=== PATIENT | female | born 1945 | race Caucasian/White ===

== ENCOUNTER 2018-03-08 13:19 | Inpatient (IN) ==
--- NOTE | 2018-03-08 13:56 | Emergency Department Note ---
Disposition Clinical Impression: History of multiple myeloma, Left elbow pain Fever Qualifiers: Fever type: unspecified Qualified Code(s): R50.9 - Fever, unspecified Disposition: Admitted As Inpatient Condition: Good Referrals: Karthikeyan Quinones MD [Primary Care Provider] - Forms: ED Satisfaction Letter Time of Disposition: 17:19 Fever HPI - General Chief Complaint: ED Fever Stated Complaint: fever, CA PT Time Seen by Provider: 03/08/18 13:39 Source: patient Mode of arrival: wheelchair Limitations: no limitations Nursing Notes Reviewed: Yes Vital Signs Reviewed: Yes - History of Present Illness HPI Narrative: Patient is a 72-year-old female with past medical history of hypertension, hyperlipidemia, diabetes, left elbow surgery at the beginning of February. She also has a history of multiple myeloma and follows up with her cancer center. She has not started any chemotherapy at this time and goes for bone biopsy this coming week. She presents today due to fever, generalized fatigue. She denies any cough, phlegm production, chest pain, shortness of breath, nausea, vomiting , abdominal pain, dysuria, hematuria. Denies any URI symptoms. She does note very mild redness around her incision site on the left elbow and states that it is mildly tender to the touch. Otherwise, no other concern for any other skin breakdown or any other skin lesions anywhere else. Is not on any immuno suppressive medications. - Related Data Home Medications Medication Instructions Recorded Confirmed Atorvastatin [Lipitor] 10 mg PO HS 02/14/18 03/08/18 Cholecalciferol (D-3) [Vitamin D] 2,000 unit PO DAILY 02/14/18 03/08/18 Citalopram Hydrobromide 20 mg PO BID 02/14/18 03/08/18 [Citalopram HBr] Fesoterodine Fumarate [Toviaz] 4 mg PO DAILY 02/14/18 03/08/18 Furosemide [Lasix] 20 mg PO DAILY PRN 02/14/18 03/08/18 Metformin HCl 1,000 mg PO BID 02/14/18 03/08/18 Pantoprazole Sodium [Protonix] 40 mg PO DAILY 02/14/18 03/08/18 Verapamil [Isoptin] 120 mg PO BID 02/14/18 03/08/18 Vit C/E/Zn/Coppr/Lutein/Zeaxan 1 cap PO DAILY 02/14/18 03/08/18 [Preservision Areds 2 Softgel] Ubidecarenone [Co Q10] 200 mg PO DAILY 02/24/18 03/08/18 Ferrous Sulfate [Iron] 325 mg PO BID 03/08/18 03/08/18 Previous Rx's Medication Instructions Recorded Dexamethasone [Decadron] 5 tab PO QWEEK #60 tab 02/24/18 Lenalidomide [Revlimid] 25 mg PO DAILY #14 capsule 02/24/18 Allergies Allergy/AdvReac Type Severity Reaction Status Date / Time Sulfa (Sulfonamide Allergy Hives Verified 03/08/18 13:27 Antibiotics) All systems ED: reviewed and negative except as stated. Constitutional: Reports: fever Cardiovascular: Denies: chest pain Respiratory: Denies: cough, dyspnea Gastrointestinal: Denies: abdominal pain, nausea, vomiting, diarrhea Genitourinary: Denies: urgency, dysuria, frequency Musculoskeletal: Denies: back pain, neck pain Integumentary: Denies: rash Neurological: Denies: headache, weakness, numbness, paresthesias Fever PMH - Past Medical History Medical history: Reports: arthritis, diabetes, GERD, hypertension Surgical history: Reports: appendectomy, cholecystectomy, hysterectomy, knee replacement Psychiatric history: Reports: anxiety, depression - Social History Smoking Status: Never smoker Alcohol use: Reports: rarely Drug use: Reports: none Physical Exam - General Limitations: no limitations General appearance: alert, in no apparent distress - Head Head exam: atraumatic, normocephalic, normal inspection - Eye Eye exam: Present: normal appearance, PERRL, EOMI - ENT ENT exam: normal exam, normal oropharynx, mucous membranes moist - Neck Neck exam: Present: normal inspection, full ROM, trachea midline - Chest Chest inspection: Present: normal inspection, symmetric chest wall rise - Respiratory Respiratory exam: Present: normal lung sounds bilaterally - Cardiovascular Cardiovascular exam: Present: regular rate, normal rhythm, normal heart sounds - Abdominal Exam Abdominal exam: Present: soft, Non-Tender. Absent: tenderness, distention, guarding, rebound, rigidity - Extremities Exam Extremities exam: Present: full ROM, other (Very mild pink 2 cm x 2 cm area near the left elbow incision, mild overlying tenderness. No obvious signs of any cellulitis or abscess.). Absent: tenderness, pedal edema - Neurological Exam Neurological exam: Present: alert, oriented X3 - Psychiatric Psychiatric exam: Present: normal affect, normal mood - Skin Skin exam: Present: warm, dry, intact, normal color Course Course Narrative: Patient had a temperature of 103.5 on presentation. Physical exam fairly benign except for some mild pinkness around the left elbow incision site but no overt cellulitis or abscess appreciated. We will perform basic workup including urinalysis, chest x-ray, respiratory panel, flu to assess for any other infectious etiologies. I do not feel that the left elbow is source of infection at this time. 17:16 lactic acid within normal limits. Blood cultures have been sent. chest x-ray negative. Urinalysis negative. Basic blood work shows hyponatremia that is near baseline for the patient. Patient still feels unwell. We will admit for fever of unknown origin at this time. Dr. Zamora has requested that I talk with orthopedics due to concern for left elbow. I talked with Dr. Mayfield who has requested an x-ray of the left elbow. This has been ordered. Medicine will follow up on x-ray imaging. Consult has been placed for orthopedics to see the patient tomorrow. Empiric vancomycin and Zosyn have been started. Tylenol givne for fever. Chest X-Ray 03/08/18 13:56 IMPRESSION: No acute cardiopulmonary disease. D/ / 03/08/2018 14:40:56 Power Omalley MD / flo Interpreting Provider: Power Omalley MD Vital Signs Temperature 103.2 F H 03/08/18 13:25 Pulse Rate 81 03/08/18 13:25 Respiratory Rate 18 03/08/18 13:25 Blood Pressure 186/90 03/08/18 13:25 O2 Sat by Pulse Oximetry 95 03/08/18 13:25 Temperature 100.2 F H 03/08/18 16:03 Pulse Rate 88 03/08/18 16:03 Respiratory Rate 17 03/08/18 16:03 Blood Pressure 149/72 03/08/18 16:03 O2 Sat by Pulse Oximetry 96 03/08/18 16:03 Oxygen Delivery Oxygen Delivery Room Air Fever - MDM Narrative Medical decision making narrative: Patient had a temperature of 103.5 on presentation. Physical exam fairly benign except for some mild pinkness around the left elbow incision site but no overt cellulitis or abscess appreciated. We will perform basic workup including urinalysis, chest x-ray, respiratory panel, flu to assess for any other infectious etiologies. I do not feel that the left elbow is source of infection at this time. 17:16 lactic acid within normal limits. Blood cultures have been sent. chest x-ray negative. Urinalysis negative. Basic blood work shows hyponatremia that is near baseline for the patient. Patient still feels unwell. We will admit for fever of unknown origin at this time. Dr. Zamora has requested that I talk with orthopedics due to concern for left elbow. I talked with Dr. Mayfield who has requested an x-ray of the left elbow. This has been ordered. Medicine will follow up on x-ray imaging. Consult has been placed for orthopedics to see the patient tomorrow. Empiric vancomycin and Zosyn have been started. Tylenol givne for fever. - Medical Records Medical records reviewed: Yes I reviewed the patient's medical records. - Lab Data Lab results reviewed: Yes I reviewed the patient's lab results. Result diagrams: 03/08/18 14:26 03/08/18 14:26 Lab Results 03/08/18 03/08/18 03/08/18 Range/Units 14:26 14:26 14:26 WBC 10.9 (4.3-11.1) K/mcL RBC 2.74 L (3.82-4.97) M/mcL Hgb 8.9 L (11.5-15.4) g/dL Hct 27.5 L (35.3-44.9) % MCV 100.4 H (83.0-100.0) fL MCH 32.5 (28.0-33.3) pg MCHC 32.4 (31.6-35.5) g/dL RDW 17.5 H (11.5-14.5) % Plt Count 244 (140-400) K/mcL MPV 9.6 (9.4-12.4) fL Immature Gran % 0.4 (0-4) % Seg Neutrophils % 57.5 % Lymphocytes % 32.9 % Monocytes % 8.3 % Eosinophils % 0.8 % Basophils % 0.1 % Neutrophils # 6.3 (1.6-8.9) K/mcL Lymphocytes # 3.6 (0.6-4.6) K/mcL Monocytes # 0.9 (0.0-1.3) K/mcL Eosinophils # 0.1 (0.0-0.6) K/mcL Basophils # 0.0 (0.0-0.2) K/mcL Nucleated RBCs/100 WBC 0.2 H (0) /100 WBC Sodium 129 L (136-145) mEq/L Potassium 3.6 (3.5-5.1) mEq/L Chloride 102 (98-107) mEq/L Carbon Dioxide 29 (23-29) mEq/L BUN 12 (8-23) mg/dL Creatinine 0.65 (0.60-1.20) mg/dL Est GFR ( Amer) > 60 (> 60) Est GFR (Non-Af Amer) > 60 (> 60) BUN/Creatinine Ratio 18 (6-26) Glucose 133 H (70-105) mg/dL Calculated Osmolality 270 L (280-300) Lactic Acid 1.6 (0.5-2.2) mmol/L Calcium 8.9 (8.6-10.3) mg/dL Urine Color (Yellow) Urine Clarity (Clear) Urine pH (5.0-8.0) pH Units Ur Specific [place] (1.010-1.025) Urine Protein (Neg-Trace) mg/dL Urine Glucose (UA) (Normal) mg/dL Urine Ketones (Negative) mg/dL Urine Blood (Negative) Urine Nitrite (Negative) Urine Bilirubin (Negative) Urine Urobilinogen (Normal) mg/dL Ur Leukocyte Esterase (Negative) Ur Culture Indicated? (NO) Chlamy pneumoniae PCR (Not Detect) Adenovirus (PCR) (Not Detect) B. pertussis DNA (PCR) (Not Detect) B.parapertussis DNA PCR (Not Detect) Coronavirus OC43 (PCR) (Not Detect) Coronavirus HKU1 (PCR) (Not Detect) Coronavirus 229E (PCR) (Not Detect) Coronavirus NL63 (PCR) (Not Detect) Human Metapneumovir PCR (Not Detect) Influenza A (H1) PCR (Not Detect) Influ A (H1N1/09) PCR (Not Detect) Influenza A (H3) PCR (Not Detect) Influenza A Untype (PCR) (Not Detect) Influenza Type B (PCR) (Not Detect) M.pneumoniae DNA (PCR) (Not Detect) Parainfluenza 1 (PCR) (Not Detect) Parainfluenza 2 (PCR) (Not Detect) Parainfluenza 3 (PCR) (Not Detect) Parainfluenza 4 (PCR) (Not Detect) RSV (PCR) (Not Detect) Entero/Rhino (PCR) (Not Detect) Specimen Rejected 03/08/18 03/08/18 03/08/18 Range/Units 14:55 15:08 15:26 WBC (4.3-11.1) K/mcL RBC (3.82-4.97) M/mcL Hgb (11.5-15.4) g/dL Hct (35.3-44.9) % MCV (83.0-100.0) fL MCH (28.0-33.3) pg MCHC (31.6-35.5) g/dL RDW (11.5-14.5) % Plt Count (140-400) K/mcL MPV (9.4-12.4) fL Immature Gran % (0-4) % Seg Neutrophils % % Lymphocytes % % Monocytes % % Eosinophils % % Basophils % % Neutrophils # (1.6-8.9) K/mcL Lymphocytes # (0.6-4.6) K/mcL Monocytes # (0.0-1.3) K/mcL Eosinophils # (0.0-0.6) K/mcL Basophils # (0.0-0.2) K/mcL Nucleated RBCs/100 WBC (0) /100 WBC Sodium (136-145) mEq/L Potassium (3.5-5.1) mEq/L Chloride (98-107) mEq/L Carbon Dioxide (23-29) mEq/L BUN (8-23) mg/dL Creatinine (0.60-1.20) mg/dL Est GFR ( Amer) (> 60) Est GFR (Non-Af Amer) (> 60) BUN/Creatinine Ratio (6-26) Glucose (70-105) mg/dL Calculated Osmolality (280-300) Lactic Acid (0.5-2.2) mmol/L Calcium (8.6-10.3) mg/dL Urine Color Yellow (Yellow) Urine Clarity Clear (Clear) Urine pH 7.5 (5.0-8.0) pH Units Ur Specific [place] 1.017 (1.010-1.025) Urine Protein Negative (Neg-Trace) mg/dL Urine Glucose (UA) Normal (Normal) mg/dL Urine Ketones Negative (Negative) mg/dL Urine Blood Negative (Negative) Urine Nitrite Negative (Negative) Urine Bilirubin Negative (Negative) Urine Urobilinogen Normal (Normal) mg/dL Ur Leukocyte Esterase Negative (Negative) Ur Culture Indicated? NO (NO) Chlamy pneumoniae PCR Not Detected (Not Detect) Adenovirus (PCR) Not Detected (Not Detect) B. pertussis DNA (PCR) Not Detected (Not Detect) B.parapertussis DNA PCR Not Detected (Not Detect) Coronavirus OC43 (PCR) Not Detected (Not Detect) Coronavirus HKU1 (PCR) Not Detected (Not Detect) Coronavirus 229E (PCR) Not Detected (Not Detect) Coronavirus NL63 (PCR) Not Detected (Not Detect) Human Metapneumovir PCR Not Detected (Not Detect) Influenza A (H1) PCR Not Detected (Not Detect) Influ A (H1N1/09) PCR Not Detected (Not Detect) Influenza A (H3) PCR Not Detected (Not Detect) Influenza A Untype (PCR) Not Detected (Not Detect) Influenza Type B (PCR) Not Detected (Not Detect) M.pneumoniae DNA (PCR) Not Detected (Not Detect) Parainfluenza 1 (PCR) Not Detected (Not Detect) Parainfluenza 2 (PCR) Not Detected (Not Detect) Parainfluenza 3 (PCR) Not Detected (Not Detect) Parainfluenza 4 (PCR) Not Detected (Not Detect) RSV (PCR) Not Detected (Not Detect) Entero/Rhino (PCR) Not Detected (Not Detect) Specimen Rejected Container - Radiology Data Radiology results reviewed: Yes I reviewed the patient's radiology results. S.B.A.R. - S.B.A.R. Situation: Demographics, MOA Background: Presenting Complaint, Relevant PMH, Meds, & Allergies Assessment: Vital Signs, Course and respsone to treatment, Exam Concerns, Patient/Family Expectation, Pertinant Lab Results Recommendation: Barrier(s) to disposition, Recommendation based on pending studies, treatments, or consults S.B.A.R. Report Given to: Dr Sera Alejo Repor Time: 17:20 Attestation Statement - Attestation Attestation: I examined this patient and my medical decision-making was reviewed with the Resident Physician. I agree with the documented findings, disposition and treatment plan as described except to the extent set forth below. Fever without certain cause, cultures sent, the left arm is a little more red than normal but has not declared itself as a potential source of infection. I would at this point admit for observation, observe left arm, start antibiotics given history of significant co morbidity.
[2018-03-08 14:42] LABS: Basophils % 0.1 %; Eosinophils # 0.1 K/mcL (0.0-0.6); Eosinophils % 0.8 %; Hematocrit 27.5 % (35.3-44.9); Hemoglobin 8.9 g/dL (11.5-15.4); Immature Granulocytes % 0.4 % (0-4); Lymphocytes # 3.6 K/mcL (0.6-4.6); Lymphocytes % 32.9 %; Mean Corpuscular HGB Conc 32.4 g/dL (31.6-35.5); Mean Corpuscular Hemoglobin 32.5 pg (28.0-33.3); Mean Corpuscular Volume 100.4 fL (83.0-100.0); Mean Platelet Volume 9.6 fL (9.4-12.4); Monocytes # 0.9 K/mcL (0.0-1.3); Monocytes % 8.3 %; Neutrophils # 6.3 K/mcL (1.6-8.9); Nucleated Red Blood Cells 0.2 /100 WBC (0); Platelet Count 244 K/mcL (140-400); Red Blood Count 2.74 M/mcL (3.82-4.97); Red Cell Distribution Width 17.5 % (11.5-14.5); Segmented Neutrophils % 57.5 %
[2018-03-08 15:01] LABS: BUN/Creatinine Ratio 18 (6-26); Blood Urea Nitrogen 12 mg/dL (8-23); Calcium 8.9 mg/dL (8.6-10.3); Carbon Dioxide 29 mEq/L (23-29); Chloride 102 mEq/L (98-107); Glucose 133 mg/dL (70-105); Osmolality,Calculated 270 (280-300); Potassium 3.6 mEq/L (3.5-5.1); Sodium 129 mEq/L (136-145); eGFR For Non-African Americans > 60 (> 60)
[2018-03-08 16:09] LABS: Bilirubin,Urine Negative (Negative); Blood,Urine Negative (Negative); Clarity,Urine Clear (Clear); Color,Urine Yellow (Yellow); Glucose,Urine (UA) Normal (Normal); Ketones,Urine Negative (Negative); Leukocyte Esterase,Urine Negative (Negative); Nitrite,Urine Negative (Negative); PH,Urine 7.5 pH Units (5.0-8.0); Protein,Urine Negative (Neg-Trace); Specific Gravity,Urine 1.017 (1.010-1.025); Urobilinogen,Urine Normal (Normal)
[2018-03-08 16:26] LABS: Adenovirus Not Detected (Not Detect); Bordetella Pertussis Not Detected (Not Detect); Chlamydophila pneumoniae Not Detected (Not Detect); Coronavirus 229E Not Detected (Not Detect); Coronavirus HKU1 Not Detected (Not Detect); Coronavirus NL63 Not Detected (Not Detect); Coronavirus OC43 Not Detected (Not Detect); Human Metapneumovirus Not Detected (Not Detect); Human Rhinovirus/Enterovirus Not Detected (Not Detect); Influenza A Subtype 2009 H1 Not Detected (Not Detect); Influenza A Untypeable Not Detected (Not Detect); Influenza B Not Detected (Not Detect); Mycoplasma pneumoniae Not Detected (Not Detect); Parainfluenza Virus 1 Not Detected (Not Detect); Parainfluenza Virus 2 Not Detected (Not Detect); Parainfluenza Virus 3 Not Detected (Not Detect); Parainfluenza Virus 4 Not Detected (Not Detect); Respiratory Syncytial Virus Not Detected (Not Detect)
[2018-03-08] MEDS ORDERED: Piperacillin/Tazobactam 3.375 GM in 0.9 % Sodium Chloride Mini Bag 100 ML IVPB ONE (16:58)
[2018-03-08] MEDS ORDERED: *HR* Dextrose 50 % in Water (Syg) 50 ML SYRINGE IVP PRN (20:15)
[2018-03-08] MEDS ORDERED: D5% in Water 1,000 ML IVC PRN (20:15)
[2018-03-08] MEDS ORDERED: Naloxone 0.4 MG/ML INJ IVP PRN (20:15)
[2018-03-08] MEDS ORDERED: Dextrose Gel 15 GM/37.5 ML TUBE PO PRN ×2 (20:15)
[2018-03-08] MEDS ORDERED: Vancomycin (wt based) 1,000 MG VIAL IVPB SCH (21:00)
--- NOTE | 2018-03-08 21:04 | Internal Med History&Physical ---
Date of Encounter: 03/08/18 Time of Encounter: 19:50 Internal Medicine - H&P: HPI Chief complaint: fever, chills, elbow pain Admitted From: Emergency Dept Plans for Post Hospital Care: Home History of present illness: Ms. Wayne is a 72 year old female who presents to the ER today with complaints of sudden onset of fevers, chills, sweats, and left elbow pain. Symptoms started at 11:00 this morning and have persisted ever since. She was feeling well up until then. In the ER, she had temperature spikes up to 103.2 degrees Fahrenheit. Her labs did not suggest an elevated white count or evidence of end-organ damage. However, her sodium level is low. ER contacted me to admit patient. Given her recent elbow surgery roughly 2 weeks ago and recent diagnosis of multiple myeloma, I was concerned about sepsis. I asked ER staff to contact orthopedics to discuss imaging of her elbow for concerns as a source of infection. An x-ray was performed which was negative. Upon my assessment of the patient several hours later on the floor, patient appears clinically ill and septic. Her blood pressure is preserved and she is not in shock. However, she is having active rigors, sweating, and running a fever. She complains of significant pain in her left elbow which started suddenly today. She is able to flex and extend her elbow, but not to the degree she was able to do so yesterday. It is full, warm, tender, but without erythema or any sign of wound infection. Nonetheless, I worry about the elbow as a source of infection. She has no other prosthetic or vascular access device present. I called and spoke with Dr. Ortiz regarding further imaging modality and for advice, and he recommended proceeding with a noncontrast CT of the elbow and orthopedics will see her in the morning. Past Med Surg Social Fam HX - Past Medical History Attestation: Yes The following information was validated with the patient. Source: patient, old records reviewed Medical history: arthritis, diabetes, GERD, hypertension, other (multiple myeloma) Additional medical history: sleep apnea Psychiatric history: anxiety, depression - Past Surgical History Surgical History: appendectomy, cholecystectomy, hysterectomy, knee replacement , orthopedic, other (left elbow surgery 2 weeks ago) Additional surgical history: bilateral cataracts - Social History Smoking Status: Never smoker Smokeless Tobacco Status: No Alcohol use: rarely Drug use: none Current living situation: Home - Independent Activity Level: Independent ambulation Recent Out of Country Travel Within the Last 8 Weeks: No - Family History Sister Hx Family Cardiac Disorders: Yes (OR) Hx Family Cancer: Yes (Colon) Grandfather Hx Family Cardiac Disorders: Yes (Stroke) Internal Medicine - H&P: Meds Atorvastatin [Lipitor] 10 mg PO HS 02/14/18 [History] Cholecalciferol (D-3) [Vitamin D] 2,000 unit PO DAILY 02/14/18 [History] Citalopram Hydrobromide [Citalopram HBr] 20 mg PO BID 02/14/18 [History] Fesoterodine Fumarate [Toviaz] 4 mg PO DAILY 02/14/18 [History] Furosemide [Lasix] 20 mg PO DAILY PRN 02/14/18 [History] Metformin HCl 1,000 mg PO BID 02/14/18 [History] Pantoprazole Sodium [Protonix] 40 mg PO DAILY 02/14/18 [History] Verapamil [Isoptin] 120 mg PO BID 02/14/18 [History] Vit C/E/Zn/Coppr/Lutein/Zeaxan [Preservision Areds 2 Softgel] 1 cap PO DAILY 05/25 [History] Dexamethasone [Decadron] 5 tab PO QWEEK #60 tab 02/24/18 [Rx] Lenalidomide [Revlimid] 25 mg PO DAILY #14 capsule 02/24/18 [Rx] Ubidecarenone [Co Q10] 200 mg PO DAILY 02/24/18 [History] Ferrous Sulfate [Iron] 325 mg PO BID 03/08/18 [History] 3 Allergy/AdvReac Type Severity Reaction Status Date / Time Sulfa (Sulfonamide Allergy Hives Verified 03/08/18 13:27 Antibiotics) - Constitutional Constitutional: chills, fatigue, fever(s), night sweats - EENT Eyes: no blurry vision, no change in vision Ears: no tinnitus Nose, mouth and throat: no nasal congestion, no sinus pressure, no sore throat - Cardiovascular Cardiovascular ROS IM: no chest pain, no dyspnea, no dyspnea on exertion, no edema - Respiratory Respiratory: no cough, no hemoptysis, no chest congestion, no excessive phlegm production, no change in phlegm color - Gastrointestinal Gastrointestinal: nausea, no abdominal pain, no diarrhea, no hematemesis, no hematochezia, no melena, no vomiting - Genitourinary Genitourinary: no dysuria, no flank pain, no hematuria - Musculoskeletal Musculoskeletal ROS IM: arthralgias (left elbow -- sudden onset today), no back pain - Integumentary Integumentary IM: no rash, no jaundice - Neurological Neurological ROS: no focal weakness, no frequent falls, no headache(s) - Psychiatric Psychiatric: no anxiety, no depression - Endocrine Endocrine IM: no polydipsia, no polyuria - Allergic/Immunologic Allergic/Immunologic: no wheezing, no GI upset with certain foods - Constitutional Vitals: Temp Pulse Resp BP Pulse Ox 100.9 F H 82 15 158/83 94 03/08/18 18:59 03/08/18 18:59 03/08/18 18:59 03/08/18 18:59 03/08/18 18:59 General appearance: Present: cooperative, A&O X 3, pleasant Exam: acutely ill but non-toxic, active rigors, sweating, and complaining of significant left elbow pain - Head Head exam: Present: atraumatic, normal inspection - Eye Eye exam: Present: EOMI, PERRL. Absent: scleral icterus Pupils: Present: normal accommodation - ENT ENT exam: Present: mucous membranes dry, normal exam, normal oropharynx - Neck Neck exam general surgery: Present: full ROM, supple. Absent: tenderness, nuchal rigidity, thyromegaly - Respiratory Respiratory exam: Present: CTAB, tachypnea. Absent: chest wall tenderness, rales, respiratory distress, rhonchi, wheezes - Cardiovascular Cardiovascular exam: Present: distant heart sounds, RRR, +S1, +S2. Absent: diastolic murmur, systolic murmur - GI/Abdominal GI/Abdominal exam: Present: normal bowel sounds, soft. Absent: guarding, hepatomegaly, mass, rebound, splenomegaly, tenderness - Extremities Exam Extremities exam: Present: joint swelling (left elbow -- warm, tender, decreased range of motion; wound appears intact and without drainage), warm, radial pulses palpable and symmetrical. Absent: calf tenderness, full ROM ( decreased ROM left elbow), pedal edema - Back Exam Back exam: Absent: CVA tenderness (L), CVA tenderness (R) - Neurological Exam Neurological exam: Present: alert, CN II-XII intact, oriented X3, no focal deficits - Psychiatric Psychiatric exam: Present: normal affect, normal mood - Skin Skin exam: Present: dry, intact, warm Additional comments: left elbow wound intact, clean, dry, and without drainage; however, left elbow warm and very tender Internal Med - H&P Results - Labs CBC & Chem 7: 03/08/18 14:26 03/08/18 14:26 - Diagnostic Studies Chest x-ray Status: image reviewed by me (negative) Other Images Status: image reviewed by me (Left Elbow -- negative) - Assessment and plan (1) Sepsis Current Visit: Yes Status: Acute Assessment and plan: 1. Given recent diagnosis of multiple myeloma and recent elbow surgery, I worry about the left elbow as source of infection. 2. I spoke with Dr. Ortiz and will proceed with CT imaging of elbow. 3. Orthopedics consulted. 4. Blood cultures drawn. 5. Will continue IV Vancomycin and Zosyn. 6. Will trend lactate levels and monitor closely. 7. Continue IVF and monitor BP/hemodynamics. Qualifiers: Sepsis type: sepsis due to unspecified organism Qualified Code(s): A41.9 - Sepsis, unspecified organism (2) Multiple myeloma Current Visit: Yes Status: Chronic Assessment and plan: 1. Patient has yet to start treatment. 2. Patient due to have bone marrow biopsy and begin treatment next week. 3. Consult oncology if necessary. Qualifiers: Multiple myeloma remission status: not in remission Qualified Code(s): C90.00 - Multiple myeloma not having achieved remission (3) Diabetes type 2, controlled Current Visit: Yes Status: Chronic Assessment and plan: 1. Hold oral meds. 2. Will monitor glucose and provide SSI coverage. Qualifiers: Diabetes mellitus fdc insulin use: without machine long goods helper use Diabetes mellitus complication status: without complication Qualified Code(s): E11.9 - Type 2 diabetes mellitus without complications (4) DVT prophylaxis Current Visit: Yes Status: Acute Assessment and plan: 1. Heparin SQ.
[2018-03-08] MEDS: 0.9 % Sodium Chloride w KCl 20 MEQ/1,000 ML MLS IVC SCH (21:19)
--- NOTE | 2018-03-08 21:34 | Orthopedic Consult Note ---
Date of Encounter: 03/08/18 Time of Encounter: 18:00 Assessment and Plan (1) History of arthroplasty Current Visit: No Status: Acute POW#3 s/p left total elbow arthroplasty [id number] Xrays today showed stable bony alignment and hardware intact with no acute abnormalities. Incision appears to be healing well with no obvious s/s infection at this time. Do not suspect this to be the source of the fever at this time. ROM as tolerated. Continue NWB. May ice and elevate elbow as needed. Orthopedics will continue to monitor closely for any changes to elbow. (2) Fever Current Visit: Yes Status: Acute workup and antibiotics per primary team. Qualifiers: Fever type: unspecified Qualified Code(s): R50.9 - Fever, unspecified History of Present Illness Chief complaint: fever HPI: Ms. Wayne is a 72 year old female who presented to the ER with sudden onset of fevers and chills around 11am today. She does have recent h/o left total elbow arthroplasty 02/14/18 and recent diagnosis of multiple myeloma for which she has just started following with oncology and scheduled for bone biopsy soon. She states she was doing well up until today. States fever came on quickly and she generally has not felt well since then. Denies any injuries to the elbow, denies any drainage from the incision. States she has had a little decrease in motion compared to earlier this week but no significant increase in pain with motion of the elbow. Denies any new numbness or tingling. Denies any chest pain or SOB at time of exam. Past Med Surg Social Fam HX - Past Medical History Medical history: arthritis, diabetes, GERD, hypertension Additional medical history: sleep apnea Psychiatric history: anxiety, depression - Past Surgical History Surgical History: appendectomy, cholecystectomy, hysterectomy, knee replacement Additional surgical history: bilateral cataracts - Social History Smoking Status: Never smoker Smokeless Tobacco Status: No Alcohol use: rarely Drug use: none - Family History Sister Hx Family Cardiac Disorders: Yes ([place]) Hx Family Cancer: Yes (Colon) Grandfather Hx Family Cardiac Disorders: Yes (Stroke) Medications and Allergies Atorvastatin [Lipitor] 10 mg PO HS 02/14/18 [History] Cholecalciferol (D-3) [Vitamin D] 2,000 unit PO DAILY 02/14/18 [History] Citalopram Hydrobromide [Citalopram HBr] 20 mg PO BID 02/14/18 [History] Fesoterodine Fumarate [Toviaz] 4 mg PO DAILY 02/14/18 [History] Furosemide [Lasix] 20 mg PO DAILY PRN 02/14/18 [History] Metformin HCl 1,000 mg PO BID 02/14/18 [History] Pantoprazole Sodium [Protonix] 40 mg PO DAILY 02/14/18 [History] Verapamil [Isoptin] 120 mg PO BID 02/14/18 [History] Vit C/E/Zn/Coppr/Lutein/Zeaxan [Preservision Areds 2 Softgel] 1 cap PO DAILY 05/25 [History] Dexamethasone [Decadron] 5 tab PO QWEEK #60 tab 02/24/18 [Rx] Lenalidomide [Revlimid] 25 mg PO DAILY #14 capsule 02/24/18 [Rx] Ubidecarenone [Co Q10] 200 mg PO DAILY 02/24/18 [History] Ferrous Sulfate [Iron] 325 mg PO BID 03/08/18 [History] 3 Allergy/AdvReac Type Severity Reaction Status Date / Time Sulfa (Sulfonamide Allergy Hives Verified 03/08/18 13:27 Antibiotics) All Systems Reviewed: The remainder of the systems were reviewed and are negative - Constitutional Constitutional: as per HPI - Cardiovascular Cardiovascular: as per HPI - Respiratory Respiratory: as per HPI - Musculoskeletal Musculoskeletal: as per HPI Physical Exam - Constitutional Vitals: Temp Pulse Resp BP Pulse Ox 100.9 F H 82 15 158/83 94 03/08/18 18:59 03/08/18 18:59 03/08/18 18:59 03/08/18 18:59 03/08/18 18:59 - Elbow left Location of pain elbow: posterior (Incision well healed with small areas of scab still intact, no surrounding erythema to incision, small roughly quarter sized area of very mild erythema on medial side of incision just proximal to olecranon. minimal swelling and warmth within expectation postoperative. No significant tenderness to palpation, no fluctuance noted. ROM roughly 20-90 degrees at elbow. full hand and wrist motion. brisk cap refill. grossly NV intact. ) Results - Labs Result Diagrams: 03/08/18 14:26 03/08/18 14:26 Labs: Abnormal lab results RBC 2.74 M/mcL (3.82-4.97) L 03/08/18 14:26 Hgb 8.9 g/dL (11.5-15.4) L 03/08/18 14:26 Hct 27.5 % (35.3-44.9) L 03/08/18 14:26 MCV 100.4 fL (83.0-100.0) H 03/08/18 14:26 RDW 17.5 % (11.5-14.5) H 03/08/18 14:26 Nucleated RBCs/100 WBC 0.2 /100 WBC (0) H 03/08/18 14:26 Sodium 129 mEq/L (136-145) L 03/08/18 14:26 Glucose 133 mg/dL (70-105) H 03/08/18 14:26 Calculated Osmolality 270 (280-300) L 03/08/18 14:26 All other labs normal. - Diagnostic results Elbow x-ray: report reviewed, image reviewed Consult Discharge Plan - Plan Referrals: Karhtikeyan Quinones MD [Primary Care Provider] - - Attending Attestation Case and plan of care discussed with supervising physician who was available for all aspects of care.
[2018-03-08] MEDS ORDERED: Ondansetron 4 MG/2 ML VIAL IVP PRN (22:27)
[2018-03-08] MEDS: Acetaminophen 325 MG TABLET PO PRN (22:38)
[2018-03-08] MEDS: Piperacillin/Tazobactam 3.375 GM in 0.9 % Sodium Chloride Mini Bag 100 ML IVPB SCH (23:51)
[2018-03-09 03:47] LABS: Basophils % 0.2 %; Eosinophils % 0.2 %; Hematocrit 26.6 % (35.3-44.9); Hemoglobin 8.4 g/dL (11.5-15.4); Immature Granulocytes % 1.1 % (0-4); Lymphocytes # 3.9 K/mcL (0.6-4.6); Lymphocytes % 31.7 %; Mean Corpuscular HGB Conc 31.6 g/dL (31.6-35.5); Mean Corpuscular Hemoglobin 31.2 pg (28.0-33.3); Mean Corpuscular Volume 98.9 fL (83.0-100.0); Mean Platelet Volume 10.2 fL (9.4-12.4); Monocytes # 0.7 K/mcL (0.0-1.3); Monocytes % 5.4 %; Neutrophils # 7.6 K/mcL (1.6-8.9); Platelet Count 244 K/mcL (140-400); Red Blood Count 2.69 M/mcL (3.82-4.97); Segmented Neutrophils % 61.4 %
[2018-03-09 04:02] LABS: INR 1.4; Prothrombin Time 15.4 Seconds (9.4-12.1)
[2018-03-09 04:12] LABS: Alanine Aminotransferase 13 Units/L (7-52); Albumin 3.4 g/dL (3.5-5.7); Albumin/Globulin Ratio 0.6 (1.1-2.2); Alkaline Phosphatase 78 Units/L (34-104); Aspartate Amino Transferase 15 Units/L (13-39); BUN/Creatinine Ratio 15 (6-26); Bilirubin,Total 0.5 mg/dL (0.3-1.0); Blood Urea Nitrogen 10 mg/dL (8-23); Calcium 8.5 mg/dL (8.6-10.3); Carbon Dioxide 23 mEq/L (23-29); Chloride 102 mEq/L (98-107); Globulin 5.4 g/dL (2.4-3.5); Glucose 135 mg/dL (70-105); Magnesium 1.4 mg/dL (1.6-2.6); Osmolality,Calculated 275 (280-300); Potassium 3.4 mEq/L (3.5-5.1); Sodium 132 mEq/L (136-145); Total Protein 8.8 g/dL (6.4-8.9); eGFR For Non-African Americans > 60 (> 60)
[2018-03-09] MEDS: *HR* Heparin 5,000 UNIT/ML VIAL SQ SCH ×2 (05:27→17:21)
[2018-03-09] MEDS: Acetaminophen 325 MG TABLET PO PRN ×2 (05:27→16:20)
--- NOTE | 2018-03-09 06:55 | Orthopedics Progress Note ---
Date of Encounter: 03/09/18 Time of Encounter: 06:53 Subjective Interval history: S: I did review the chart and evaluated the patient this morning. This patient is a 72-year-old female who was treated for pathologic fracture to the left elbow about 3 weeks ago by my partner Dr. Mayfield. She underwent total elbow arthroplasty. Final pathology came back as multiple myeloma. She has been recovering reasonably well however, she was admitted to the hospitalist after developing fevers starting yesterday morning around 11:00 associated with chills. On my evaluation this morning the patient does indicate that the chills have resolved and her feelings of illness have improved. She currently denies any pain to the left elbow and feels that it is functioning well. She denies any other pains throughout the extremities. O: She has been febrile yesterday. The incision has healed nicely to the left elbow. There is no redness, drainage , and minimal swelling. No induration or fluctuance. I can gently passively range the elbow from 30 degrees to 100 degrees without any pain. I can gently pronate and supinate the forearm without pain. She has full motion to the wrist and the digits. The patient can actively flex and extend all digits, extend the thumb, cross the index and long fingers, make an okay sign, and oppose the thumb. The fingertips are all grossly sensate and well-perfused, and the radial artery pulse is 2+. I did review the x-rays and the CT scan of the left elbow which do show a well- positioned total elbow arthroplasty area and no effusion is appreciated on the CT scan. A: Fevers of unknown origin. Post left total elbow arthroplasty. P: Though the patient does have fevers which appear to be cyclical, the clinical appearance of the total elbow is very benign with painless motion and unremarkable imaging. No significant pushing, pulling, or lifting with the left elbow or active elbow extension. We will observe clinically at this point. No plans for surgical intervention on the left elbow at this time. Objective Vital signs: Vital Signs Temp Pulse Resp BP Pulse Ox 03/09/18 06:30 100.8 F H 88 17 113/56 94 03/09/18 03:46 98.8 F 77 15 149/75 90 03/08/18 22:38 103.1 F H 97 14 166/74 94 Intake and Output 03/08/18 03/08/18 03/09/18 15:59 23:59 07:59 Intake Total 600 / 600 100 / 100 Output Total 250 / 250 800 / 800 Balance 350 / 350 -700 / -700 Intake: IV Fluids 600 / 600 100 / 100 Zosyn 3.375 GM In 0.9 % Sodium 100 / 100 100 / 100 Chloride (Mini-Bag +) 100 ML @ 25 mls/hr IVPB Q8HR DAISY Rx#: [id number] Vancocin 1,750 MG In 0.9 % 500 / 500 Sodium Chloride 500 ML @ 334. 014 mls/hr IVPB ONCE ONE Rx#: [id number] Oral 0 / 0 0 / 0 Output: Urine 250 / 250 800 / 800 Other: Blood Glucose* 133 - Labs CBC & BMP: 03/09/18 02:59 03/09/18 02:59 Labs: Abnormal lab results WBC 12.3 K/mcL (4.3-11.1) H 03/09/18 02:59 RBC 2.69 M/mcL (3.82-4.97) L 03/09/18 02:59 Hgb 8.4 g/dL (11.5-15.4) L 03/09/18 02:59 Hct 26.6 % (35.3-44.9) L 03/09/18 02:59 RDW 18.0 % (11.5-14.5) H 03/09/18 02:59 Nucleated RBCs/100 WBC 0.2 /100 WBC (0) H 03/08/18 14:26 PT 15.4 Seconds (9.4-12.1) H 03/09/18 02:59 APTT 23.0 Seconds (26.0-36.0) L 03/09/18 02:59 Sodium 132 mEq/L (136-145) L 03/09/18 02:59 Potassium 3.4 mEq/L (3.5-5.1) L 03/09/18 02:59 Glucose 135 mg/dL (70-105) H 03/09/18 02:59 POC Glucose 133 mg/dL (70-99) H 03/08/18 21:13 Calculated Osmolality 275 (280-300) L 03/09/18 02:59 Calcium 8.5 mg/dL (8.6-10.3) L 03/09/18 02:59 Magnesium 1.4 mg/dL (1.6-2.6) L 03/09/18 02:59 Albumin 3.4 g/dL (3.5-5.7) L 03/09/18 02:59 Globulin 5.4 g/dL (2.4-3.5) H 03/09/18 02:59 Albumin/Globulin Ratio 0.6 (1.1-2.2) L 03/09/18 02:59 Consult Discharge Plan - Plan Referrals: Karthikeyan Quinones MD [Primary Care Provider] -
[2018-03-09] MEDS: 0.9 % Sodium Chloride w KCl 20 MEQ/1,000 ML MLS IVC SCH (07:20)
[2018-03-09] MEDS: Insulin LISPRO 300 UNITS/3 ML VIAL SQ SCH ×3 (09:00→16:21)
[2018-03-09] MEDS: Multivit/Ca/Min/Fe/FA 1 TAB TABLET PO SCH (09:04)
[2018-03-09] MEDS: Cholecalciferol (D-3) 1,000 UNIT TABLET PO SCH (09:04)
[2018-03-09] MEDS: Acyclovir 200 MG CAPSULE PO SCH ×2 (09:05→20:48)
[2018-03-09] MEDS: Piperacillin/Tazobactam 3.375 GM in 0.9 % Sodium Chloride Mini Bag 100 ML IVPB SCH ×3 (09:07→23:51)
[2018-03-09] MEDS: traMADol 50 MG TABLET PO PRN ×2 (11:34→22:25)
--- NOTE | 2018-03-09 13:59 | Infectious Disease Consult ---
Date of Encounter: 03/09/18 Time of Encounter: 13:49 Assessment and Plan (1) Sepsis Status: Acute Assessment and plan: The patient had two SIRS criteria. Likely secondary to RUE cellulitis. Fever curve is improving. WBC elevated today. Blood cultures drawn 03/08/18 are pending x 2 sets. Qualifiers: Sepsis type: sepsis due to unspecified organism Qualified Code(s): A41.9 - Sepsis, unspecified organism (2) Cellulitis Status: Acute Assessment and plan: Location: RUE. Etiology unclear, but the patient did have Dtap and Pneumococcal vaccines on . Non-purulent. Causative organism unclear. Check ESR and CRP. Get CT of the RUE with IV contrast. Continue Vancomycin IV. Pharmacy to dose. Goal trough ~15. Continue Zosyn 3.375 grams IV Q8H. Duration of treatment depends on the clinical picture. Monitor renal function and for drug toxicity and dose-adjust antibiotics. Qualifiers: Site of cellulitis: extremity Site of cellulitis of extremity: upper extremity Laterality: right Qualified Code(s): L03.113 - Cellulitis of right upper limb (3) Anemia Status: Chronic Assessment and plan: Hgb stable at around 8. Continue to trend. Further workup and management per the primary team. Qualifiers: Anemia type: unspecified type Qualified Code(s): D64.9 - Anemia, unspecified (4) History of arthroplasty Status: Acute Assessment and plan: X-ray and CT of the LUE negative for acute infectious process. (5) History of multiple myeloma Status: Acute Assessment and plan: Diagnosed February 2018. Follows with [facility]. Scheduled for bone biopsy 03/13/18 with Valcade/Revlimid to start 03/14/18. Recommend consult to Hem/Onc. (6) Hypertension Status: Chronic Qualifiers: Hypertension type: unspecified Qualified Code(s): I10 - Essential (primary ) hypertension (7) Diabetes type 2, controlled Status: Chronic Qualifiers: Diabetes mellitus shelter insulin use: without shelter use Diabetes mellitus complication status: without complication Qualified Code(s): E11.9 - Type 2 diabetes mellitus without complications Infectious Disease HPI - Data of Consult Patient: new to practice Consult date: 03/09/18 Requesting Physician: Pura Carrasco MD Primary Care Provider: Karthikeyan Quinones MD - Consult Narrative Reason for consult: Possible Septic Joint History of present illness: Ms. Wayne is a 72 year old female with a past medical history of hypertension, hyperlipidemia, diabetes, multiple myeloma, newly diagnosed, and status post left total elbow arthroplasty .. The patient was mentioned the hospital March 08 for left elbow pain and multiple myeloma. We are consulted March 09 for further recommendations for possible left elbow septic joint. Briefly, the patient's a 72-year-old female with past medical history as stated above. Apparently, the patient sustained a fall earlier this month and was complaining of some left elbow pain. She had a x-ray that showed a left distal humerus fracture and possible underlying lytic lesion. She was taken to the operating room on February [address] Mayfield and had a left total elbow arthroplasty. Pathology was positive for plasma cell myeloma and she was referred to [facility] for further workup. She saw Dr. Boles and was planning to start treatment in the next couple of weeks. She is scheduled for a bone marrow biopsy on March 13. The patient presented to the emergency department on the day of admission with complaints of fever and left elbow pain. Upon arrival, the patient was febrile with a temperature of 103.2. She was otherwise hemodynamically stable. Laboratory study showed a normal white blood cell count. Lactic acid and kidney function were normal. Urinalysis was negative. Respiratory infectious panel was negative. Blood cultures were obtained 2 sets are pending. Chest x-ray was negative. She had a left elbow x -ray that was negative. She was started empirically on vancomycin and Zosyn and admitted to the hospital for further evaluation. Since admission, the patient's white blood cell count did go up to 12.3 thousand. She has continued to have some intermittent fevers with a MAXIMUM TEMPERATURE of 100.8. Orthopedics was consult and by phone and recommended an elbow CT that showed status post left elbow arthroplasty with a defect in the lateral aspect of the distal humerus that is thought to most likely be postoperative in nature, although infection cannot entirely be excluded. There is no joint effusion, fracture, or other acute osseous abnormality. There was some nonspecific periarticular subcutaneous fat straining with no drainable fluid collection. Orthopedics saw the patient and they do not think that the elbow is the source of the patient's fever. We have been asked to evaluate and make further recommendations. During my exam today, the patient states that she was in her usual state of health until the day of admission when she had sudden-onset of chills, rigors, and fever of 103. She reports an intermittent dull headache that's been ongoing since she feel on February 09. She states she typically takes Tylenol and it goes away. She denies neck pain or stiffness. Denies congestion, earache, or sore throat. Denies chest pain, shortness of breath, or cough. Reports she had some nausea yesterday when she had a fever, but denies vomiting or diarrhea. She reports overactive bladder for which she takes medication, but denies any increase in urinary frequency, dysuria, hematuria, or abdominal pain. She reports some new right sided back pain that started yesterday as well. Reports chronic pain in the right knee secondary to OA that seems to be at baseline. She denies pain, redness, or swelling in her joints, including her right elbow which she recently had surgery on. She states she has been doing physical therapy at home for her right elbow and the surgical incision is healing well. She denies open sores or rashes. Denies oral thrush. Denies dental pain, blurred vision, or dizziness. She denies perirectal pain. The patient lives at home alone. Her daughter lives next door. She denies known sick contacts. States the last time she traveled outside the [facility] was in September when she went to [place] to visit family. States she has a dog, but denies any bites or scratches. Denies chronic infectious diseases. Denies tobacco or illicit drug use. Reports she uses alcohol socially. CC: Pura Carrasco MD Past Med Surg Social Fam HX - Past Medical History Attestation: Yes The following information was validated with the patient. Source: patient, old records reviewed, nursing notes reviewed Medical history: arthritis, diabetes, GERD, hypertension, other (Multiple myeloma) Additional medical history: sleep apnea Psychiatric history: anxiety, depression - Past Surgical History Surgical History: appendectomy, cholecystectomy, hysterectomy, knee replacement (x2), orthopedic, other (Left total elbow replacement 02/14/18) Additional surgical history: bilateral cataracts - Social History Smoking Status: Never smoker Smokeless Tobacco Status: No Alcohol use: rarely Drug use: none Occupational status: retired Current living situation: Home - Independent Activity Level: Independent ambulation Recent Out of Country Travel Within the Last 8 Weeks: No Exposure or Possible Exposure to Illness During Travel: No - Family History Sister Hx Family Cardiac Disorders: Yes ([place]) Hx Family Cancer: Yes (Colon) Grandfather Hx Family Cardiac Disorders: Yes (Stroke) Infectious Disease-CN:Meds Atorvastatin [Lipitor] 10 mg PO HS 02/14/18 [History] Cholecalciferol (D-3) [Vitamin D] 2,000 unit PO DAILY 02/14/18 [History] Citalopram Hydrobromide [Citalopram HBr] 20 mg PO BID 02/14/18 [History] Fesoterodine Fumarate [Toviaz] 4 mg PO DAILY 02/14/18 [History] Furosemide [Lasix] 20 mg PO DAILY PRN 02/14/18 [History] Metformin HCl 1,000 mg PO BID 02/14/18 [History] Pantoprazole Sodium [Protonix] 40 mg PO DAILY 02/14/18 [History] Verapamil [Isoptin] 120 mg PO BID 02/14/18 [History] Vit C/E/Zn/Coppr/Lutein/Zeaxan [Preservision Areds 2 Softgel] 1 cap PO DAILY 05/25 [History] Dexamethasone [Decadron] 5 tab PO QWEEK #60 tab 02/24/18 [Rx] Lenalidomide [Revlimid] 25 mg PO DAILY #14 capsule 02/24/18 [Rx] Ubidecarenone [Co Q10] 200 mg PO DAILY 02/24/18 [History] Ferrous Sulfate [Iron] 325 mg PO BID 03/08/18 [History] Acyclovir [Zovirax] 400 mg PO BID 03/09/18 [History] 3 Allergy/AdvReac Type Severity Reaction Status Date / Time Sulfa (Sulfonamide Allergy Hives Verified 03/08/18 13:27 Antibiotics) All systems: reviewed and no additional remarkable complaints except as stated Exam - Constitutional Vitals: Temp Pulse Resp BP Pulse Ox 100.0 F H 69 16 135/72 93 03/09/18 11:00 03/09/18 11:00 03/09/18 11:00 03/09/18 11:00 03/09/18 11:00 General appearance: cooperative, no acute distress, obese - Head Head exam: Present: atraumatic, normal inspection, normocephalic - Eye Eye exam: Present: EOMI, normal appearance, PERRL Pupils: Present: normal accommodation - ENT ENT exam: Present: mucous membranes moist - Neck Neck exam: Present: normal inspection. Absent: lymphadenopathy, meningismus - Respiratory Respiratory exam: Present: CTAB. Absent: rales, respiratory distress, rhonchi, wheezes - Cardiovascular Cardiovascular exam: Present: RRR, +S1, +S2 - GI/Abdominal GI/Abdominal exam: Present: distended (obese), normal bowel sounds, soft. Absent: tenderness - Extremities Exam Extremities exam: Present: joint swelling (Mild, left elbow), tenderness (Left elbow). Absent: full ROM (ROM of the left elbow mildly limited due to pain. ), pedal edema Additional comments: Surgical incision to the left posterior elbow is well-healed without redness, warmth, or drainage. Mild tenderness with palpation of the area. ROM mildly limited. - Back Exam Back exam: Present: normal inspection, paraspinal tenderness (Right lower back) . Absent: vertebral tenderness - Neurological Exam Neurological exam: Present: alert, oriented X3, no focal deficits - Psychiatric Psychiatric exam: Present: normal affect, normal mood - Skin Skin exam: Present: dry, intact, normal color, warm Infectious Disease CN: Results - Labs CBC & Chem 7: 03/09/18 02:59 03/09/18 02:59 - VTE Documentation of Mechanical Device: Intermittent pneumatic compression device Consult Discharge Plan - Plan Referrals: Karthikeyan Quinones MD [Primary Care Provider] - 03/17/18 1:15 pm - Attending Attestation I examined this patient and my medical decision-making was reviewed with the Resident Physician. I agree with the documented findings, disposition and treatment plan as described except to the extent set forth below. This is an addendum to original report dictated by Shandra Zimmerman CNP. Please refer to Shandra's note for details. Patient is a 64-year-old woman who recently had a pathological fracture of the left distal humerus and underwent a total elbow arthroplasty on 02/14/[address] Luna. Pathology from surgery reveals plasma cell myeloma and fracture. Patient was referred to hematology/oncology and they were planning to start chemotherapy on her. Patient has not received any chemotherapy. On Tuesday patient was seen in the cancer Center where she had Tdap and pneumovax in the right shoulder. On Tuesday patient tells me that she was sitting in her chair where she started having cold chills and rigors. Patient called her daughter who lives about [address] and she checked her temperature she was febrile to the patient was brought into the emergency department for evaluation. Patient states that she has intermittent headaches, she also states that she has intermittent back pain but the rest of the review of system was totally fine. Patient denied any headache, denied any visual changes, denied any sore throat, denied any earache, denies any toothache, denied any chest pain shortness of breath cough or sputum production, denied any GI symptoms including nausea vomiting diarrhea or constipation. Patient did say she had one vomiting episode on the day of admission yesterday but she attributes that to being nervous. Patient denies any urinary symptoms. Patient denies any rash. On physical exam patient surgical wound on the left elbow appears intact with no erythema no drainage no cellulitis no fluctuance. She also has good movement of the elbow with no signs of passive movement pain. On the right shoulder though there is swelling erythema and very warm to touch. I got a sepsis Pen and I circled the erythema. Patient is also very tender there. Clearly the cellulitis. She also states that she is having pain with moving her right shoulder since she had the shot. Assessment and plan: Sepsis Multiple myeloma Cellulitis right shoulder Recent pathological fracture of the left humerus requiring total elbow arthroplasty Allergies to Bactrim gives her a rash Recommendations: At this point patient really has no positive review of system and the only thing on physical exam the I found was the cellulitis on the right shoulder. Patient has had a chest x-ray. She also had one vomiting episode. Patient did have LFTs which were within normal limits did. I think the sepsis is due to cellulitis of the right shoulder but other sources also need to be ruled out. Patient has been started on broad-spectrum antibiotics including vancomycin and Zosyn. I would get a CT of the right upper extremity to rule out myositis or septic arthritis. I will await blood cultures to finalize. In the meantime if patient's fever and chills does not improve significantly and the fact that she had a vomiting episode I might consider getting CT abdomen and pelvis but for now we can just wait and see. Monitor labs and for drug toxicity. Will continue to follow closely. Discussed with the nursing staff and showed her where the cellulitis was.
[2018-03-09] MEDS: 0.9 % Sodium Chloride 1,000 ML IVC SCH (14:33)
[2018-03-09] MEDS ORDERED: Isovue-370 500 ML INFUS..BTL IV ONE (15:43)
--- NOTE | 2018-03-09 16:09 | Internal Med Progress Note ---
Hospitalist Progress Note - Encounter Date of Encounter: 03/09/18 Time of Encounter: 09:00 - Subjective Interval History: Patient was seen and examined at bedside She denies any pain currently. She reports that her fevers and chills have subsided since she has been in the hospital. She is currently eating her breakfast, denies any nausea vomiting or diarrhea She denies any shortness of breath, cough, chest pain, palpitations She denies any calf tenderness, loss of function in her left arm, no recent trauma to the surgical site, denies skin color change or loss of sensation to the Arm - Exam Vitals: Temp Pulse Resp BP Pulse Ox 99.7 F H 79 18 136/80 93 03/09/18 14:45 03/09/18 14:45 03/09/18 14:45 03/09/18 14:45 03/09/18 14:45 Exam: General: Patient is alert, oriented, no acute distress, morbidly obese Head: atraumatic, normocephalic, Eye: normal appearance, PERRL, no scleral icterus, no conjunctival injection ENT: mucous membranes moist, normal external ear exam Neck: normal inspection, trachea midline, full ROM, no carotid bruits Chest: normal inspection, symmetric chest rise Respiratory: Good respiratory effort. Bilateral breath sounds are clear without wheezing, crackles, or rhonchi. Cardiovascular: Regular rate and rhythm. s1 and s2 No clicks, rubs, gallops, or murmors. Abdomen: Bowel sounds present normoactive x-4 quadrants. Abdomen is soft, nondistended. no Epigastric tenderness. No guarding or rebound. No organomegaly noted, obese musculoskeletal: Spontaneously moving all extremities. no edema, no calf tenderness, left elbow with posterior stitches which are intact, mild swelling of faizan elbow no warmth associated with the elbow has almost full ROM in faizan elbow. pronation and supination intact. right shoulder with area of redness and warmth Skin: warm, dry, intact. pulse intact and 2 Neuro: Alert and oriented x4. Sensation light touch intact. Cranial nerves 2- 12 is intact. Not aphasic, gait is steady, rapid hand movements intact, finger- to-nose intact, Psych: Patient's affect is normal - Assessment and Plan (1) Sepsis Current Visit: No Status: Acute Assessment and Plan: Patient has fever and leukocytosis Questionable secondary to septic left elbow versus cellulitis of right shoulder Blood cultures are drawn and pending Orthopedics on board Infectious disease on board Currently on vancomycin and Zosyn We will send ESR and CRP We will follow CT of the right upper extremity patient did have Dtap and Pneumococcal vaccines on 03/07/18. (2) Cellulitis of right upper extremity Current Visit: Yes Status: Acute Assessment and Plan: Right shoulder cellulitis CT of right shoulder with contrast is ordered and will follow ESR CRP ordered Infectious disease on board Blood cultures and process will follow (3) Multiple myeloma Current Visit: No Status: Chronic Assessment and Plan: Diagnosed February 2018. Recent pathological fracture of the left humerus requiring total elbow arthroplasty Follows with [facility]. Scheduled for bone biopsy 03/13/18 with Valcade/Revlimid to start 03/14/18. Hem/Onc was consulted will follow up recommendations (4) Diabetes type 2, controlled Current Visit: No Status: Chronic Assessment and Plan: will continue SS A1c in the Am strict glucose control (5) DVT prophylaxis Current Visit: No Status: Acute Assessment and Plan: Heparin SQ. (6) Morbidly obese Current Visit: Yes Status: Acute Assessment and Plan: BMI is 42.3 nutrition consult DVT Prophylaxis: Heparin subcutaneous - Time Spent with Patient Total time spent is greater than 50% in coordination of care (as documented) at patient's floor/unit and/or counseling patient: Internal Medicine: Result - Labs CBC & Chem 7: 03/09/18 02:59 03/09/18 02:59 Labs: Short CBC 03/09/18 Range/Units 02:59 WBC 12.3 H (4.3-11.1) K/mcL Hgb 8.4 L (11.5-15.4) g/dL Hct 26.6 L (35.3-44.9) % Plt Count 244 (140-400) K/mcL Neutrophils # 7.6 (1.6-8.9) K/mcL BMP 03/09/18 02:59 Sodium 132 L Potassium 3.4 L Chloride 102 Carbon Dioxide 23 BUN 10 Creatinine 0.68 Glucose 135 H Calcium 8.5 L Liver Function 03/09/18 Range/Units 02:59 Total Bilirubin 0.5 (0.3-1.0) mg/dL AST 15 (13-39) Units/L ALT 13 (7-52) Units/L Alkaline Phosphatase 78 (34-104) Units/L Albumin 3.4 L (3.5-5.7) g/dL - ABG Interpretation ABG results: PT/INR, D-dimer PT 15.4 Seconds (9.4-12.1) H 03/09/18 02:59 - Impressions Impressions Elbow CT 03/08/18 20:31 IMPRESSION: 1. Status post left elbow arthroplasty. Defect in the medial aspect of the distal humerus is thought to most likely be postoperative in nature although infection is not entirely excluded. 2. No joint effusion. 3. No fracture or other acute osseous abnormality. 4. Nonspecific periarticular subcutaneous fat stranding. No drainable fluid collection identified. D/ / John Pérez MD / John Pérez MD Interpreting Provider: John Pérez MD - VTE Documentation of Mechanical Device: Intermittent pneumatic compression device Consult Discharge Plan - Plan Referrals: Karthikeyan Quinones MD [Primary Care Provider] - 03/17/18 1:15 pm (1) Sepsis Qualifiers: Sepsis type: sepsis due to unspecified organism Qualified Code(s): A41.9 - Sepsis, unspecified organism (3) Multiple myeloma Qualifiers: Multiple myeloma remission status: not in remission Qualified Code(s): C90.00 - Multiple myeloma not having achieved remission (4) Diabetes type 2, controlled Qualifiers: Diabetes mellitus exterminator termite insulin use: without exterminator termite use Diabetes mellitus complication status: without complication Qualified Code(s): E11.9 - Type 2 diabetes mellitus without complications
[2018-03-09] MEDS ORDERED: Famotidine 20 MG TABLET PO ONE (17:34)
[2018-03-10 00:44] LABS: Hematocrit 24.9 % (35.3-44.9); Mean Corpuscular HGB Conc 32.1 g/dL (31.6-35.5); Mean Corpuscular Hemoglobin 31.9 pg (28.0-33.3); Mean Corpuscular Volume 99.2 fL (83.0-100.0); Mean Platelet Volume 9.9 fL (9.4-12.4); Platelet Count 190 K/mcL (140-400); Red Blood Count 2.51 M/mcL (3.82-4.97); Red Cell Distribution Width 17.9 % (11.5-14.5)
[2018-03-10 01:01] LABS: BUN/Creatinine Ratio 14 (6-26); Blood Urea Nitrogen 8 mg/dL (8-23); Calcium 7.8 mg/dL (8.6-10.3); Carbon Dioxide 21 mEq/L (23-29); Chloride 102 mEq/L (98-107); Glucose 158 mg/dL (70-105); Osmolality,Calculated 268 (280-300); Potassium 3.6 mEq/L (3.5-5.1); Sodium 128 mEq/L (136-145); eGFR For Non-African Americans > 60 (> 60)
[2018-03-10 01:18] LABS: Basophils # 0.3 K/mcL (0.0-0.2); Eosinophils # 0.3 K/mcL (0.0-0.6); Lymphocytes # 3.1 K/mcL (0.6-4.6); Monocytes # 1.3 K/mcL (0.0-1.3); Neutrophils # 7.9 K/mcL (1.6-8.9); Platelet Estimate Normal (Normal)
--- NOTE | 2018-03-10 02:21 | Electrocardiograph Report ---
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
[2018-03-10] MEDS: *HR* Heparin 5,000 UNIT/ML VIAL SQ SCH ×2 (05:49→16:58)
[2018-03-10] MEDS: 0.9 % Sodium Chloride 1,000 ML IVC SCH ×2 (07:10→23:40)
[2018-03-10 07:35] LABS: Estimated Average Glucose 120 mg/dl; Hemoglobin A1C 5.8 %
--- NOTE | 2018-03-10 07:40 | Orthopedics Progress Note ---
Date of Encounter: 03/10/18 Time of Encounter: 07:37 Subjective Interval history: S: Subjective complaints of fever have improved. No feelings of illness. Cellulitis noted to the right shoulder from a recent vaccination, likely the cause of the fevers, has improved. O: Afebrile on the vital signs are stable Left elbow benign; incision has healed. No redness or concern for infection. Neurovascularly intact Right deltoid region with mild cellulitis which appears to be dissipated No concern for underlying joint involvement of the right shoulder A: Cellulitis the right deltoid region No concern for infection to the left elbow P: Continue antibiotics per the primary team and ID Fevers are improving No active extension to the left elbow for significant pushing, pulling, lifting with the left upper extremity. Objective Vital signs: Vital Signs Temp Pulse Resp BP Pulse Ox 03/10/18 05:29 98.3 F 85 14 138/70 91 03/09/18 19:06 99.2 F 77 15 127/80 95 03/09/18 14:45 99.7 F H 79 18 136/80 93 03/09/18 11:00 100.0 F H 69 16 135/72 93 03/09/18 08:51 98.3 F 145/79 Intake and Output 03/09/18 03/09/18 03/10/18 15:59 23:59 07:59 Intake Total 1584 / 1584 273 / 273 1327 / 1327 Output Total 550 / 550 400 / 400 300 / 300 Balance 1034 / 1034 -127 / -127 1027 / 1027 Intake: IV Fluids 954 / 954 273 / 273 827 / 827 0.9 % Sodium Chloride 1,000 ML 173 / 173 827 / 827 @ 60 mls/hr IVC .[id number] DAISY Rx #:[id number] KCl 20 mEq in 0.9% Sodium 500 / 500 Chloride 20 meq In 1,000 ml @ 100 mls/hr IVC .Q10H DAISY Rx#: [id number] Magnesium Sulfate 2 GM In 0.9 % 104 / 104 Sodium Chloride 100 ML @ 104 mls/hr IVPB ONCE ONE Rx#: [id number] Zosyn 3.375 GM In 0.9 % Sodium 100 / 100 100 / 100 Chloride (Mini-Bag +) 100 ML @ 25 mls/hr IVPB Q8HR DAISY Rx#: [id number] Vancocin 1,500 MG In 0.9 % 250 / 250 Sodium Chloride 250 ML @ 166.67 mls/hr IVPB Q12H DAISY Rx#: [id number] Oral 630 / 630 0 / 0 500 / 500 Output: Urine 550 / 550 400 / 400 300 / 300 Other: Meal Lunch Percent of Meal Consumed 25% # Voids 1 2 Blood Glucose* 168 167 - Labs CBC & BMP: 03/10/18 00:24 03/10/18 00:24 Labs: Abnormal lab results WBC 12.8 K/mcL (4.3-11.1) H 03/10/18 00:24 RBC 2.51 M/mcL (3.82-4.97) L 03/10/18 00:24 Hgb 8.0 g/dL (11.5-15.4) L 03/10/18 00:24 Hct 24.9 % (35.3-44.9) L 03/10/18 00:24 RDW 17.9 % (11.5-14.5) H 03/10/18 00:24 Band Neutrophils % 10.0 % (0-4) H 03/10/18 00:24 Basophils # 0.3 K/mcL (0.0-0.2) H 03/10/18 00:24 Nucleated RBCs/100 WBC 0.2 /100 WBC (0) H 03/08/18 14:26 ESR 52 mm/hr (0-15) H 03/10/18 00:24 PT 15.4 Seconds (9.4-12.1) H 03/09/18 02:59 APTT 23.0 Seconds (26.0-36.0) L 03/09/18 02:59 Sodium 128 mEq/L (136-145) L 03/10/18 00:24 Carbon Dioxide 21 mEq/L (23-29) L 03/10/18 00:24 Creatinine 0.56 mg/dL (0.60-1.20) L 03/10/18 00:24 Glucose 158 mg/dL (70-105) H 03/10/18 00:24 POC Glucose 167 mg/dL (70-99) H 03/09/18 20:06 Hemoglobin A1c 5.8 % (-5.6) H 03/10/18 00:24 Calculated Osmolality 268 (280-300) L 03/10/18 00:24 Calcium 7.8 mg/dL (8.6-10.3) L 03/10/18 00:24 Magnesium 1.4 mg/dL (1.6-2.6) L 03/09/18 02:59 C-Reactive Protein 186 mg/L (Less than 10) H 03/10/18 00:24 Albumin 3.4 g/dL (3.5-5.7) L 03/09/18 02:59 Globulin 5.4 g/dL (2.4-3.5) H 03/09/18 02:59 Albumin/Globulin Ratio 0.6 (1.1-2.2) L 03/09/18 02:59 - VTE Documentation of Mechanical Device: Intermittent pneumatic compression device Consult Discharge Plan - Plan Referrals: Karthikeyan Quinones MD [Primary Care Provider] - 03/17/18 1:15 pm
[2018-03-10] MEDS: Insulin LISPRO 300 UNITS/3 ML VIAL SQ SCH ×3 (07:58→16:54)
[2018-03-10] MEDS: Cholecalciferol (D-3) 1,000 UNIT TABLET PO SCH (08:18)
[2018-03-10] MEDS: Multivit/Ca/Min/Fe/FA 1 TAB TABLET PO SCH (08:18)
[2018-03-10] MEDS: Piperacillin/Tazobactam 3.375 GM in 0.9 % Sodium Chloride Mini Bag 100 ML IVPB SCH ×2 (08:18→16:58)
[2018-03-10] MEDS: Acyclovir 200 MG CAPSULE PO SCH ×2 (08:18→20:32)
--- NOTE | 2018-03-10 11:22 | Infectious Disease Progress No ---
Date of Encounter: 03/10/18 Time of Encounter: 11:19 - Assessment and Plan (1) Sepsis Current Visit: No Status: Acute The patient had two SIRS criteria. Likely secondary to RUE cellulitis. Fever curve is improving. WBC remains elevated today, but did receive PO steroids yesterday. Blood cultures drawn 03/08/18 are NGTD x 2 sets. Qualifiers: Sepsis type: sepsis due to unspecified organism Qualified Code(s): A41.9 - Sepsis, unspecified organism (2) Cellulitis Current Visit: Yes Status: Acute Location: RUE. Etiology unclear, but the patient did have Dtap and Pneumococcal vaccines on . Non-purulent. Causative organism unclear. ESR 52, CRP 186. CT of the right upper extremity showed findings consistent with cellulitis. Continue Vancomycin IV. Pharmacy to dose. Goal trough ~15. disContinue Zosyn 3.375 grams IV Q8H. Start Rocephin 1 g IV every 24 hours Duration of treatment depends on the clinical picture. Monitor renal function and for drug toxicity and dose-adjust antibiotics. Qualifiers: Site of cellulitis: extremity Site of cellulitis of extremity: upper extremity Laterality: right Qualified Code(s): L03.113 - Cellulitis of right upper limb (3) Anemia Current Visit: No Status: Chronic Hgb stable at around 8. Continue to trend. Further workup and management per the primary team. Qualifiers: Anemia type: unspecified type Qualified Code(s): D64.9 - Anemia, unspecified (4) History of arthroplasty Current Visit: No Status: Acute X-ray and CT of the LUE negative for acute infectious process. (5) History of multiple myeloma Current Visit: No Status: Acute Diagnosed February 2018. Follows with [facility]. Scheduled for bone biopsy 03/13/18 with Valcade/Revlimid to start 03/14/18. Recommend consult to Hem/Onc. (6) Hypertension Current Visit: No Status: Chronic Qualifiers: Hypertension type: unspecified Qualified Code(s): I10 - Essential (primary ) hypertension (7) Diabetes type 2, controlled Current Visit: No Status: Chronic Qualifiers: Diabetes mellitus retirement insulin use: without retirement use Diabetes mellitus complication status: without complication Qualified Code(s): E11.9 - Type 2 diabetes mellitus without complications - Subjective Interval history: Patient seen and examined. No acute in night. Patient states overall she feels about the same. Complains of pain to the upper aspect of the right upper extremity. Denies pain in the elbow or with range of motion. Reports feeling hot currently, but denies any known fevers or chills or rigors. Denies chest pain or shortness of breath. She denies cough. She denies nausea or vomiting or diarrhea. Her last bowel movement was Tuesday, but she states she feels like she needs to have a bowel movement and cannot. She denies urinary complaints. She denies oral thrush or new skin lesions. Infect Dis PN-Objective Data - Labs CBC & Chem 7: 03/10/18 00:24 03/10/18 00:24 Labs: Laboratory Results - last 24 hr 03/09/18 03/09/18 03/10/18 16:11 20:06 00:24 WBC RBC Hgb Hct MCV MCH MCHC RDW Plt Count MPV Seg Neutrophils % Band Neutrophils % Lymphocytes % Monocytes % Eosinophils % Basophils % Neutrophils # Lymphocytes # Monocytes # Eosinophils # Basophils # Platelet Estimate ESR 52 H Sodium Potassium Chloride Carbon Dioxide BUN Creatinine Est GFR ( Amer) Est GFR (Non-Af Amer) BUN/Creatinine Ratio Glucose POC Glucose 135 H 167 H Est Mean Plasma Glucose Hemoglobin A1c Calculated Osmolality Calcium C-Reactive Protein Vancomycin Trough 03/10/18 03/10/18 03/10/18 00:24 00:24 00:24 WBC 12.8 H RBC 2.51 L Hgb 8.0 L Hct 24.9 L MCV 99.2 MCH 31.9 MCHC 32.1 RDW 17.9 H Plt Count 190 MPV 9.9 Seg Neutrophils % 52.0 Band Neutrophils % 10.0 H Lymphocytes % 24.0 Monocytes % 10.0 Eosinophils % 2.0 Basophils % 2.0 Neutrophils # 7.9 Lymphocytes # 3.1 Monocytes # 1.3 Eosinophils # 0.3 Basophils # 0.3 H Platelet Estimate Normal ESR Sodium 128 L Potassium 3.6 Chloride 102 Carbon Dioxide 21 L BUN 8 Creatinine 0.56 L Est GFR ( Amer) > 60 Est GFR (Non-Af Amer) > 60 BUN/Creatinine Ratio 14 Glucose 158 H POC Glucose Est Mean Plasma Glucose Hemoglobin A1c Calculated Osmolality 268 L Calcium 7.8 L C-Reactive Protein 186 H Vancomycin Trough 03/10/18 03/10/1803/10/18 00:24 07:33 09:15 WBC RBC Hgb Hct MCV MCH MCHC RDW Plt Count MPV Seg Neutrophils % Band Neutrophils % Lymphocytes % Monocytes % Eosinophils % Basophils % Neutrophils # Lymphocytes # Monocytes # Eosinophils # Basophils # Platelet Estimate ESR Sodium Potassium Chloride Carbon Dioxide BUN Creatinine Est GFR ( Amer) Est GFR (Non-Af Amer) BUN/Creatinine Ratio Glucose POC Glucose 120 H Est Mean Plasma Glucose 120 Hemoglobin A1c 5.8 H Calculated Osmolality Calcium C-Reactive Protein Vancomycin Trough 10 - Impressions Impressions Upper Extremity CT 03/09/18 17:00 IMPRESSION: 1. Subcutaneous fat stranding and skin thickening in the right upper extremity compatible with cellulitis. No drainable fluid collection. 2. No acute osseous abnormality. D/ / John Pérez MD / John Pérez MD Interpreting Provider: John Pérez MD Exam - Constitutional Vitals: Temp Pulse Resp BP Pulse Ox 98.7 F 84 18 148/79 95 03/10/18 07:33 03/10/18 07:33 03/10/18 07:33 03/10/18 07:33 03/10/18 07:33 General appearance: cooperative, no acute distress, obese - Head Head exam: Present: atraumatic, normal inspection, normocephalic - Eye Eye exam: Present: EOMI, normal appearance, PERRL Pupils: Present: normal accommodation - ENT ENT exam: Present: mucous membranes moist - Neck Neck exam: Present: normal inspection - Respiratory Respiratory exam: Present: CTAB. Absent: rales, respiratory distress, rhonchi, wheezes - Cardiovascular Cardiovascular exam: Present: RRR, +S1, +S2 - GI/Abdominal GI/Abdominal exam: Present: distended (obese), normal bowel sounds, soft. Absent: tenderness - Extremities Exam Extremities exam: Present: tenderness (Upper aspect right upper extremity). Absent: joint swelling, pedal edema Additional comments: Erythema noted to the right deltoid and bicep area. Tenderness noted with palpation. The area is warm to touch. No open lesion noted. Range of motion of the elbow is intact and within normal limits. LEft elbow surgical site remains well-healed without redness warmth, drainage, or pain. ROM limited due to recent post-op status. - Neurological Exam Neurological exam: Present: alert, oriented X3, no focal deficits - Psychiatric Psychiatric exam: Present: normal affect, normal mood - Skin Skin exam: Present: dry, intact, normal color, warm - VTE Documentation of Mechanical Device: Intermittent pneumatic compression device Consult Discharge Plan - Plan Referrals: Karthikeyan Quinones MD [Primary Care Provider] - 03/17/18 1:15 pm - Attending Attestation I examined this patient and my medical decision-making was reviewed with the Resident Physician. I agree with the documented findings, disposition and treatment plan as described except to the extent set forth below.
[2018-03-10] MEDS: Sennosides 8.6 MG TABLET PO PRN (12:22)
[2018-03-10] MEDS: traMADol 50 MG TABLET PO PRN ×2 (12:26→20:32)
--- NOTE | 2018-03-10 12:54 | Internal Med Progress Note ---
Hospitalist Progress Note - Encounter Date of Encounter: 03/10/18 Time of Encounter: 09:00 - Subjective Interval History: Patient was seen and examined at bedside reports that yesterday she did not think to mention her right upper extremity pain as she had recently received the pneumonia vaccination ad zoster vaccination so she had attributed the pain to the recent vaccination. as of yesterday she feels much better after receiving Abx. has no complaints currently. She is currently tolerating, denies any nausea vomiting or diarrhea She denies any shortness of breath, cough, chest pain, palpitations She denies any calf tenderness, loss of function in her left arm, no recent trauma to the surgical site, denies skin color change or loss of sensation to the Arm - Exam Vitals: Temp Pulse Resp BP Pulse Ox 98.9 F 63 17 162/82 94 03/10/18 12:00 03/10/18 12:00 03/10/18 12:00 03/10/18 12:00 03/10/18 12:00 Exam: General: Patient is alert, oriented, no acute distress, morbidly obese Head: atraumatic, normocephalic, Eye: normal appearance, PERRL, no scleral icterus, no conjunctival injection ENT: mucous membranes moist, normal external ear exam Neck: normal inspection, trachea midline, full ROM, no carotid bruits Chest: normal inspection, symmetric chest rise Respiratory: Good respiratory effort. Bilateral breath sounds are clear without wheezing, crackles, or rhonchi. Cardiovascular: Regular rate and rhythm. s1 and s2 No clicks, rubs, gallops, or murmors. Abdomen: Bowel sounds present normoactive x-4 quadrants. Abdomen is soft, nondistended. no Epigastric tenderness. No guarding or rebound. No organomegaly noted, obese musculoskeletal: Spontaneously moving all extremities. no edema, no calf tenderness, left elbow with posterior stitches which are intact, mild swelling of faizan elbow no warmth associated with the elbow has almost full ROM in faizan elbow. pronation and supination intact. right shoulder with area of redness and warmth Skin: warm, dry, intact. pulse intact and 2 Neuro: Alert and oriented x4. Sensation light touch intact. Cranial nerves 2- 12 is intact. Not aphasic, gait is steady, rapid hand movements intact, finger- to-nose intact, Psych: Patient's affect is normal - Assessment and Plan (1) Sepsis Current Visit: No Status: Acute Assessment and Plan: Patient had fever and leukocytosis- currently fever has resolved most likely secondary to cellulitis of faizan right shoulder Blood cultures are drawn - no growth prelim Orthopedics on board Infectious disease on board Currently on vancomycin and Zosyn has elevated CRP and ESR CT of RUE is positive for cellulitis patient did have Dtap and Pneumococcal vaccines on 03/07/18 in faizan right arm (2) Cellulitis of right upper extremity Current Visit: Yes Status: Acute Assessment and Plan: Right shoulder cellulitis CT of right shoulder with contrast is consistent with cellulitis ESR CRP elevated Infectious disease on board Blood cultures and process will follow management as per above (3) Multiple myeloma Current Visit: No Status: Chronic Assessment and Plan: Diagnosed February 2018. Recent pathological fracture of the left humerus requiring total elbow arthroplasty Follows with [facility]. Scheduled for bone biopsy 03/13/18 with Valcade/Revlimid to start 03/14/18. Hem/Onc was consulted will follow up recommendations (4) Diabetes type 2, controlled Current Visit: No Status: Chronic Assessment and Plan: will continue SS A1c is 5.8 strict glucose control (5) DVT prophylaxis Current Visit: No Status: Acute Assessment and Plan: Heparin SQ. (6) History of arthroplasty Current Visit: No Status: Acute Assessment and Plan: X-ray and CT of the LUE negative for acute infectious process. ID and ortho on board (7) Morbidly obese Current Visit: Yes Status: Acute Assessment and Plan: BMI is 42.3 nutrition consult DVT Prophylaxis: as per above - Time Spent with Patient Total time spent is greater than 50% in coordination of care (as documented) at patient's floor/unit and/or counseling patient: Plan of Care Discussed with: patient Internal Medicine: Result - Labs CBC & Chem 7: 03/10/18 00:24 03/10/18 00:24 Labs: Short CBC 03/10/18 Range/Units 00:24 WBC 12.8 H (4.3-11.1) K/mcL Hgb 8.0 L (11.5-15.4) g/dL Hct 24.9 L (35.3-44.9) % Plt Count 190 (140-400) K/mcL Neutrophils # 7.9 (1.6-8.9) K/mcL BMP 03/10/18 00:24 Sodium 128 L Potassium 3.6 Chloride 102 Carbon Dioxide 21 L BUN 8 Creatinine 0.56 L Glucose 158 H Calcium 7.8 L - ABG Interpretation ABG results: PT/INR, D-dimer PT 15.4 Seconds (9.4-12.1) H 03/09/18 02:59 - Impressions Impressions Upper Extremity CT 03/09/18 17:00 IMPRESSION: 1. Subcutaneous fat stranding and skin thickening in the right upper extremity compatible with cellulitis. No drainable fluid collection. 2. No acute osseous abnormality. D/ / John Pérez MD / John Pérez MD Interpreting Provider: John Pérez MD - VTE Documentation of Mechanical Device: Intermittent pneumatic compression device Consult Discharge Plan - Plan Referrals: Karthikeyan Quinones MD [Primary Care Provider] - 03/17/18 1:15 pm (1) Sepsis Qualifiers: Sepsis type: sepsis due to unspecified organism Qualified Code(s): A41.9 - Sepsis, unspecified organism (3) Multiple myeloma Qualifiers: Multiple myeloma remission status: not in remission Qualified Code(s): C90.00 - Multiple myeloma not having achieved remission (4) Diabetes type 2, controlled Qualifiers: Diabetes mellitus intermediate insulin use: without manager long term care use Diabetes mellitus complication status: without complication Qualified Code(s): E11.9 - Type 2 diabetes mellitus without complications
--- NOTE | 2018-03-10 15:29 | Event Note ---
Date of Encounter: 03/10/18 Time of Encounter: 15:20 Ms. Wayne is a newly diagnosed patient with Multiple Myeloma, planned for bone marrow biopsy on 03/13 followed by initiation of RVD on 03/14. She had multiple bone lesions including skull lesions by bone survey February 2018. 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 2.6 g IgG kappa on 02/15/2018. [place] light chain normal at 1.7 but ratio elevated at 5.3. We will likely plan to proceed with bone marrow biopsy on Tuesday03/13/18 as previously planned as long as patient is stable and cleared from an infectious standpoint. RVD treatment that was planned to start 03/14/18, however, will plan to be hold until her infection/sepsis improves. Plan as above discussed with patient at bedside. Will round Tuesday to assess clearance for bone marrow biopsy then plan for outpatient follow up, otherwise, appreciate continued management per infectious disease/primary team in patients care.
[2018-03-10] MEDS: Acetaminophen 325 MG TABLET PO PRN (20:33)
[2018-03-10] MEDS: cefTRIAXone 1,000 MG in 0.9 % Sodium Chloride Mini Bag 100 ML IVPB SCH (20:33)
[2018-03-11] MEDS: 0.9 % Sodium Chloride 1,000 ML IVC SCH ×2 (03:20→22:34)
[2018-03-11 04:16] LABS: Basophils % 0.1 %; Eosinophils # 0.2 K/mcL (0.0-0.6); Eosinophils % 1.8 %; Hematocrit 24.4 % (35.3-44.9); Hemoglobin 7.8 g/dL (11.5-15.4); Immature Granulocytes % 0.7 % (0-4); Lymphocytes # 3.3 K/mcL (0.6-4.6); Lymphocytes % 34.3 %; Mean Platelet Volume 10.3 fL (9.4-12.4); Monocytes # 0.6 K/mcL (0.0-1.3); Monocytes % 6.6 %; Neutrophils # 5.4 K/mcL (1.6-8.9); Platelet Count 177 K/mcL (140-400); Red Blood Count 2.44 M/mcL (3.82-4.97); Red Cell Distribution Width 17.6 % (11.5-14.5); Segmented Neutrophils % 56.5 %
[2018-03-11 04:32] LABS: BUN/Creatinine Ratio 10 (6-26); Blood Urea Nitrogen 5 mg/dL (8-23); Calcium 7.9 mg/dL (8.6-10.3); Carbon Dioxide 25 mEq/L (23-29); Chloride 107 mEq/L (98-107); Glucose 138 mg/dL (70-105); Osmolality,Calculated 281 (280-300); Potassium 3.4 mEq/L (3.5-5.1); Sodium 136 mEq/L (136-145); eGFR For Non-African Americans > 60 (> 60)
[2018-03-11] MEDS: *HR* Heparin 5,000 UNIT/ML VIAL SQ SCH ×2 (05:35→17:18)
[2018-03-11] MEDS: Insulin LISPRO 300 UNITS/3 ML VIAL SQ SCH ×3 (07:48→16:36)
[2018-03-11] MEDS: Multivit/Ca/Min/Fe/FA 1 TAB TABLET PO SCH (07:50)
[2018-03-11] MEDS: Acyclovir 200 MG CAPSULE PO SCH ×2 (07:51→20:45)
[2018-03-11] MEDS: Cholecalciferol (D-3) 1,000 UNIT TABLET PO SCH (07:51)
[2018-03-11] MEDS: traMADol 50 MG TABLET PO PRN ×2 (08:00→23:29)
--- NOTE | 2018-03-11 12:50 | Internal Med Progress Note ---
Hospitalist Progress Note - Encounter Date of Encounter: 03/11/18 Time of Encounter: 08:15 - Subjective Interval History: Patient was seen and examined at bedside reports that her symptoms have improved. she is complaining of constipation. denies blood or melena and has not moved her bowels in 3 days. as of yesterday she feels much better after receiving Abx. has no complaints currently. She is currently tolerating, denies any nausea vomiting or diarrhea She denies any shortness of breath, cough, chest pain, palpitations She denies any calf tenderness, loss of function in her left arm, no recent trauma to the surgical site, denies skin color change or loss of sensation to the Arm - Exam Vitals: Temp Pulse Resp BP Pulse Ox 98.4 F 74 18 162/88 95 03/11/18 10:55 03/11/18 10:55 03/11/18 10:55 03/11/18 10:55 03/11/18 10:55 Exam: General: Patient is alert, oriented, no acute distress, morbidly obese Head: atraumatic, normocephalic, Eye: normal appearance, PERRL, no scleral icterus, no conjunctival injection ENT: mucous membranes moist, normal external ear exam Neck: normal inspection, trachea midline, full ROM, no carotid bruits Chest: normal inspection, symmetric chest rise Respiratory: Good respiratory effort. Bilateral breath sounds are clear without wheezing, crackles, or rhonchi. Cardiovascular: Regular rate and rhythm. s1 and s2 No clicks, rubs, gallops, or murmors. Abdomen: Bowel sounds present normoactive x-4 quadrants. Abdomen is soft, nondistended. no Epigastric tenderness. No guarding or rebound. No organomegaly noted, obese musculoskeletal: Spontaneously moving all extremities. no edema, no calf tenderness, left elbow with posterior stitches which are intact, mild swelling of faizan elbow no warmth associated with the elbow has almost full ROM in faizan elbow. pronation and supination intact. right shoulder with area of redness and warmth Skin: warm, dry, intact. pulse intact and 2 Neuro: Alert and oriented x4. Sensation light touch intact. Cranial nerves 2- 12 is intact. Not aphasic, gait is steady, rapid hand movements intact, finger- to-nose intact, Psych: Patient's affect is normal - Assessment and Plan (1) Sepsis Current Visit: No Status: Acute Assessment and Plan: Patient had fever and leukocytosis- currently fever has resolved most likely secondary to cellulitis of faizan right shoulder Blood cultures are drawn - no growth prelim Orthopedics on board Infectious disease on board Currently on vancomycin and ceftriaxone has elevated CRP and ESR CT of RUE is positive for cellulitis patient did have Dtap and Pneumococcal vaccines on 03/07/18 in the right arm (2) Cellulitis of right upper extremity Current Visit: Yes Status: Acute Assessment and Plan: Right shoulder cellulitis CT of right shoulder with contrast is consistent with cellulitis ESR CRP elevated Infectious disease on board Blood cultures and process will follow management as per above (3) Acute on chronic anemia Current Visit: Yes Status: Acute Assessment and Plan: secondary to MM? macrocytic will send iron studies, guaiac, b12 type and cross baseline around 8. on admission was 8.9 trended down to 7.8 on 03/11 (4) Multiple myeloma Current Visit: No Status: Chronic Assessment and Plan: Diagnosed February 2018. Recent pathological fracture of the left humerus requiring total elbow arthroplasty Follows with [facility]. Scheduled for bone biopsy 03/13/18 with Valcade/Revlimid to start 03/14/18. Hem/Onc was consulted will follow up recommendations (5) Diabetes type 2, controlled Current Visit: No Status: Chronic Assessment and Plan: will continue SS A1c is 5.8 strict glucose control (6) History of arthroplasty Current Visit: No Status: Acute Assessment and Plan: X-ray and CT of the LUE negative for acute infectious process. ID and ortho on board (7) Morbidly obese Current Visit: Yes Status: Acute Assessment and Plan: BMI is 42.3 nutrition consult (8) Hypokalemia Current Visit: Yes Status: Acute Assessment and Plan: replaced via PO KCL 40 meq will follow bmp in AM (9) Hypomagnesemia Current Visit: Yes Status: Acute Assessment and Plan: will replace (10) DVT prophylaxis Current Visit: No Status: Acute Assessment and Plan: Heparin SQ. DVT Prophylaxis: as per above - Time Spent with Patient Total time spent is greater than 50% in coordination of care (as documented) at patient's floor/unit and/or counseling patient: Internal Medicine: Result - Labs CBC & Chem 7: 03/11/18 03:50 03/11/18 03:50 Labs: Short CBC 03/11/18 Range/Units 03:50 WBC 9.6 (4.3-11.1) K/mcL Hgb 7.8 L (11.5-15.4) g/dL Hct 24.4 L (35.3-44.9) % Plt Count 177 (140-400) K/mcL Neutrophils # 5.4 (1.6-8.9) K/mcL BMP 03/11/18 03:50 Sodium 136 Potassium 3.4 L Chloride 107 Carbon Dioxide 25 BUN 5 L Creatinine 0.50 L Glucose 138 H Calcium 7.9 L - ABG Interpretation ABG results: PT/INR, D-dimer PT 15.4 Seconds (9.4-12.1) H 03/09/18 02:59 - VTE Documentation of Mechanical Device: Intermittent pneumatic compression device Consult Discharge Plan - Plan Referrals: Karthikeyan Quinones MD [Primary Care Provider] - 03/17/18 1:15 pm (1) Sepsis Qualifiers: Sepsis type: sepsis due to unspecified organism Qualified Code(s): A41.9 - Sepsis, unspecified organism (4) Multiple myeloma Qualifiers: Multiple myeloma remission status: not in remission Qualified Code(s): C90.00 - Multiple myeloma not having achieved remission (5) Diabetes type 2, controlled 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
[2018-03-11] MEDS: Folic Acid 1 MG TABLET PO SCH (13:16)
[2018-03-11] MEDS: Sennosides 8.6 MG TABLET PO PRN (13:21)
[2018-03-11 14:32] LABS: % Iron Saturation 4 % (15-50); Iron 13 mcg/dL (50-170); Transferrin 234 mg/dL (203-362)
[2018-03-11] MEDS: Acetaminophen 325 MG TABLET PO PRN (16:37)
[2018-03-11] MEDS: cefTRIAXone 1,000 MG in 0.9 % Sodium Chloride Mini Bag 100 ML IVPB SCH (20:45)
[2018-03-12 03:26] LABS: Basophils % 0.2 %; Eosinophils # 0.2 K/mcL (0.0-0.6); Eosinophils % 2.1 %; Hematocrit 23.7 % (35.3-44.9); Hemoglobin 7.6 g/dL (11.5-15.4); Immature Granulocytes % 0.7 % (0-4); Lymphocytes # 4.1 K/mcL (0.6-4.6); Mean Corpuscular HGB Conc 32.1 g/dL (31.6-35.5); Mean Corpuscular Hemoglobin 31.3 pg (28.0-33.3); Mean Corpuscular Volume 97.5 fL (83.0-100.0); Mean Platelet Volume 10.2 fL (9.4-12.4); Monocytes # 0.7 K/mcL (0.0-1.3); Monocytes % 6.6 %; Neutrophils # 5.8 K/mcL (1.6-8.9); Nucleated Red Blood Cells 0.2 /100 WBC (0); Platelet Count 194 K/mcL (140-400); Red Blood Count 2.43 M/mcL (3.82-4.97); Red Cell Distribution Width 17.6 % (11.5-14.5); Segmented Neutrophils % 53.4 %
[2018-03-12 03:47] LABS: BUN/Creatinine Ratio 9 (6-26); Blood Urea Nitrogen 4 mg/dL (8-23); Calcium 8.2 mg/dL (8.6-10.3); Carbon Dioxide 26 mEq/L (23-29); Chloride 104 mEq/L (98-107); Glucose 137 mg/dL (70-105); Osmolality,Calculated 281 (280-300); Potassium 3.2 mEq/L (3.5-5.1); Sodium 136 mEq/L (136-145); eGFR For Non-African Americans > 60 (> 60)
[2018-03-12] MEDS: *HR* Heparin 5,000 UNIT/ML VIAL SQ SCH ×2 (05:10→17:34)
[2018-03-12] MEDS: Insulin LISPRO 300 UNITS/3 ML VIAL SQ SCH ×3 (07:30→16:35)
[2018-03-12] MEDS: Folic Acid 1 MG TABLET PO SCH (08:02)
[2018-03-12] MEDS: Multivit/Ca/Min/Fe/FA 1 TAB TABLET PO SCH (08:05)
[2018-03-12] MEDS: Acyclovir 200 MG CAPSULE PO SCH ×2 (08:06→21:27)
[2018-03-12] MEDS: Cholecalciferol (D-3) 1,000 UNIT TABLET PO SCH (08:06)
[2018-03-12] MEDS: Acetaminophen 325 MG TABLET PO PRN (09:43)
--- NOTE | 2018-03-12 11:29 | Internal Med Progress Note ---
Hospitalist Progress Note - Encounter Date of Encounter: 03/12/18 Time of Encounter: 07:45 - Subjective Interval History: Patient was seen and examined at bedside reports that her symptoms have improved. she is complaining of constipation. denies blood or melena and has not moved her bowels in 3 days. as of yesterday she feels much better after receiving Abx. has no complaints currently. She is currently tolerating, denies any nausea vomiting or diarrhea She denies any shortness of breath, cough, chest pain, palpitations She denies any calf tenderness, loss of function in her left arm, no recent trauma to the surgical site, denies skin color change or loss of sensation to the Arm - Exam Vitals: Temp Pulse Resp BP Pulse Ox 98 F 66 16 153/71 95 03/12/18 07:25 03/12/18 07:25 03/12/18 07:25 03/12/18 07:25 03/12/18 07:25 Exam: General: Patient is alert, oriented, no acute distress, morbidly obese Head: atraumatic, normocephalic, Eye: normal appearance, PERRL, no scleral icterus, no conjunctival injection ENT: mucous membranes moist, normal external ear exam Neck: normal inspection, trachea midline, full ROM, no carotid bruits Chest: normal inspection, symmetric chest rise Respiratory: Good respiratory effort. Bilateral breath sounds are clear without wheezing, crackles, or rhonchi. Cardiovascular: Regular rate and rhythm. s1 and s2 No clicks, rubs, gallops, or murmors. Abdomen: Bowel sounds present normoactive x-4 quadrants. Abdomen is soft, nondistended. no Epigastric tenderness. No guarding or rebound. No organomegaly noted, obese musculoskeletal: Spontaneously moving all extremities. no edema, no calf tenderness, left elbow with posterior stitches which are intact, mild swelling of faizan elbow no warmth associated with the elbow has almost full ROM in faizan elbow. pronation and supination intact. right shoulder with area of redness and warmth ( has improved) Skin: warm, dry, intact. pulse intact and 2 Neuro: Alert and oriented x4. Sensation light touch intact. Cranial nerves 2- 12 is intact. Not aphasic, gait is steady, rapid hand movements intact, finger- to-nose intact, Psych: Patient's affect is normal - Assessment and Plan (1) Sepsis Current Visit: No Status: Resolved Assessment and Plan: Patient had fever and leukocytosis- currently fever has resolved most likely secondary to cellulitis of faizan right shoulder Blood cultures are drawn - no growth prelim Orthopedics on board Infectious disease on board Currently on vancomycin and ceftriaxone has elevated CRP and ESR CT of RUE is positive for cellulitis patient did have Dtap and Pneumococcal vaccines on 03/07/18 in the right arm (2) Cellulitis of right upper extremity Current Visit: Yes Status: Acute Assessment and Plan: Right shoulder cellulitis- improving CT of right shoulder with contrast is consistent with cellulitis ESR CRP elevated Infectious disease on board Blood cultures and process will follow management as per above (3) Acute on chronic anemia Current Visit: Yes Status: Acute Assessment and Plan: secondary to MM? macrocytic iron studies, guaiac, b12 type and cross baseline around 8. on admission was 8.9 trended down to 7.8 on 03/11 currently stable (4) Multiple myeloma Current Visit: No Status: Chronic Assessment and Plan: Diagnosed February 2018. Recent pathological fracture of the left humerus requiring total elbow arthroplasty Follows with [facility]. Scheduled for bone biopsy 03/13/18 with Valcade/Revlimid to start 03/14/18. Hem/Onc was consulted will follow up recommendations (5) Diabetes type 2, controlled Current Visit: No Status: Chronic Assessment and Plan: will continue SS A1c is 5.8 strict glucose control (6) History of arthroplasty Current Visit: No Status: Acute Assessment and Plan: X-ray and CT of the LUE negative for acute infectious process. ID and ortho on board (7) Morbidly obese Current Visit: Yes Status: Acute Assessment and Plan: BMI is 42.3 nutrition consult (8) Hypokalemia Current Visit: Yes Status: Acute Assessment and Plan: replaced via PO KCL 40 meq x 2 will follow bmp in AM (9) Hypomagnesemia Current Visit: Yes Status: Resolved Assessment and Plan: replaced (10) DVT prophylaxis Current Visit: No Status: Acute Assessment and Plan: Heparin SQ. - Time Spent with Patient Total time spent is greater than 50% in coordination of care (as documented) at patient's floor/unit and/or counseling patient: Internal Medicine: Result - Labs CBC & Chem 7: 03/12/18 03:11 03/12/18 03:11 Labs: Short CBC 03/12/18 Range/Units 03:11 WBC 10.9 (4.3-11.1) K/mcL Hgb 7.6 L (11.5-15.4) g/dL Hct 23.7 L (35.3-44.9) % Plt Count 194 (140-400) K/mcL Neutrophils # 5.8 (1.6-8.9) K/mcL BMP 03/12/18 03:11 Sodium 136 Potassium 3.2 L Chloride 104 Carbon Dioxide 26 BUN 4 L Creatinine 0.47 L Glucose 137 H Calcium 8.2 L - ABG Interpretation ABG results: PT/INR, D-dimer PT 15.4 Seconds (9.4-12.1) H 03/09/18 02:59 - VTE Documentation of Mechanical Device: Intermittent pneumatic compression device Consult Discharge Plan - Plan Referrals: Karthikeyan Quinones MD [Primary Care Provider] - 03/17/18 1:15 pm (1) Sepsis Qualifiers: Sepsis type: sepsis due to unspecified organism Qualified Code(s): A41.9 - Sepsis, unspecified organism (4) Multiple myeloma Qualifiers: Multiple myeloma remission status: not in remission Qualified Code(s): C90.00 - Multiple myeloma not having achieved remission (5) Diabetes type 2, controlled 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
[2018-03-12] MEDS: cefTRIAXone 1,000 MG in 0.9 % Sodium Chloride Mini Bag 100 ML IVPB SCH (19:40)
[2018-03-12] MEDS: traMADol 50 MG TABLET PO PRN (21:29)
[2018-03-13 05:04] LABS: Basophils % 0.4 %; Eosinophils # 0.3 K/mcL (0.0-0.6); Eosinophils % 2.7 %; Hemoglobin 8.5 g/dL (11.5-15.4); Immature Granulocytes % 0.5 % (0-4); Lymphocytes # 5.1 K/mcL (0.6-4.6); Lymphocytes % 51.4 %; Mean Corpuscular HGB Conc 31.5 g/dL (31.6-35.5); Mean Corpuscular Hemoglobin 30.5 pg (28.0-33.3); Mean Corpuscular Volume 96.8 fL (83.0-100.0); Mean Platelet Volume 10.4 fL (9.4-12.4); Monocytes # 0.7 K/mcL (0.0-1.3); Monocytes % 7.5 %; Neutrophils # 3.7 K/mcL (1.6-8.9); Nucleated Red Blood Cells 0.3 /100 WBC (0); Platelet Count 227 K/mcL (140-400); Red Blood Count 2.79 M/mcL (3.82-4.97); Red Cell Distribution Width 17.6 % (11.5-14.5); Segmented Neutrophils % 37.5 %
[2018-03-13 05:20] LABS: BUN/Creatinine Ratio 11 (6-26); Blood Urea Nitrogen 6 mg/dL (8-23); Calcium 8.8 mg/dL (8.6-10.3); Carbon Dioxide 26 mEq/L (23-29); Chloride 104 mEq/L (98-107); Glucose 135 mg/dL (70-105); Osmolality,Calculated 282 (280-300); Potassium 3.8 mEq/L (3.5-5.1); Sodium 136 mEq/L (136-145); eGFR For Non-African Americans > 60 (> 60)
[2018-03-13 05:32] LABS: Platelet Estimate Normal (Normal)
[2018-03-13] MEDS: *HR* Heparin 5,000 UNIT/ML VIAL SQ SCH (05:56)
[2018-03-13] MEDS: Acyclovir 200 MG CAPSULE PO SCH (08:19)
[2018-03-13] MEDS: Multivit/Ca/Min/Fe/FA 1 TAB TABLET PO SCH (08:20)
[2018-03-13] MEDS: Insulin LISPRO 300 UNITS/3 ML VIAL SQ SCH ×2 (08:20→12:22)
[2018-03-13] MEDS: Cholecalciferol (D-3) 1,000 UNIT TABLET PO SCH (08:20)
[2018-03-13] MEDS: Folic Acid 1 MG TABLET PO SCH (08:20)
--- NOTE | 2018-03-13 11:17 | Infectious Disease Progress No ---
Date of Encounter: 03/13/18 Time of Encounter: 11:15 - Assessment and Plan (1) Sepsis Status: Resolved The patient had two SIRS criteria. Likely secondary to RUE cellulitis. Resolved. WBC normalized. Tachycardia has resolved. Afebrile. Blood cultures drawn 03/08/18 are NGTD x 2 sets. Qualifiers: Sepsis type: sepsis due to unspecified organism Qualified Code(s): A41.9 - Sepsis, unspecified organism (2) Cellulitis Status: Acute Location: RUE. Etiology unclear, but the patient did have Dtap and Pneumococcal vaccines on . Non-purulent. Causative organism unclear. ESR 52, CRP 186. CT of the right upper extremity showed findings consistent with cellulitis. Continue Vancomycin IV. Pharmacy to dose. Goal trough ~15. Continue Rocephin 1 g IV every 24 hours. Duration of treatment depends on the clinical picture, but likely a total of 14 days. Treat through 03/21/18. Can transition to PO antibiotics when ready for discharge, likely doxycycline 100mg PO BID and Keflex 500mg PO QID. Monitor renal function and for drug toxicity and dose-adjust antibiotics. Qualifiers: Site of cellulitis: extremity Site of cellulitis of extremity: upper extremity Laterality: right Qualified Code(s): L03.113 - Cellulitis of right upper limb (3) Anemia Status: Chronic Hgb stable at around 8. Continue to trend. Further workup and management per the primary team. Qualifiers: Anemia type: unspecified type Qualified Code(s): D64.9 - Anemia, unspecified (4) History of arthroplasty Status: Acute X-ray and CT of the LUE negative for acute infectious process. (5) History of multiple myeloma Status: Acute Diagnosed February 2018. Follows with [facility]. Scheduled for bone biopsy 03/13/18 with Valcade/Revlimid to start 03/14/18. Bone biopsy planned for later today. Further chemo currently on hold until infection cleared/treated. Hem/Onc consulted and following. (6) Hypertension Status: Chronic Qualifiers: Hypertension type: unspecified Qualified Code(s): I10 - Essential (primary ) hypertension (7) Diabetes type 2, controlled Status: Chronic Qualifiers: Diabetes mellitus retirement insulin use: without retirement use Diabetes mellitus complication status: without complication Qualified Code(s): E11.9 - Type 2 diabetes mellitus without complications - Subjective Interval history: Patient seen and examined. Patient states she feels great and is ready to go home. Reports RUE pain has completely resolved. Denies fevers, chills, or rigors. Denies chest pain or shortness of breath or cough. Reports nausea with taking her pills on an empty stomach this morning. Denies vomiting, diarrhea, or constipation. She denies urinary complaints. She denies oral thrush or new skin lesions. Infect Dis PN-Objective Data - Labs CBC & Chem 7: 03/13/18 04:24 03/13/18 04:24 Labs: Laboratory Results - last 24 hr 03/12/18 03/12/18 03/12/18 11:44 15:50 20:40 WBC RBC Hgb Hct MCV MCH MCHC RDW Plt Count MPV Immature Gran % Seg Neutrophils % Lymphocytes % Monocytes % Eosinophils % Basophils % Neutrophils # Lymphocytes # Monocytes # Eosinophils # Basophils # Nucleated RBCs/100 WBC Platelet Estimate Sodium Potassium Chloride Carbon Dioxide BUN Creatinine Est GFR ( Amer) Est GFR (Non-Af Amer) BUN/Creatinine Ratio Glucose POC Glucose 145 H 109 H Calculated Osmolality Calcium Stool Occult Blood Negative Vancomycin Trough 03/13/18 03/13/18 03/13/18 00:08 04:24 04:24 WBC 9.9 RBC 2.79 L Hgb 8.5 L Hct 27.0 L MCV 96.8 MCH 30.5 MCHC 31.5 L RDW 17.6 H Plt Count 227 MPV 10.4 Immature Gran % 0.5 Seg Neutrophils % 37.5 Lymphocytes % 51.4 Monocytes % 7.5 Eosinophils % 2.7 Basophils % 0.4 Neutrophils # 3.7 Lymphocytes # 5.1 H Monocytes # 0.7 Eosinophils # 0.3 Basophils # 0.0 Nucleated RBCs/100 WBC 0.3 H Platelet Estimate Normal Sodium 136 Potassium 3.8 Chloride 104 Carbon Dioxide 26 BUN 6 L Creatinine 0.57 L Est GFR ( Amer) > 60 Est GFR (Non-Af Amer) > 60 BUN/Creatinine Ratio 11 Glucose 135 H POC Glucose 131 H Calculated Osmolality 282 Calcium 8.8 Stool Occult Blood Vancomycin Trough 03/13/18 03/13/18 06:05 07:51 WBC RBC Hgb Hct MCV MCH MCHC RDW Plt Count MPV Immature Gran % Seg Neutrophils % Lymphocytes % Monocytes % Eosinophils % Basophils % Neutrophils # Lymphocytes # Monocytes # Eosinophils # Basophils # Nucleated RBCs/100 WBC Platelet Estimate Sodium Potassium Chloride Carbon Dioxide BUN Creatinine Est GFR ( Amer) Est GFR (Non-Af Amer) BUN/Creatinine Ratio Glucose POC Glucose 129 H Calculated Osmolality Calcium Stool Occult Blood Vancomycin Trough 19 H Cultures: Serology 03/12/18 Range/Units 20:40 Stool Occult Blood Negative (Negative) Exam - Constitutional Vitals: Temp Pulse Resp BP Pulse Ox 98.0 F 63 16 148/76 95 03/13/18 11:00 03/13/18 11:00 03/13/18 11:00 03/13/18 11:00 03/13/18 11:00 General appearance: cooperative, no acute distress, obese - Head Head exam: Present: atraumatic, normal inspection, normocephalic - Eye Eye exam: Present: EOMI, normal appearance, PERRL Pupils: Present: normal accommodation - ENT ENT exam: Present: mucous membranes moist - Neck Neck exam: Present: normal inspection - Respiratory Respiratory exam: Present: CTAB. Absent: rales, respiratory distress, rhonchi, wheezes - Cardiovascular Cardiovascular exam: Present: RRR, +S1, +S2 - GI/Abdominal GI/Abdominal exam: Present: distended (obese), normal bowel sounds, soft. Absent: tenderness - Extremities Exam Extremities exam: Absent: joint swelling, pedal edema, tenderness Additional comments: Left elbow surgical incision well-healed without redness, warmth, or drainage. RUE erythema/warmth/tenderness resolved. - Neurological Exam Neurological exam: Present: alert, oriented X3, no focal deficits - Psychiatric Psychiatric exam: Present: normal affect, normal mood - Skin Skin exam: Present: dry, intact, normal color, warm - VTE Documentation of Mechanical Device: Intermittent pneumatic compression device Consult Discharge Plan - Plan Referrals: Karthikeyan Quinones MD [Primary Care Provider] - 03/20/18 1:15 pm Leonides Mitchell MD [Partnered Physician] - 03/17/18 1:00 pm Terell Diaz MD [Partnered Physician] - (Web request sent on 03/13.) Prescriptions: Cephalexin [Keflex] 500 mg PO BID 7 Days #14 capsule Doxycycline 100 mg PO BID 7 Days #14 capsule - Attending Attestation I examined this patient and my medical decision-making was reviewed with the Shandra Zimmerman CNP. I agree with the documented findings, disposition and treatment plan as described except to the extent set forth below.
[2018-03-13] MEDS ORDERED: 0.9 % Sodium Chloride 1,000 ML IVC SCH (11:30)
--- NOTE | 2018-03-13 13:10 | Pre-Sedation Evaluation ---
Pre-sedation evaluation - Pre-sedation checklist Date of procedure: 03/13/18 Procedure: bone marrow biopsy Recent Vitals: Last Vital Signs Temp 98.0 F 03/13/18 11:00 Pulse 63 03/13/18 11:00 Resp 16 03/13/18 11:00 BP 148/76 03/13/18 11:00 Pulse Ox 95 03/13/18 11:00 H&P (including ROS) documented in medical record: Yes Previous reaction to sedatives/anesthetics: No Dietary Status: NPO after Midnight Dentition: No loose teeth or bridges Possible difficult airway: Yes If Yes;: Morbid obesity, Enlarged neck circumference, short neck ASA Classification *see protocol: CLASS III-Severe systemic disease Plan of Care: Risks/benefits of procedure/sedation discussed w/ patient/family Cardiac Registry (Cardio Only) - Functional Capacity - Clincal Frailty Scale
[2018-03-13] MEDS ORDERED: 0.9 % Sodium Chloride 500 ML ONE (13:15)
[2018-03-13] MEDS ORDERED: *HR* Midazolam HCl 2 MG/2 ML VIAL ONE (13:19)
[2018-03-13] MEDS ORDERED: *HR* FentaNYL (PF) 100 MCG/2 ML VIAL ONE (13:19)
[2018-03-13] MEDS ORDERED: *HR* FentaNYL (PF) 100 MCG/2 ML VIAL IVP ONE (13:22)
[2018-03-13] MEDS ORDERED: *HR* Midazolam HCl 2 MG/2 ML VIAL IVP ONE (13:23)
[2018-03-13 13:37] VITALS: BP 172/120
--- NOTE | 2018-03-13 13:39 | IR Procedure Note ---
Date of procedure: 03/13/18 Consent Obtained: Verbal consent, Written consent Timeout: Correct patient and procedure verified, Correct site verified, Time out performed, Skin prep completed Local anesthetic: Lidocaine 1% Indications: multiple myeloma Procedure Performed: right iliac bone marrow biopsy Was there an senior sales assistant present: No Site/Technique: right iliac wing Results/Findings: 8 cc bone marrow aspirated, 11 G core Estimated blood loss (cc): 0 Complications: None; Tolerated procedure well Post Procedure Treatment Plan: back to floor Specimen: 8 cc marrow, 11 G core
--- NOTE | 2018-03-13 13:44 | Discharge Summary ---
- NOTES TO OUTPATIENT PROVIDER Notes to Outpatient Provider: with oncology for starting therapy. follow electrolytes Orders not resulted at time of discharge: Pending orders 03/13/18 CT biopsy/asp bone marrow [CT] Routine Date of Encounter: 03/13/18 Time of Encounter: 13:40 - Discharge Diagnosis (1) Sepsis Priority: Primary Status: Resolved Qualifiers: Sepsis type: sepsis due to unspecified organism Qualified Code(s): A41.9 - Sepsis, unspecified organism (2) Cellulitis of right upper extremity Priority: Secondary Status: Acute (3) Acute on chronic anemia Priority: Secondary Status: Acute (4) Multiple myeloma Priority: Secondary Status: Chronic Qualifiers: Multiple myeloma remission status: not in remission Qualified Code(s): C90.00 - Multiple myeloma not having achieved remission (5) Diabetes type 2, controlled Priority: Secondary Status: Chronic Qualifiers: Diabetes mellitus fdc insulin use: without termite inspector use Diabetes mellitus complication status: without complication Qualified Code(s): E11.9 - Type 2 diabetes mellitus without complications (6) History of arthroplasty Priority: Secondary Status: Acute (7) Morbidly obese Priority: Secondary Status: Acute (8) Hypokalemia Priority: Secondary Status: Acute (9) Hypomagnesemia Priority: Secondary Status: Resolved (10) DVT prophylaxis Priority: Secondary Status: Acute (11) Morbidly obese Priority: Secondary Status: Acute Hospital course: Ms. Wayne is a 72 year old female with a past medical history of hypertension, hyperlipidemia, diabetes, multiple myeloma, newly diagnosed, and status post left total elbow arthroplasty was presented to the hospital with cheif complaint of fever. The patient was mentioned the hospital March 08 for left elbow pain and multiple myeloma. the patient sustained a fall earlier this month and was complaining of some left elbow pain. She had a x-ray that showed a left distal humerus fracture and possible underlying lytic lesion. She was taken to the operating room on February [address] Mayfield and had a left total elbow arthroplasty. Pathology was positive for plasma cell myeloma and she was referred to [facility] for further workup. She saw Dr. Boles and was planning to start treatment on 03/14/18. The patient presented to the emergency department on 03/08/18 with complaints of fever and left elbow pain. Upon arrival, the patient was febrile with a temperature of 103.2. other than fever rest of vitals were stable. Urinalysis was negative. Blood cultures were obtained 2 sets are pending finalization ( prelim. negative after 5 days.) Chest x-ray was negative. CT of the left elbow was done ( results below). She was started empirically on vancomycin and Zosyn and admitted to the hospital for further evaluation. orthopedics were consulted along with ID. it was found that the patient recently had a Pneumovax in the right deltoid muscle and the area on examination was erythamatous, warm and tender to touch. as per ID recommendation CT of the right upper extremity was performed ( results below). she was continued on IV Abx with near resolution of her symptoms. hematology and oncology was consulted and she under went BM biopsy on 03/13/18 by IR. As per heme/onc "RVD treatment that was planned to start 03/14/18, however, will plan to be hold until her infection/sepsis improves." she was told to follow up with hematology and oncology for results of biopsy adn for initiation of her treatment. she remained Afebrile and hemodynamically stable for 72hrs. leukocytosis resolved and she was discharged on oral Abx for 7 days as per ID recommendations. CT of the right extremity: IMPRESSION: 1. Subcutaneous fat stranding and skin thickening in the right upper extremity compatible with cellulitis. No drainable fluid collection. 2. No acute osseous abnormality. CT of the left elbow: IMPRESSION: 1. Status post left elbow arthroplasty. Defect in the medial aspect of the distal humerus is thought to most likely be postoperative in nature although infection is not entirely excluded. 2. No joint effusion. 3. No fracture or other acute osseous abnormality. 4. Nonspecific periarticular subcutaneous fat stranding. No drainable fluid collection identified. Discharge discussed with: patient, nurse - Time Spent with Patient Total time spent providing and/or coordinating discharge services: Greater than 30 minutes (35) - Discharge Medications Prescriptions: Cephalexin [Keflex] 500 mg PO BID 7 Days #14 capsule Doxycycline 100 mg PO BID 7 Days #14 capsule Home Medications: Atorvastatin [Lipitor] 10 mg PO HS 02/14/18 [History] Cholecalciferol (D-3) [Vitamin D] 2,000 unit PO DAILY 02/14/18 [History] Citalopram Hydrobromide [Citalopram HBr] 20 mg PO BID 02/14/18 [History] Fesoterodine Fumarate [Toviaz] 4 mg PO DAILY 02/14/18 [History] Furosemide [Lasix] 20 mg PO DAILY PRN 02/14/18 [History] Metformin HCl 1,000 mg PO BID 02/14/18 [History] Pantoprazole Sodium [Protonix] 40 mg PO DAILY 02/14/18 [History] Verapamil [Isoptin] 120 mg PO BID 02/14/18 [History] Vit C/E/Zn/Coppr/Lutein/Zeaxan [Preservision Areds 2 Softgel] 1 cap PO DAILY 05/25 [History] Dexamethasone [Decadron] 5 tab PO QWEEK #60 tab 02/24/18 [Rx] Lenalidomide [Revlimid] 25 mg PO DAILY #14 capsule 02/24/18 [Rx] Ubidecarenone [Co Q10] 200 mg PO DAILY 02/24/18 [History] Ferrous Sulfate [Iron] 325 mg PO BID 03/08/18 [History] Acyclovir [Zovirax] 400 mg PO BID 03/09/18 [History] Cephalexin [Keflex] 500 mg PO BID 7 Days #14 capsule 03/13/18 [Rx] Doxycycline 100 mg PO BID 7 Days #14 capsule 03/13/18 [Rx] Allergies/Adverse Reactions: 3 Allergy/AdvReac Type Severity Reaction Status Date / Time Sulfa (Sulfonamide Allergy Hives Verified 03/08/18 13:27 Antibiotics) Date of admission: 03/08/18 20:15 Primary care physician: Karthikeyan Quinones MD Consults: 03/09/18 13:36 Consult to Infectious Diseases [CONS] Stat Consulting Provider: Infectious [facility] Reason for Consult: ?sewptic joint Call Completed: Yes 03/09/18 16:10 Consult to Oncology Hematology [CONS] Routine Consulting Provider: Collin Montenegro Reason for Consult: has MM on chemo to restart on 03/14 has fevers now s/p elbow surgery - orthopedics do not believe its from infection Call Completed: No 03/09/18 16:27 Consult to Nutrition [CONS] Routine Comment: Consulting Provider: NUTRITION Reason for Dietary Consult: PO Supplementation 03/11/18 07:21 Consult to Interventional Radiology [CONS] Routine Consulting Provider: Radiology Interventional [facility] Reason for Consult: Bone marrow bx and aspiration if cleared from infectious standpoint-originally scheduled as outpatient-will call Tuesday Call Completed: No - Constitutional Vitals: Temp Pulse Resp BP Pulse Ox 98.0 F 89 86 172/120 99 03/13/18 11:00 03/13/18 13:36 03/13/18 13:36 03/13/18 13:36 03/13/18 13:36 General appearance: Present: cooperative, A&O X 3, pleasant Exam: General: Patient is alert, oriented, no acute distress, morbidly obese Head: atraumatic, normocephalic, Eye: normal appearance, PERRL, no scleral icterus, no conjunctival injection ENT: mucous membranes moist, normal external ear exam Neck: normal inspection, trachea midline, full ROM, no carotid bruits Chest: normal inspection, symmetric chest rise Respiratory: Good respiratory effort. Bilateral breath sounds are clear without wheezing, crackles, or rhonchi. Cardiovascular: Regular rate and rhythm. s1 and s2 No clicks, rubs, gallops, or murmors. Abdomen: Bowel sounds present normoactive x-4 quadrants. Abdomen is soft, nondistended. no Epigastric tenderness. No guarding or rebound. No organomegaly noted, obese musculoskeletal: Spontaneously moving all extremities. no edema, no calf tenderness, left elbow with posterior stitches which are intact, mild swelling of faizan elbow no warmth associated with the elbow has almost full ROM in faizan elbow. pronation and supination intact. right shoulder with area of redness and warmth ( has improved) Skin: warm, dry, intact. pulse intact and 2 Neuro: Alert and oriented x4. Sensation light touch intact. Cranial nerves 2- 12 is intact. Not aphasic, gait is steady, rapid hand movements intact, finger- to-nose intact, Psych: Patient's affect is normal - Patient Status Disposition: Home, Self-Care Condition: Good - Discharge Instructions Follow Up With: Karthikeyan Quinones MD [Primary Care Provider] - 03/20/18 1:15 pm Leonides Mitchell MD [Partnered Physician] - 03/17/18 1:00 pm Terell Diaz MD [Partnered Physician] - (Web request sent on 03/13.) - Diet and Activity Activity: increase activity as tolerated Diet: advance to your usual diet - VTE Documentation of Mechanical Device: Intermittent pneumatic compression device
[2018-03-13] MEDS ORDERED: Aminoglycoside Consult 1 EACH MC ONE (15:29)
--- NOTE | 2018-03-13 16:01 | Physician Discharge Referral ---
Home Health/Hosp Referral Info Transfer to: Home Health Attending Provider: jacqueline hatch - Diagnosis (1) Sepsis Priority: Primary Status: Resolved (2) Cellulitis of right upper extremity Priority: Secondary Status: Acute (3) Acute on chronic anemia Priority: Secondary Status: Acute (4) Multiple myeloma Priority: Secondary Status: Chronic (5) Diabetes type 2, controlled Priority: Secondary Status: Chronic (6) History of arthroplasty Priority: Secondary Status: Acute (7) Morbidly obese Priority: Secondary Status: Acute (8) Hypokalemia Priority: Secondary Status: Acute (9) Hypomagnesemia Priority: Secondary Status: Resolved (10) DVT prophylaxis Priority: Secondary Status: Acute (11) Morbidly obese Priority: Secondary Status: Acute - Respiratory Orders Smoking Cessation: Smoking cessation has been advised. For more information, call the [employer] Tobacco Quit Line at 4-920-SJHF-NOW. - Activity Activity Orders: Ambulate - Services Needed Following services are medically necessary services: Home Health Aide - Transfer Medications Prescriptions: Cephalexin [Keflex] 500 mg PO BID 7 Days #14 capsule Doxycycline 100 mg PO BID 7 Days #14 capsule Home Medications: Atorvastatin [Lipitor] 10 mg PO HS 02/14/18 [History] Cholecalciferol (D-3) [Vitamin D] 2,000 unit PO DAILY 02/14/18 [History] Citalopram Hydrobromide [Citalopram HBr] 20 mg PO BID 02/14/18 [History] Fesoterodine Fumarate [Toviaz] 4 mg PO DAILY 02/14/18 [History] Furosemide [Lasix] 20 mg PO DAILY PRN 02/14/18 [History] Metformin HCl 1,000 mg PO BID 02/14/18 [History] Pantoprazole Sodium [Protonix] 40 mg PO DAILY 02/14/18 [History] Verapamil [Isoptin] 120 mg PO BID 02/14/18 [History] Vit C/E/Zn/Coppr/Lutein/Zeaxan [Preservision Areds 2 Softgel] 1 cap PO DAILY 05/25 [History] Dexamethasone [Decadron] 5 tab PO QWEEK #60 tab 02/24/18 [Rx] Lenalidomide [Revlimid] 25 mg PO DAILY #14 capsule 02/24/18 [Rx] Ubidecarenone [Co Q10] 200 mg PO DAILY 02/24/18 [History] Ferrous Sulfate [Iron] 325 mg PO BID 03/08/18 [History] Acyclovir [Zovirax] 400 mg PO BID 03/09/18 [History] Cephalexin [Keflex] 500 mg PO BID 7 Days #14 capsule 03/13/18 [Rx] Doxycycline 100 mg PO BID 7 Days #14 capsule 03/13/18 [Rx] Allergies/Adverse Reactions: 3 Allergy/AdvReac Type Severity Reaction Status Date / Time Sulfa (Sulfonamide Allergy Hives Verified 03/08/18 13:27 Antibiotics) Certification: Further, I certify that my clinical findings support that this patient is homebound (i.e. absences from home require considerable and taxing effort and are for medical reasons or protestant services or infrequently or short duration when for other reasons) because: Homebound Reason: Patient requires assistance of a person or device to safely leave home Attestation: My signature below is to certify that this patient is under my care and that I, or nurse practitioner, or a physician's workforce development assistant working with me, has a face-to -face encounter with this patient.
== END 2018-03-13 15:30 | disposition home health service (06) | DRG 872 ==
LOC: EMEROO 13:19 → 3ANU 13:19 → SUATTDRO 20:15
PROVIDERS: ADMIT Pediatrics; ATTEND Internal Medicine

== ENCOUNTER 2018-05-30 10:15 | Observation (INO) ==
[2018-05-30] MEDS ORDERED: 0.9 % Sodium Chloride 1,000 ML IVC ONE (10:29)
[2018-05-30 11:00] LABS: Basophils % 0.3 %; Eosinophils # 0.1 K/mcL (0.0-0.6); Eosinophils % 1.3 %; Hematocrit 39.2 % (35.3-44.9); Hemoglobin 12.9 g/dL (11.5-15.4); Immature Granulocytes % 1.3 % (0-4); Lymphocytes # 1.2 K/mcL (0.6-4.6); Lymphocytes % 14.9 %; Mean Corpuscular HGB Conc 32.9 g/dL (31.6-35.5); Mean Corpuscular Hemoglobin 29.3 pg (28.0-33.3); Mean Corpuscular Volume 88.9 fL (83.0-100.0); Mean Platelet Volume 12.2 fL (9.4-12.4); Monocytes # 0.3 K/mcL (0.0-1.3); Monocytes % 3.8 %; Nucleated Red Blood Cells 0.4 /100 WBC (0); Platelet Count 209 K/mcL (140-400); Red Blood Count 4.41 M/mcL (3.82-4.97); Red Cell Distribution Width 17.3 % (11.5-14.5); Segmented Neutrophils % 78.4 %
[2018-05-30 11:16] LABS: Alanine Aminotransferase 21 Units/L (7-52); Albumin/Globulin Ratio 1.3 (1.1-2.2); Alkaline Phosphatase 108 Units/L (34-104); Aspartate Amino Transferase 19 Units/L (13-39); BUN/Creatinine Ratio 17 (6-26); Bilirubin,Total 0.6 mg/dL (0.3-1.0); Blood Urea Nitrogen 15 mg/dL (8-23); Calcium 8.9 mg/dL (8.6-10.3); Carbon Dioxide 23 mEq/L (23-29); Chloride 98 mEq/L (98-107); Globulin 3.1 g/dL (2.4-3.5); Glucose 159 mg/dL (70-105); Osmolality,Calculated 288 (280-300); Potassium 3.5 mEq/L (3.5-5.1); Sodium 137 mEq/L (136-145); Total Protein 7.1 g/dL (6.4-8.9); eGFR For Non-African Americans > 60 (> 60)
--- NOTE | 2018-05-30 11:25 | Emergency Department Note ---
Disposition Clinical Impression: Nausea and vomiting Qualifiers: Vomiting type: bilious vomiting Qualified Code(s): R11.14 - Bilious vomiting Disposition: Admitted As Inpatient Condition: Good Referrals: Karthikeyan Quinones MD [Primary Care Provider] - Forms: ED Satisfaction Letter Time of Disposition: 16:06 General Adult HPI - General Chief complaint: ED Nausea/Vomiting/Diarrhea Stated complaint: N/V/D, Weakness, Cancer pt Time Seen by Provider: 05/30/18 10:29 Source: patient Mode of arrival: ambulatory Limitations: no limitations - History of Present Illness HPI Narrative: This is a 73-year-old female who is in her fourth cycle of chemotherapy for multiple myeloma who comes to emergency department reporting vomiting and diarrh ea with weakness began 4 hours prior to arrival. She also has a cough that just began today. Pain Scale: 0 - Related Data Home Medications Medication Instructions Recorded Confirmed Atorvastatin [Lipitor] 10 mg PO HS 02/14/18 05/30/18 Cholecalciferol (D-3) [Vitamin D] 2,000 unit PO DAILY 02/14/18 05/30/18 Citalopram Hydrobromide 20 mg PO BID 02/14/18 05/30/18 [Citalopram HBr] Fesoterodine Fumarate [Toviaz] 4 mg PO DAILY 02/14/18 05/30/18 Furosemide [Lasix] 20 mg PO DAILY PRN 02/14/18 05/30/18 Pantoprazole Sodium [Protonix] 40 mg PO DAILY 02/14/18 05/30/18 Verapamil [Isoptin] 120 mg PO BID 02/14/18 05/30/18 Vit C/E/Zn/Coppr/Lutein/Zeaxan 1 cap PO DAILY 02/14/18 05/30/18 [Preservision Areds 2 Softgel] Ubidecarenone [Co Q10] 200 mg PO DAILY 02/24/18 05/30/18 Ferrous Sulfate [Iron] 325 mg PO BID 03/08/18 05/30/18 Ascorbic Acid [Vitamin C] 250 mg PO DAILY 05/30/18 05/30/18 Dexamethasone [Decadron] 5 tab PO WE 05/30/18 05/30/18 Metformin HCl 1,000 mg PO BID 05/30/18 05/30/18 Potassium Chloride [K-Tab ER] 10 meq PO BID 05/30/18 05/30/18 Previous Rx's Medication Instructions Recorded Cyanocobalamin (Vitamin B-12) 1 tab PO DAILY #30 tablet 03/20/18 [Vitamin B12] Cyanocobalamin (B-12) [Vitamin B12] 1,000 mcg IM QMONTH #12 vial 03/24/18 Lenalidomide [Revlimid] 25 mg PO DAILY #14 capsule 05/12/18 Allergies Allergy/AdvReac Type Severity Reaction Status Date / Time Amoxicillin [From Augmentin] Allergy Diarrhea Verified 05/30/18 15:05 clavulanic acid Allergy Diarrhea Verified 05/30/18 15:05 [From Augmentin] Sulfa (Sulfonamide Allergy Hives Verified 05/30/18 15:05 Antibiotics) All systems ED: reviewed and negative except as stated. Constitutional: Reports: weakness Respiratory: Reports: cough Gastrointestinal: Reports: nausea, vomiting, diarrhea Past Medical History - Past Medical History Medical history: Reports: arthritis, cancer, diabetes, GERD, hypertension, other Surgical history: Reports: appendectomy, cholecystectomy, hysterectomy, knee replacement (x2), orthopedic, other (Left total elbow replacement 02/14/18) Psychiatric history: Reports: anxiety, depression - Social History Smoking Status: Never smoker Smokeless Tobacco Status: No Alcohol use: Reports: rarely Drug use: Reports: none Physical Exam - General Limitations: no limitations General appearance: alert, in distress (In mild distress from generalized weakness) - Head Head exam: atraumatic, normocephalic, normal inspection - Eye Eye exam: Present: normal appearance, PERRL, EOMI - Chest Chest inspection: Present: normal inspection, symmetric chest wall rise - Respiratory Respiratory exam: Present: normal lung sounds bilaterally - Cardiovascular Cardiovascular exam: Present: regular rate, normal rhythm, normal heart sounds - Abdominal Exam Abdominal exam: Present: soft, Non-Tender. Absent: tenderness, distention, guarding, rebound, rigidity - Extremities Exam Extremities exam: Present: normal inspection, full ROM. Absent: tenderness, pedal edema - Neurological Exam Neurological exam: Present: alert, oriented X3 - Psychiatric Psychiatric exam: Present: normal affect, normal mood - Skin Skin exam: Present: warm, dry, intact, normal color Course Course Narrative: This is a 73-year-old female with cough, nausea, vomiting, and diarrhea, most likely secondary to her chemotherapy. Vital Signs Temperature 98.1 F 05/30/18 10:18 Pulse Rate 87 05/30/18 10:18 Respiratory Rate 22 05/30/18 10:18 Blood Pressure 146/77 05/30/18 10:18 O2 Sat by Pulse Oximetry 97 05/30/18 10:18 Temperature 98.1 F 05/30/18 10:27 Pulse Rate 87 05/30/18 12:38 Respiratory Rate 20 05/30/18 12:38 Blood Pressure 140/78 05/30/18 12:38 O2 Sat by Pulse Oximetry 94 05/30/18 12:38 Oxygen Delivery Oxygen Delivery Room Air Medical Decision Making - MDM Narrative Medical decision making narrative: This is a 73-year-old female with persistent vomiting and diarrhea. I discussed her case with the on-call hospitalist, who accepted her for admission - Lab Data Lab results reviewed: Yes I reviewed the patient's lab results. Lab results narrative: CBC was unremarkable BMP was unremarkable LFT was unremarkable Result diagrams: 05/30/18 10:41 05/30/18 10:41 Lab Results 05/30/18 05/30/18 05/30/18 Range/Units 10:41 10:41 13:05 WBC 7.7 (4.3-11.1) K/mcL RBC 4.41 (3.82-4.97) M/mcL Hgb 12.9 D (11.5-15.4) g/dL Hct 39.2 (35.3-44.9) % MCV 88.9 (83.0-100.0) fL MCH 29.3 (28.0-33.3) pg MCHC 32.9 (31.6-35.5) g/dL RDW 17.3 H (11.5-14.5) % Plt Count 209 (140-400) K/mcL MPV 12.2 (9.4-12.4) fL Immature Gran % 1.3 (0-4) % Seg Neutrophils % 78.4 % Lymphocytes % 14.9 % Monocytes % 3.8 % Eosinophils % 1.3 % Basophils % 0.3 % Neutrophils # 6.0 (1.6-8.9) K/mcL Lymphocytes # 1.2 (0.6-4.6) K/mcL Monocytes # 0.3 (0.0-1.3) K/mcL Eosinophils # 0.1 (0.0-0.6) K/mcL Basophils # 0.0 (0.0-0.2) K/mcL Nucleated RBCs/100 WBC 0.4 H (0) /100 WBC Platelet Estimate Normal (Normal) Sodium 137 (136-145) mEq/L Potassium 3.5 (3.5-5.1) mEq/L Chloride 98 (98-107) mEq/L Carbon Dioxide 23 (23-29) mEq/L BUN 15 (8-23) mg/dL Creatinine 0.86 (0.60-1.20) mg/dL Est GFR ( Amer) > 60 (> 60) Est GFR (Non-Af Amer) > 60 (> 60) BUN/Creatinine Ratio 17 (6-26) Glucose 159 H (70-105) mg/dL Calculated Osmolality 288 (280-300) Calcium 8.9 (8.6-10.3) mg/dL Total Bilirubin 0.6 (0.3-1.0) mg/dL AST 19 (13-39) Units/L ALT 21 (7-52) Units/L Alkaline Phosphatase 108 H (34-104) Units/L Serum Total Protein 7.1 (6.4-8.9) g/dL Albumin 4.0 (3.5-5.7) g/dL Globulin 3.1 (2.4-3.5) g/dL Albumin/Globulin Ratio 1.3 (1.1-2.2) Urine Color Yellow (Yellow) Urine Clarity Cloudy A (Clear) Urine pH 8.0 (5.0-8.0) pH Units Ur Specific [place] 1.030 H (1.010-1.025) Urine Protein 100 H (Neg-Trace) mg/dL Urine Glucose (UA) Normal (Normal) mg/dL Urine Ketones Trace H (Negative) mg/dL Urine Blood Negative (Negative) Urine Nitrite Positive A (Negative) Urine Bilirubin Negative (Negative) Urine Urobilinogen Normal (Normal) mg/dL Ur Leukocyte Esterase Small H (Negative) Urine Microscopic WBC 50-100 H (0-3) per hpf Ur Squamous Epith Cells Many H (None-Few) per lpf Urine Bacteria Many H (None-Few) per hpf Hyaline Casts Few (None-Few) per lpf Ur Culture Indicated? NO. A (NO) - Radiology Data Radiology results reviewed: Yes I reviewed the patient's radiology results. Chest x-ray showed no acute process - EKG Data EKG #1 EKG attestation: Yes I reviewed and interpreted this EKG. EKG results narrative: ECG shows sinus rhythm, 83 beats, 1 PVC, normal intervals, normal axis, prolonged QT with QTC of 505, normal ST and T waves Critical Care Time Critical Care Time: No
[2018-05-30 11:37] LABS: Platelet Estimate Normal (Normal)
[2018-05-30] MEDS ORDERED: Ondansetron 4 MG/2 ML VIAL IVP ONE (12:28)
[2018-05-30 13:16] LABS: Bilirubin,Urine Negative (Negative); Blood,Urine Negative (Negative); Clarity,Urine Cloudy (Clear); Color,Urine Yellow (Yellow); Glucose,Urine (UA) Normal (Normal); Ketones,Urine Trace mg/dL (Negative); Leukocyte Esterase,Urine Small (Negative); Nitrite,Urine Positive (Negative); Protein,Urine 100 mg/dL (Neg-Trace); Urobilinogen,Urine Normal (Normal)
[2018-05-30 13:18] LABS: Bacteria,Urine Many per hpf (None-Few); Squamous Epithelial Cell,Urine Many per lpf (None-Few); WBC,Urine 50-100 per hpf (0-3)
[2018-05-30] MEDS ORDERED: Naloxone 0.4 MG/ML INJ IVP PRN (13:24)
[2018-05-30] MEDS ORDERED: traMADol 50 MG TABLET PO PRN (13:24)
[2018-05-30] MEDS ORDERED: *HR* Dextrose 50 % in Water (Syg) 50 ML SYRINGE IVP PRN (13:27)
[2018-05-30] MEDS ORDERED: Dextrose Gel 15 GM/37.5 ML TUBE PO PRN ×2 (13:27)
[2018-05-30] MEDS ORDERED: D5% in Water 1,000 ML IVC PRN (13:27)
[2018-05-30 13:36] LABS: Hyaline Casts,Urine Few per lpf (None-Few)
--- NOTE | 2018-05-30 13:56 | Internal Med History&Physical ---
Date of Encounter: 05/30/18 Time of Encounter: 14:08 Internal Medicine - H&P: HPI Chief complaint: nausea, vomiting and diarrhea Admitted From: Home Plans for Post Hospital Care: Home History of present illness: Ms. Wayne is a 73 year old female PMH of MM on chemotherapy, HTN, T2DM. Patient presented to the ED due to nausea, vomiting and diarrhea. Patient reports that today at around 6:30am she started feeling very nauseated and started having non-billious, non-bloody vomiting episodes associated with abdominal soreness and diarrhea, which she describes a large, watery stools. Patient reports that she has had so many episodes of vomiting that she cant not recall how many times she has thrown up. Denies fever/chills, or productive cough, but reports that she was treated with antibiotics about a week ago for a bronchitis. denies chest pain or shortness or breath as well as lightheadedness or dizziness. Patient denies urinary symptoms. Past Med Surg Social Fam HX - Past Medical History Medical history: arthritis, cancer, diabetes, GERD, hypertension, other Additional medical history: sleep apnea Psychiatric history: anxiety, depression - Past Surgical History Surgical History: appendectomy, cholecystectomy, hysterectomy, knee replacement (x2), orthopedic, other (Left total elbow replacement 02/14/18) Additional surgical history: bilateral cataracts. Elbow replacement. bilateral knee replaced - Social History Smoking Status: Never smoker Smokeless Tobacco Status: No Alcohol use: rarely Drug use: none - Family History Sister Hx Family Cardiac Disorders: Yes ([place]) Hx Family Cancer: Yes (Colon) Grandfather Hx Family Cardiac Disorders: Yes (Stroke) Internal Medicine - H&P: Meds Atorvastatin [Lipitor] 10 mg PO HS 02/14/18 [History] Cholecalciferol (D-3) [Vitamin D] 2,000 unit PO DAILY 02/14/18 [History] Citalopram Hydrobromide [Citalopram HBr] 20 mg PO BID 02/14/18 [History] Fesoterodine Fumarate [Toviaz] 4 mg PO DAILY 02/14/18 [History] Furosemide [Lasix] 20 mg PO DAILY PRN 02/14/18 [History] Pantoprazole Sodium [Protonix] 40 mg PO DAILY 02/14/18 [History] Verapamil [Isoptin] 120 mg PO BID 02/14/18 [History] Vit C/E/Zn/Coppr/Lutein/Zeaxan [Preservision Areds 2 Softgel] 1 cap PO DAILY 02/14/18 [History] Dexamethasone [Decadron] 5 tab PO QWEEK #60 tab 02/24/18 [Rx] Ubidecarenone [Co Q10] 200 mg PO DAILY 02/24/18 [History] Ferrous Sulfate [Iron] 325 mg PO BID 03/08/18 [History] Acyclovir [Zovirax] 400 mg PO BID 03/09/18 [History] Cyanocobalamin (Vitamin B-12) [Vitamin B12] 1 tab PO DAILY #30 tablet 03/20/18 [Rx] Cyanocobalamin (B-12) [Vitamin B12] 1,000 mcg IM QMONTH #12 vial 03/24/18 [Rx] Cyanocobalamin (Vitamin B-12) [Vitamin B12] 5,000 mcg PO QWEEK #4 tab.rapdis 05/02/18 [Rx] Lenalidomide [Revlimid] 25 mg PO DAILY #14 capsule 05/12/18 [Rx] Potassium Chloride [K-Tab ER] 1 tab PO AD #70 tablet.er 05/23/18 [Rx] Metformin HCl 1,000 mg PO BID 05/30/18 [History] Allergy/AdvReac Type Severity Reaction Status Date / Time Amoxicillin [From Augmentin] Allergy Diarrhea Verified 05/23/18 13:51 clavulanic acid Allergy Diarrhea Verified 05/23/18 13:51 [From Augmentin] Sulfa (Sulfonamide Allergy Hives Verified 05/23/18 13:51 Antibiotics) All Systems PM: A 10-system review of systems was performed and is negative for pertinent findings except as documented above in the HPI. - Constitutional Constitutional: weakness, no anorexia, no chills, no fever(s) - EENT Eyes: no pain - Cardiovascular Cardiovascular ROS IM: no chest pain, no dyspnea on exertion, no edema, no palpitations - Respiratory Respiratory: no cough, no dyspnea, no pain on inspiration, no chest congestion - Gastrointestinal Gastrointestinal: abdominal pain (soreness. ), diarrhea, loose stools, nausea, vomiting, no dysphagia, no hematemesis, no hematochezia, no melena - Genitourinary Genitourinary: no dysuria, no urinary incontinence, no urinary urgency - Musculoskeletal Musculoskeletal ROS IM: no back pain - Integumentary Integumentary IM: no rash - Neurological Neurological ROS: no abnormal speech, no headache(s), no vertigo - Psychiatric Psychiatric: no anxiety - Endocrine Endocrine IM: no polydipsia, no polyphagia, no polyuria - Allergic/Immunologic Additional comments: rest of the review of system negative. - Constitutional Vitals: Temp Pulse Resp BP Pulse Ox 98.1 F 87 20 140/78 94 05/30/18 10:27 05/30/18 12:38 05/30/18 12:38 05/30/18 12:38 05/30/18 12:38 Exam: General: Alert and oriented 4. In mild distress due to nausea and vomiting Skin:Normal color, no rash, no lesions. HEENT: Dry oral mucosa. EOM, pupils equal, round and reactive. Cardiovascular: RRR, Normal S1 & S2, no rubs, murmurs or gallops. Lungs: Clear to auscultation bilaterally no wheezes or crackles. Abdomen: Obese, Soft, non-tender, no rigidity. NABS in all 4 quadrants. Extremities: No deformity, no edema or tenderness, no joint swelling or clubbing. Neurological: Normal cognition and motor skills. Rest of the physical exam is non contributory Internal Med - H&P Results - Labs CBC & Chem 7: 05/30/18 10:41 05/30/18 10:41 Labs: Short CBC 05/30/18 Range/Units 10:41 WBC 7.7 (4.3-11.1) K/mcL Hgb 12.9 D (11.5-15.4) g/dL Hct 39.2 (35.3-44.9) % Plt Count 209 (140-400) K/mcL Neutrophils # 6.0 (1.6-8.9) K/mcL BMP 05/30/18 10:41 Sodium 137 Potassium 3.5 Chloride 98 Carbon Dioxide 23 BUN 15 Creatinine 0.86 Glucose 159 H Calcium 8.9 Liver Function 05/30/18 Range/Units 10:41 Total Bilirubin 0.6 (0.3-1.0) mg/dL AST 19 (13-39) Units/L ALT 21 (7-52) Units/L Alkaline Phosphatase 108 H (34-104) Units/L Albumin 4.0 (3.5-5.7) g/dL Urine 05/30/18 Range/Units 13:05 Urine Color Yellow (Yellow) Urine Clarity Cloudy A (Clear) Urine pH 8.0 (5.0-8.0) pH Units Ur Specific [place] 1.030 H (1.010-1.025) Urine Protein 100 H (Neg-Trace) mg/dL Urine Glucose (UA) Normal (Normal) mg/dL - Impressions ITS Impressions Chest X-Ray 05/30/18 10:30 IMPRESSION: No evidence of heart failure or any other acute cardiopulmonary abnormality. D/ / Misha Bello / Misha Bello Interpreting Provider: Misha Bello - Assessment and plan (1) Nausea and vomiting Current Visit: Yes Status: Acute Assessment and plan: Multifactorial possible secondary to chemotherapy, versus viral gastroenteritis Plan Nothing by mouth Ondansetron 4 mg IV every 6 hours as scheduled Started on D5/ns @75mls/hr PPI/IV daily as patient NPO Accu-checks Q6HRs Lispro medium dose sliding scale. Qualifiers: Vomiting type: bilious vomiting Qualified Code(s): R11.14 - Bilious vomiting (2) Diarrhea Current Visit: Yes Status: Acute Assessment and plan: Possible secondary to chemotherapy. Rule out C. difficile. Plan GI panel to rule out significant patient was recently on oral antibiotic. Qualifiers: Diarrhea type: unspecified type Qualified Code(s): R19.7 - Diarrhea, unspecified (3) UTI (urinary tract infection) Current Visit: Yes Status: Acute Assessment and plan: Asymptomatic cystitis. Plan Urine culture We will start patient on empiric antibiotic coverage, as patient is immunocompromised undergoing chemotherapy. Qualifiers: Urinary tract infection type: site unspecified Hematuria presence: without hematuria Qualified Code(s): N39.0 - Urinary tract infection, site not specified (4) Diabetes type 2, controlled Current Visit: No Status: Chronic Assessment and plan: Plan of care as per problem #1 Qualifiers: Diabetes mellitus correction insulin use: unspecified buttermaker insulin use status Diabetes mellitus complication status: with unspecified complications Qualified Code(s): E11.8 - Type 2 diabetes mellitus with unspecified complications (5) Multiple myeloma Current Visit: No Status: Chronic Assessment and plan: Patient undergoing chemotherapy. Has received her fourth round of chemotherapy. Consider Hem&Onc consult for continuity of care will continue Acyclovix 400mg/PO TID Qualifiers: Multiple myeloma remission status: unspecified Qualified Code(s): C90.00 - Multiple myeloma not having achieved remission (6) Hypertension Current Visit: Yes Status: Acute Assessment and plan: Hold home antihypertensive medication. will resume when patient is well hydrated Qualifiers: Hypertension type: unspecified Qualified Code(s): I10 - Essential (primary) hypertension (7) DVT prophylaxis Current Visit: Yes Status: Acute Assessment and plan: Heparin 5000 units SuB BID. - Time Spent With Patient Total time spent is greater than 50% in coordination of care (as documented) at patient's floor/unit and/or counseling patient: 25 - 35 minutes
[2018-05-30 17:55] LABS: Adenovirus F 40/41 PCR Not detected (Not detect); Astrovirus PCR Not detected (Not detect); C.difficile Toxin A/B by PCR Not detected (Not detect); Campylobacter by PCR Not detected (Not detect); Cryptosporidium by PCR Not detected (Not detect); Cyclospora cayetanensis PCR Not detected (Not detect); E. coli O157 by PCR Not detected (Not detect); Entamoeba histolytica PCR Not detected (Not detect); Enteroaggregative E.coli(EAEC) Not detected (Not detect); Enteropathogenic E.coli(EPEC) Not detected (Not detect); Enterotoxigenic E.coli (ETEC) Not detected (Not detect); Giardia lamblia PCR Not detected (Not detect); Norovirus GI/GII PCR Not detected (Not detect); Plesiomonas shigelloides PCR Not detected (Not detect); Rotavirus A PCR Not detected (Not detect); Salmonella PCR Not detected (Not detect); Sapovirus PCR Not detected (Not detect); Shig/EnteroinvasiveE coli EIEC Not detected (Not detect); Shigalike tox-prod E coli STEC Not detected (Not detect); Vibrio PCR Not detected (Not detect); Vibrio cholerae PCR Not detected (Not detect); Yersinia enterocolitica PCR Not detected (Not detect)
[2018-05-30] MEDS: Levofloxacin 500 MG/100 ML 500 MG/100 ML BAG IVPB SCH (18:25)
[2018-05-30] MEDS: Pantoprazole 40 MG VIAL IVP SCH (18:25)
[2018-05-30] MEDS: D5% in 0.45% NACL 1,000 ML IVC SCH (19:36)
[2018-05-30] MEDS: Insulin LISPRO 300 UNITS/3 ML VIAL SQ SCH ×2 (20:13→23:49)
[2018-05-30] MEDS: Ondansetron 4 MG/2 ML VIAL IVP SCH (20:45)
[2018-05-30] MEDS: Acyclovir 200 MG CAPSULE PO SCH (20:48)
[2018-05-30] MEDS: *HR* Heparin 5,000 UNIT/ML VIAL SQ SCH (20:49)
[2018-05-31] MEDS: Ondansetron 4 MG/2 ML VIAL IVP SCH ×4 (03:03→17:47)
[2018-05-31 04:45] LABS: Basophils % 0.2 %; Eosinophils # 0.3 K/mcL (0.0-0.6); Eosinophils % 5.4 %; Hematocrit 34.7 % (35.3-44.9); Immature Granulocytes % 0.9 % (0-4); Lymphocytes # 1.1 K/mcL (0.6-4.6); Lymphocytes % 24.5 %; Mean Corpuscular HGB Conc 31.7 g/dL (31.6-35.5); Mean Corpuscular Hemoglobin 28.9 pg (28.0-33.3); Mean Corpuscular Volume 91.1 fL (83.0-100.0); Mean Platelet Volume 13.2 fL (9.4-12.4); Monocytes # 0.5 K/mcL (0.0-1.3); Monocytes % 10.4 %; Neutrophils # 2.7 K/mcL (1.6-8.9); Nucleated Red Blood Cells 0.4 /100 WBC (0); Platelet Count 158 K/mcL (140-400); Red Blood Count 3.81 M/mcL (3.82-4.97); Red Cell Distribution Width 17.4 % (11.5-14.5); Segmented Neutrophils % 58.6 %
[2018-05-31 05:06] LABS: BUN/Creatinine Ratio 15 (6-26); Blood Urea Nitrogen 11 mg/dL (8-23); Calcium 7.5 mg/dL (8.6-10.3); Carbon Dioxide 27 mEq/L (23-29); Chloride 103 mEq/L (98-107); Glucose 133 mg/dL (70-105); Osmolality,Calculated 285 (280-300); Phosphorous 2.5 mg/dL (2.7-4.5); Potassium 3.4 mEq/L (3.5-5.1); Sodium 137 mEq/L (136-145); eGFR For Non-African Americans > 60 (> 60)
[2018-05-31] MEDS: Insulin LISPRO 300 UNITS/3 ML VIAL SQ SCH ×3 (05:56→18:23)
[2018-05-31] MEDS: *HR* Heparin 5,000 UNIT/ML VIAL SQ SCH ×2 (06:13→17:46)
[2018-05-31] MEDS: Pantoprazole 40 MG VIAL IVP SCH (08:59)
[2018-05-31] MEDS: D5% in 0.45% NACL 1,000 ML IVC SCH (09:00)
[2018-05-31] MEDS: Acyclovir 200 MG CAPSULE PO SCH ×2 (09:09→21:24)
--- NOTE | 2018-05-31 09:09 | Electrocardiograph Report ---
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
--- NOTE | 2018-05-31 11:17 | Internal Med Progress Note ---
Hospitalist Progress Note - Encounter Date of Encounter: 05/31/18 Time of Encounter: 11:15 - Exam Vitals: Temp Pulse Resp BP Pulse Ox 97.8 F 60 17 127/76 94 05/31/18 07:38 05/31/18 07:38 05/31/18 07:38 05/31/18 07:38 05/31/18 07:38 Exam: General: Alert and oriented 4. In mild distress due to nausea and vomiting Skin:Normal color, no rash, no lesions. HEENT: Dry oral mucosa. EOM, pupils equal, round and reactive. Cardiovascular: RRR, Normal S1 & S2, no rubs, murmurs or gallops. Lungs: Clear to auscultation bilaterally no wheezes or crackles. Abdomen: Obese, Soft, non-tender, no rigidity. NABS in all 4 quadrants. Extremities: No deformity, no edema or tenderness, no joint swelling or clubbing . Neurological: Normal cognition and motor skills. Rest of the physical exam is non contributory - Assessment and Plan (1) Diarrhea Current Visit: Yes Status: Acute Assessment and Plan: Likely secondary to chemotherapy. GI panel negative. Continue IV fluids and advance diet as tolerated. Will add stool bulking agent to medication regimen Oncology consulted and appreciate recs (2) Nausea and vomiting Current Visit: Yes Status: Acute Assessment and Plan: Multifactorial possible secondary to chemotherapy, versus viral gastroenteritis Supportive care. Advance diet as tolerated (3) Diabetes type 2, controlled Current Visit: No Status: Chronic Assessment and Plan: Plan of care as per problem #1 (4) Multiple myeloma Current Visit: No Status: Chronic Assessment and Plan: Patient undergoing chemotherapy. Has received her fourth round of chemotherapy. Consider Hem&Onc consult for continuity of care will continue Acyclovix 400mg/PO TID (5) UTI (urinary tract infection) Current Visit: Yes Status: Acute Assessment and Plan: Asymptomatic cystitis. Plan Urine culture We will start patient on empiric antibiotic coverage, as patient is immunocompromised undergoing chemotherapy. (6) Hypertension Current Visit: Yes Status: Acute Assessment and Plan: Hold home antihypertensive medication. will resume when patient is well hydrated (7) DVT prophylaxis Current Visit: Yes Status: Acute Assessment and Plan: Heparin 5000 units SuB BID. - Time Spent with Patient Total time spent is greater than 50% in coordination of care (as documented) at patient's floor/unit and/or counseling patient: Internal Medicine: Result - Labs CBC & Chem 7: 05/31/18 03:41 05/31/18 03:41 Labs: Short CBC 05/30/18 05/31/18 Range/Units 10:41 03:41 WBC 4.6 (4.3-11.1) K/mcL Hgb 11.0 L D (11.5-15.4) g/dL Hct 34.7 L (35.3-44.9) % Plt Count 158 (140-400) K/mcL Neutrophils # 6.0 2.7 (1.6-8.9) K/mcL BMP 05/30/18 05/31/18 10:41 03:41 Sodium 137 137 Potassium 3.5 3.4 L Chloride 98 103 Carbon Dioxide 23 27 BUN 15 11 Creatinine 0.86 0.71 Glucose 159 H 133 H Calcium 8.9 7.5 L Liver Function 05/30/18 Range/Units 10:41 Total Bilirubin 0.6 (0.3-1.0) mg/dL AST 19 (13-39) Units/L ALT 21 (7-52) Units/L Alkaline Phosphatase 108 H (34-104) Units/L Albumin 4.0 (3.5-5.7) g/dL Urine 05/30/18 Range/Units 13:05 Urine Color Yellow (Yellow) Urine Clarity Cloudy A (Clear) Urine pH 8.0 (5.0-8.0) pH Units Ur Specific [place] 1.030 H (1.010-1.025) Urine Protein 100 H (Neg-Trace) mg/dL Urine Glucose (UA) Normal (Normal) mg/dL - Impressions Impressions Chest X-Ray 05/30/18 10:30 IMPRESSION: No evidence of heart failure or any other acute cardiopulmonary abnormality. D/ / Misha Bello / Misha Bello Interpreting Provider: Misha Bello Abdomen/Pelvis CT 05/30/18 13:16 IMPRESSION: No acute abnormality in the abdomen or pelvis. D/ / Abdiel Crews MD / Abdiel Crews MD Interpreting Provider: Abdiel Crews MD Consult Discharge Plan - Plan Referrals: Karthikeyan Quinones MD [Primary Care Provider] - (1) Diarrhea Qualifiers: Diarrhea type: unspecified type Qualified Code(s): R19.7 - Diarrhea, unspecified (2) Nausea and vomiting Qualifiers: Vomiting type: bilious vomiting Qualified Code(s): R11.14 - Bilious vomiting (3) Diabetes type 2, controlled Qualifiers: Diabetes mellitus retirement insulin use: unspecified retirement insulin use status Diabetes mellitus complication status: with unspecified complications Qualified Code(s): E11.8 - Type 2 diabetes mellitus with unspecified complications (4) Multiple myeloma Qualifiers: Multiple myeloma remission status: unspecified Qualified Code(s): C90.00 - Multiple myeloma not having achieved remission (5) UTI (urinary tract infection) Qualifiers: Urinary tract infection type: site unspecified Hematuria presence: without hematuria Qualified Code(s): N39.0 - Urinary tract infection, site not specified (6) Hypertension Qualifiers: Hypertension type: unspecified Qualified Code(s): I10 - Essential (primary) hypertension
[2018-05-31] MEDS: Potassium Chloride Elixir 20 MEQ/15 ML UDC PO SCH ×2 (12:10→15:42)
[2018-05-31] MEDS ORDERED: Cholestyramine 4 GM POWD.PACK PO PRN (13:19)
--- NOTE | 2018-05-31 14:26 | Oncology Inp Consult Note ---
<Nohemy Myles L - Last Filed: 05/31/18 18:31> Date of Encounter: 05/31/18 Time of Encounter: 14:23 Assessment and Plan (1) Nausea and vomiting Status: Acute Assessment and plan: Acute with symptoms starting 6:30 AM yesterday morning No vomiting today, nausea and diarrhea continues GI panel stool culture with C. diff- negative CT abdomen/pelvis without acute findings Plan: Continue to hold Revlimd and treat supportively Suspect viral gastroenteritis although Revlimid can cause GI symptoms but not highly suspecting this is source given timeline and clinical presentation She has not had prior GI symptoms and currently on cycle #4 Plan to restart treatment once acute issues resolve She may have immodium PRN Qualifiers: Vomiting type: bilious vomiting Qualified Code(s): R11.14 - Bilious vomiting (2) Multiple myeloma Status: Chronic Assessment and plan: RVD (Revlimid, Velcade with weekly Dex) S/P cycle #4, Day #4 on 05/26/2018. Plan: Hold revlimid during her acute hospital stay Qualifiers: Multiple myeloma remission status: unspecified Qualified Code(s): C90.00 - Multiple myeloma not having achieved remission (3) UTI (urinary tract infection) Status: Acute Assessment and plan: Asymptomatic cystitis Urine culture-pending Treating with levaquin Qualifiers: Urinary tract infection type: site unspecified Hematuria presence: without hematuria Qualified Code(s): N39.0 - Urinary tract infection, site not specified - Data of Consult Patient: known to practice within the last 3 years Consult date: 05/31/18 Requesting Physician: Lana Faulkner Primary Care Provider: Karthikeyan Quinones MD - Consult Narrative Reason for consult: Multiple Myeloma History of present illness: Ms. Wayne is a 73 year old female known to our practice with multiple myeloma, initiated on RVD with Zometa, cycle #1 on 03/21/2018. She is not a candidate for autologous stem cell transplant given her advanced age and comorbid conditions. Overall, she has had good response to treatment with a decrease in her M-spike and light chain ratio. She is s/p cycle #4, Day #4 on 05/26/2018. She began having persistent nausea, vomiting and diarrhea about 6:30 am yesterday morning which led to her presentation. She denies melena, hematochezia or hematemesis. She denies fevers, chills, chest pain, SOB, abdominal pain (other than pain with vomiting). She has not vomited today but continues to have non-bloody, watery diarrhea. Past Med Surg Social Fam HX - Past Medical History Medical history: arthritis, cancer, diabetes, GERD, hypertension, other Additional medical history: sleep apnea Psychiatric history: anxiety, depression - Past Surgical History Surgical History: appendectomy, cholecystectomy, hysterectomy, knee replacement, orthopedic, other Additional surgical history: bilateral cataracts. Elbow replacement. bilateral knee replaced - Social History Smoking Status: Former smoker Smokeless Tobacco Status: No Alcohol use: rarely Drug use: none - Family History Grandfather Hx Family Cardiac Disorders: Yes (Stroke) Sister Hx Family Cardiac Disorders: Yes ([place]) Hx Family Cancer: Yes (Colon) Medications and Allergies RX: Atorvastatin [Lipitor] 10 mg PO HS 02/14/18 [History] RX: Cholecalciferol (D-3) [Vitamin D] 2,000 unit PO DAILY 02/14/18 [History] RX: Citalopram Hydrobromide [Citalopram HBr] 20 mg PO BID 02/14/18 [History] RX: Fesoterodine Fumarate [Toviaz] 4 mg PO DAILY 02/14/18 [History] RX: Furosemide [Lasix] 20 mg PO DAILY PRN 02/14/18 [History] RX: Pantoprazole Sodium [Protonix] 40 mg PO DAILY 02/14/18 [History] RX: Verapamil [Isoptin] 120 mg PO BID 02/14/18 [History] RX: Vit C/E/Zn/Coppr/Lutein/Zeaxan [Preservision Areds 2 Softgel] 1 cap PO DAILY 02/14/18 [History] RX: Ubidecarenone [Co Q10] 200 mg PO DAILY 02/24/18 [History] RX: Ferrous Sulfate [Iron] 325 mg PO BID 03/08/18 [History] Cyanocobalamin (Vitamin B-12) [Vitamin B12] 1 tab PO DAILY #30 tablet 03/20/18 [Rx] Cyanocobalamin (B-12) [Vitamin B12] 1,000 mcg IM QMONTH #12 vial 03/24/18 [Rx] RX: Lenalidomide [Revlimid] 25 mg PO DAILY #14 capsule 05/12/18 [Rx] Ascorbic Acid [Vitamin C] 250 mg PO DAILY 05/30/18 [History] Metformin HCl 1,000 mg PO BID 05/30/18 [History] RX: Dexamethasone [Decadron] 5 tab PO WE 05/30/18 [History] RX: Potassium Chloride [K-Tab ER] 10 meq PO BID 05/30/18 [History] Allergy/AdvReac Type Severity Reaction Status Date / Time Amoxicillin [From Augmentin] Allergy Diarrhea Verified 05/30/18 15:05 clavulanic acid Allergy Diarrhea Verified 05/30/18 15:05 [From Augmentin] Sulfa (Sulfonamide Allergy Hives Verified 05/30/18 15:05 Antibiotics) Constitutional: Present: anorexia, fatigue, malaise, weakness. Absent: chills, fever(s) Eyes: Absent: change in vision Nose, mouth and throat: Present: dry mouth. Absent: dysphagia, mouth lesions, odynophagia Cardiovascular: Absent: chest pain, irregular heart rhythm Respiratory: Absent: cough, dyspnea, hemoptysis, chest congestion Gastrointestinal: Present: as per HPI, cramping, diarrhea, nausea, vomiting. Absent: hematemesis, hematochezia, melena, odynophagia Genitourinary: Absent: dysuria Musculoskeletal: Present: muscle weakness Integumentary: Absent: rash, wounds Neurological: Absent: focal weakness, frequent falls Hematologic/Lymphatic: Present: as per HPI Oncology - Exam - Constitutional Vitals: Temp Pulse Resp BP Pulse Ox 97.8 F 60 17 127/76 94 05/31/18 07:38 05/31/18 07:38 05/31/18 07:38 05/31/18 07:38 05/31/18 07:38 General appearance: cooperative, no acute distress, no febrile - Head Head exam: Present: atraumatic - GI/Abdominal GI/Abdominal exam: Present: soft, tenderness. Absent: guarding, rebound - Extremities Exam Extremities exam: Absent: calf tenderness Additional comments: BLE edema - Neurological Exam Neurological exam: Present: alert, oriented X3, no focal deficits, strengths equal and symetr throughout - Psychiatric Psychiatric exam: Present: normal affect, normal mood - Skin Skin exam: Present: dry, intact, normal color, warm Oncology - Results Labs: 05/31/18 05/31/1818 05:42 03:41 03:41 WBC 4.6 RBC 3.81 L Hgb 11.0 L D Hct 34.7 L MCV 91.1 MCH 28.9 MCHC 31.7 RDW 17.4 H Plt Count 158 MPV 13.2 H Immature Gran % 0.9 Seg Neutrophils % 58.6 Lymphocytes % 24.5 Monocytes % 10.4 Eosinophils % 5.4 Basophils % 0.2 Neutrophils # 2.7 Lymphocytes # 1.1 Monocytes # 0.5 Eosinophils # 0.3 Basophils # 0.0 Nucleated RBCs/100 WBC 0.4 H Platelet Estimate Sodium 137 Potassium 3.4 L Chloride 103 Carbon Dioxide 27 BUN 11 Creatinine 0.71 Est GFR ( Amer) > 60 Est GFR (Non-Af Amer) > 60 BUN/Creatinine Ratio 15 Glucose 133 H POC Glucose 135 H Calculated Osmolality 285 Calcium 7.5 L Phosphorus 2.5 L Magnesium 2.0 Total Bilirubin AST ALT Alkaline Phosphatase Serum Total Protein Albumin Globulin Albumin/Globulin Ratio Urine Color Urine Clarity Urine pH Ur Specific [place] Urine Protein Urine Glucose (UA) Urine Ketones Urine Blood Urine Nitrite Urine Bilirubin Urine Urobilinogen Ur Leukocyte Esterase Urine Microscopic WBC Ur Squamous Epith Cells Urine Bacteria Hyaline Casts Ur Culture Indicated? Stl C. cayetanensis PCR Stool Rotavirus A PCR Stl Adenov F 40/41 PCR Stool Astrovirus (PCR) Stool Campylobacter PCR Stl C. diff Tox A/B PCR Stool Cryptosporidium PCR Stl Sh Tox Pr E STEC PCR Stool E coli O157 PCR Stl Enterotoxigenic E PCR Stool EPEC (PCR) Stool EAEC (PCR) Stl E. histolytica PCR Stool Giardia Lamblia PCR Stool Salmonella PCR Stool Sapovirus (PCR) Stl P. shigelloides PCR Stl Shigella/EIEC PCR St Y.enterocolitica PCR Stool Vibrio (PCR) Stl Vibrio cholerae PCR Stl Norovirus GI/GII PCR Stl GI Panel (PCR) Com 05/30/18 05/30/18 05/30/18 23:25 16:09 13:05 WBC RBC Hgb Hct MCV MCH MCHC RDW Plt Count MPV Immature Gran % Seg Neutrophils % Lymphocytes % Monocytes % Eosinophils % Basophils % Neutrophils # Lymphocytes # Monocytes # Eosinophils # Basophils # Nucleated RBCs/100 WBC Platelet Estimate Sodium Potassium Chloride Carbon Dioxide BUN Creatinine Est GFR ( Amer) Est GFR (Non-Af Amer) BUN/Creatinine Ratio Glucose POC Glucose 119 H Calculated Osmolality Calcium Phosphorus Magnesium Total Bilirubin AST ALT Alkaline Phosphatase Serum Total Protein Albumin Globulin Albumin/Globulin Ratio Urine Color Yellow Urine Clarity Cloudy A Urine pH 8.0 Ur Specific [place] 1.030 H Urine Protein 100 H Urine Glucose (UA) Normal Urine Ketones Trace H Urine Blood Negative Urine Nitrite Positive A Urine Bilirubin Negative Urine Urobilinogen Normal Ur Leukocyte Esterase Small H Urine Microscopic WBC 50-100 H Ur Squamous Epith Cells Many H Urine Bacteria Many H Hyaline Casts Few Ur Culture Indicated? NO. A Stl C. cayetanensis PCR Not detected Stool Rotavirus A PCR Not detected Stl Adenov F 40/41 PCR Not detected Stool Astrovirus (PCR) Not detected Stool Campylobacter PCR Not detected Stl C. diff Tox A/B PCR Not detected Stool Cryptosporidium PCR Not detected Stl Sh Tox Pr E STEC PCR Not detected Stool E coli O157 PCR Not detected Stl Enterotoxigenic E PCR Not detected Stool EPEC (PCR) Not detected Stool EAEC (PCR) Not detected Stl E. histolytica PCR Not detected Stool Giardia Lamblia PCR Not detected Stool Salmonella PCR Not detected Stool Sapovirus (PCR) Not detected Stl P. shigelloides PCR Not detected Stl Shigella/EIEC PCR Not detected St Y.enterocolitica PCR Not detected Stool Vibrio (PCR) Not detected Stl Vibrio cholerae PCR Not detected Stl Norovirus GI/GII PCR Not detected Stl GI Panel (PCR) Com See below 05/30/18 05/30/18 10:41 10:41 WBC 7.7 RBC 4.41 Hgb 12.9 D Hct 39.2 MCV 88.9 MCH 29.3 MCHC 32.9 RDW 17.3 H Plt Count 209 MPV 12.2 Immature Gran % 1.3 Seg Neutrophils % 78.4 Lymphocytes % 14.9 Monocytes % 3.8 Eosinophils % 1.3 Basophils % 0.3 Neutrophils # 6.0 Lymphocytes # 1.2 Monocytes # 0.3 Eosinophils # 0.1 Basophils # 0.0 Nucleated RBCs/100 WBC 0.4 H Platelet Estimate Normal Sodium 137 Potassium 3.5 Chloride 98 Carbon Dioxide 23 BUN 15 Creatinine 0.86 Est GFR ( Amer) > 60 Est GFR (Non-Af Amer) > 60 BUN/Creatinine Ratio 17 Glucose 159 H POC Glucose Calculated Osmolality 288 Calcium 8.9 Phosphorus Magnesium Total Bilirubin 0.6 AST 19 ALT 21 Alkaline Phosphatase 108 H Serum Total Protein 7.1 Albumin 4.0 Globulin 3.1 Albumin/Globulin Ratio 1.3 Urine Color Urine Clarity Urine pH Ur Specific [place] Urine Protein Urine Glucose (UA) Urine Ketones Urine Blood Urine Nitrite Urine Bilirubin Urine Urobilinogen Ur Leukocyte Esterase Urine Microscopic WBC Ur Squamous Epith Cells Urine Bacteria Hyaline Casts Ur Culture Indicated? Stl C. cayetanensis PCR Stool Rotavirus A PCR Stl Adenov F 40/ PCR Stool Astrovirus (PCR) Stool Campylobacter PCR Stl C. diff Tox A/B PCR Stool Cryptosporidium PCR Stl Sh Tox Pr E STEC PCR Stool E coli O157 PCR Stl Enterotoxigenic E PCR Stool EPEC (PCR) Stool EAEC (PCR) Stl E. histolytica PCR Stool Giardia Lamblia PCR Stool Salmonella PCR Stool Sapovirus (PCR) Stl P. shigelloides PCR Stl Shigella/EIEC PCR St Y.enterocolitica PCR Stool Vibrio (PCR) Stl Vibrio cholerae PCR Stl Norovirus GI/GII PCR Stl GI Panel (PCR) Com Consult Discharge Plan - Plan Referrals: Karthikeyan Quinones MD [Primary Care Provider] - <Jass Ludwig - Last Filed: 05/31/18 21:13> - Data of Consult Requesting Physician: Lana Faulkner Primary Care Provider: Karthikeyan Quinones MD - Consult Narrative History of present illness: Ms. Wayne is a 73 year old female Oncology - Exam - Constitutional Vitals: Temp Pulse Resp BP Pulse Ox 98.1 F 65 16 136/84 94 05/31/18 16:02 05/31/18 16:02 05/31/18 16:02 05/31/18 16:02 05/31/18 16:02 Oncology - Results Labs: 05/31/18 05/31/18 05/31/18 05:42 03:41 03:41 WBC 4.6 RBC 3.81 L Hgb 11.0 L D Hct 34.7 L MCV 91.1 MCH 28.9 MCHC 31.7 RDW 17.4 H Plt Count 158 MPV 13.2 H Immature Gran % 0.9 Seg Neutrophils % 58.6 Lymphocytes % 24.5 Monocytes % 10.4 Eosinophils % 5.4 Basophils % 0.2 Neutrophils # 2.7 Lymphocytes # 1.1 Monocytes # 0.5 Eosinophils # 0.3 Basophils # 0.0 Nucleated RBCs/100 WBC 0.4 H Platelet Estimate Sodium 137 Potassium 3.4 L Chloride 103 Carbon Dioxide 27 BUN 11 Creatinine 0.71 Est GFR ( Amer) > 60 Est GFR (Non-Af Amer) > 60 BUN/Creatinine Ratio 15 Glucose 133 H POC Glucose 135 H Calculated Osmolality 285 Calcium 7.5 L Phosphorus 2.5 L Magnesium 2.0 Total Bilirubin AST ALT Alkaline Phosphatase Serum Total Protein Albumin Globulin Albumin/Globulin Ratio Urine Color Urine Clarity Urine pH Ur Specific [place] Urine Protein Urine Glucose (UA) Urine Ketones Urine Blood Urine Nitrite Urine Bilirubin Urine Urobilinogen Ur Leukocyte Esterase Urine Microscopic WBC Ur Squamous Epith Cells Urine Bacteria Hyaline Casts Ur Culture Indicated? Stl C. cayetanensis PCR Stool Rotavirus A PCR Stl Adenov F PCR Stool Astrovirus (PCR) Stool Campylobacter PCR Stl C. diff Tox A/B PCR Stool Cryptosporidium PCR Stl Sh Tox Pr E STEC PCR Stool E coli O157 PCR Stl Enterotoxigenic E PCR Stool EPEC (PCR) Stool EAEC (PCR) Stl E. histolytica PCR Stool Giardia Lamblia PCR Stool Salmonella PCR Stool Sapovirus (PCR) Stl P. shigelloides PCR Stl Shigella/EIEC PCR St Y.enterocolitica PCR Stool Vibrio (PCR) Stl Vibrio cholerae PCR Stl Norovirus GI/GII PCR Stl GI Panel (PCR) Com 05/30/18 05/30/18 05/30/18 23:25 20:08 16:09 WBC RBC Hgb Hct MCV MCH MCHC RDW Plt Count MPV Immature Gran % Seg Neutrophils % Lymphocytes % Monocytes % Eosinophils % Basophils % Neutrophils # Lymphocytes # Monocytes # Eosinophils # Basophils # Nucleated RBCs/100 WBC Platelet Estimate Sodium Potassium Chloride Carbon Dioxide BUN Creatinine Est GFR ( Amer) Est GFR (Non-Af Amer) BUN/Creatinine Ratio Glucose POC Glucose 119 H 123 H Calculated Osmolality Calcium Phosphorus Magnesium Total Bilirubin AST ALT Alkaline Phosphatase Serum Total Protein Albumin Globulin Albumin/Globulin Ratio Urine Color Urine Clarity Urine pH Ur Specific [place] Urine Protein Urine Glucose (UA) Urine Ketones Urine Blood Urine Nitrite Urine Bilirubin Urine Urobilinogen Ur Leukocyte Esterase Urine Microscopic WBC Ur Squamous Epith Cells Urine Bacteria Hyaline Casts Ur Culture Indicated? Stl C. cayetanensis PCR Not detected Stool Rotavirus A PCR Not detected Stl Adenov F PCR Not detected Stool Astrovirus (PCR) Not detected Stool Campylobacter PCR Not detected Stl C. diff Tox A/B PCR Not detected Stool Cryptosporidium PCR Not detected Stl Sh Tox Pr E STEC PCR Not detected Stool E coli O157 PCR Not detected Stl Enterotoxigenic E PCR Not detected Stool EPEC (PCR) Not detected Stool EAEC (PCR) Not detected Stl E. histolytica PCR Not detected Stool Giardia Lamblia PCR Not detected Stool Salmonella PCR Not detected Stool Sapovirus (PCR) Not detected Stl P. shigelloides PCR Not detected Stl Shigella/EIEC PCR Not detected St Y.enterocolitica PCR Not detected Stool Vibrio (PCR) Not detected Stl Vibrio cholerae PCR Not detected Stl Norovirus GI/GII PCR Not detected Stl GI Panel (PCR) Com See below 05/30/18 05/30/18 05/30/18 13:05 10:41 10:41 WBC 7.7 RBC 4.41 Hgb 12.9 D Hct 39.2 MCV 88.9 MCH 29.3 MCHC 32.9 RDW 17.3 H Plt Count 209 MPV 12.2 Immature Gran % 1.3 Seg Neutrophils % 78.4 Lymphocytes % 14.9 Monocytes % 3.8 Eosinophils % 1.3 Basophils % 0.3 Neutrophils # 6.0 Lymphocytes # 1.2 Monocytes # 0.3 Eosinophils # 0.1 Basophils # 0.0 Nucleated RBCs/100 WBC 0.4 H Platelet Estimate Normal Sodium 137 Potassium 3.5 Chloride 98 Carbon Dioxide 23 BUN 15 Creatinine 0.86 Est GFR ( Amer) > 60 Est GFR (Non-Af Amer) > 60 BUN/Creatinine Ratio 17 Glucose 159 H POC Glucose Calculated Osmolality 288 Calcium 8.9 Phosphorus Magnesium Total Bilirubin 0.6 AST 19 ALT 21 Alkaline Phosphatase 108 H Serum Total Protein 7.1 Albumin 4.0 Globulin 3.1 Albumin/Globulin Ratio 1.3 Urine Color Yellow Urine Clarity Cloudy A Urine pH 8.0 Ur Specific [place] 1.030 H Urine Protein 100 H Urine Glucose (UA) Normal Urine Ketones Trace H Urine Blood Negative Urine Nitrite Positive A Urine Bilirubin Negative Urine Urobilinogen Normal Ur Leukocyte Esterase Small H Urine Microscopic WBC 50-100 H Ur Squamous Epith Cells Many H Urine Bacteria Many H Hyaline Casts Few Ur Culture Indicated? NO. A Stl C. cayetanensis PCR Stool Rotavirus A PCR Stl Adenov F PCR Stool Astrovirus (PCR) Stool Campylobacter PCR Stl C. diff Tox A/B PCR Stool Cryptosporidium PCR Stl Sh Tox Pr E STEC PCR Stool E coli O157 PCR Stl Enterotoxigenic E PCR Stool EPEC (PCR) Stool EAEC (PCR) Stl E. histolytica PCR Stool Giardia Lamblia PCR Stool Salmonella PCR Stool Sapovirus (PCR) Stl P. shigelloides PCR Stl Shigella/EIEC PCR St Y.enterocolitica PCR Stool Vibrio (PCR) Stl Vibrio cholerae PCR Stl Norovirus GI/GII PCR Stl GI Panel (PCR) Com - Attending Attestation I have seen and examined Ms. Wayne and agree with Ms. Myles's assessment. Ms. Wayne has multiple myeloma and is currently receiving cycle #4 RVD. She has had a marked response with decrease in M-spike. She has been admitted with what appears to be a viral gastroenteritis. N/V have resolved. Diarrhea persists, but has decreased in frequency. Imodium recommended as infectious evaluation negative. Afebrile. Would continue to hold revlimid. She may restart this at discharge. Continue supportive measures. We will continue to follow. Inpatient Charges Provider: Dr. Melita Ludwig Consult - Inpatient Medicare Only: [id number]
[2018-05-31] MEDS: Levofloxacin 500 MG/100 ML 500 MG/100 ML BAG IVPB SCH (15:41)
[2018-06-01] MEDS: Ondansetron 4 MG/2 ML VIAL IVP SCH ×3 (00:15→12:16)
[2018-06-01] MEDS: D5% in 0.45% NACL 1,000 ML IVC SCH ×2 (00:39→11:30)
[2018-06-01 05:16] LABS: Basophils % 0.2 %; Eosinophils # 0.3 K/mcL (0.0-0.6); Hematocrit 33.8 % (35.3-44.9); Hemoglobin 10.6 g/dL (11.5-15.4); Immature Granulocytes % 0.9 % (0-4); Lymphocytes # 1.4 K/mcL (0.6-4.6); Lymphocytes % 25.3 %; Mean Corpuscular HGB Conc 31.4 g/dL (31.6-35.5); Mean Corpuscular Volume 92.3 fL (83.0-100.0); Mean Platelet Volume 13.6 fL (9.4-12.4); Monocytes # 0.9 K/mcL (0.0-1.3); Monocytes % 16.5 %; Neutrophils # 2.7 K/mcL (1.6-8.9); Platelet Count 133 K/mcL (140-400); Red Blood Count 3.66 M/mcL (3.82-4.97); Red Cell Distribution Width 17.5 % (11.5-14.5); Segmented Neutrophils % 51.1 %
[2018-06-01 05:29] LABS: BUN/Creatinine Ratio 7 (6-26); Blood Urea Nitrogen 5 mg/dL (8-23); Calcium 7.7 mg/dL (8.6-10.3); Carbon Dioxide 27 mEq/L (23-29); Chloride 106 mEq/L (98-107); Glucose 149 mg/dL (70-105); Magnesium 1.9 mg/dL (1.6-2.6); Osmolality,Calculated 288 (280-300); Phosphorous 2.2 mg/dL (2.7-4.5); Potassium 3.5 mEq/L (3.5-5.1); Sodium 139 mEq/L (136-145); eGFR For Non-African Americans > 60 (> 60)
[2018-06-01] MEDS: *HR* Heparin 5,000 UNIT/ML VIAL SQ SCH (06:35)
[2018-06-01] MEDS: Insulin LISPRO 300 UNITS/3 ML VIAL SQ SCH ×2 (08:34→11:31)
[2018-06-01] MEDS: Pantoprazole 40 MG VIAL IVP SCH (08:36)
--- NOTE | 2018-06-01 10:52 | Discharge Summary ---
Orders not resulted at time of discharge: Pending orders 05/30/18 11:12 Culture,Blood [BC] Stat 06/02/18 04:00 Basic Metabolic Panel AM 0400 CBC [Complete Blood Count] [HEME] AM 0400 Magnesium AM 0400 Phosphorous AM 0400 06/03/18 04:00 Basic Metabolic Panel AM 0400 CBC [Complete Blood Count] [HEME] AM 0400 Magnesium AM 0400 Phosphorous AM 0400 06/04/18 04:00 Basic Metabolic Panel AM 0400 CBC [Complete Blood Count] [HEME] AM 0400 Magnesium AM 0400 Phosphorous AM 0400 06/05/18 04:00 Basic Metabolic Panel AM 0400 CBC [Complete Blood Count] [HEME] AM 0400 Magnesium AM 0400 Phosphorous AM 0400 06/06/18 04:00 Basic Metabolic Panel AM 0400 CBC [Complete Blood Count] [HEME] AM 0400 Magnesium AM 0400 Phosphorous AM 0400 Date of Encounter: 06/01/18 Time of Encounter: 09:50 - Discharge Diagnosis (1) Diarrhea Priority: Primary Status: Acute Assessment and Plan: 73 year old female PMH of MM on chemotherapy, HTN, T2DM. Patient presented to the ED due to nausea, vomiting and diarrhea. Patient reports that today at around 6:30am she started feeling very nauseated and started having non- billious, non-bloody vomiting episodes associated with abdominal soreness and diarrhea, which she describes a large, watery stools. She was assessed with diarrhea possibly secondary to gastroenteritis vs chemotherapy (revlimid) side effect. GI panel was negative and it determined h er diarrhea was likely secondary to her chemotherapy. She was managed supportively and improved with IV fluids and imodium. She will follow up with oncology as an outpatient. She was discharged in a stable condition. Qualifiers: Diarrhea type: unspecified type Qualified Code(s): R19.7 - Diarrhea, unspecified (2) Nausea and vomiting Priority: Primary Status: Acute Qualifiers: Vomiting type: bilious vomiting Qualified Code(s): R11.14 - Bilious vomiting (3) Diabetes type 2, controlled Priority: Primary Status: Chronic Qualifiers: Diabetes mellitus detention insulin use: unspecified manager of health insulin use status Diabetes mellitus complication status: with unspecified complications Qualified Code(s): E11.8 - Type 2 diabetes mellitus with unspecified complications (4) Multiple myeloma Priority: Primary Status: Chronic Qualifiers: Multiple myeloma remission status: unspecified Qualified Code(s): C90.00 - Multiple myeloma not having achieved remission (5) UTI (urinary tract infection) Priority: Primary Status: Acute Qualifiers: Urinary tract infection type: site unspecified Hematuria presence: without hematuria Qualified Code(s): N39.0 - Urinary tract infection, site not specified (6) Hypertension Priority: Primary Status: Acute Qualifiers: Hypertension type: unspecified Qualified Code(s): I10 - Essential (primary) hypertension (7) DVT prophylaxis Priority: Primary Status: Acute Hospital course: Ms. Wayne is a 73 year old female - Time Spent with Patient Total time spent providing and/or coordinating discharge services: - Discharge Medications Prescriptions: Loperamide [Imodium] 2 mg PO Q4HR PRN 14 Days #30 capsule PRN Reason: Diarrhea Acyclovir [Zovirax] 400 mg PO BID 30 Days #60 capsule Home Medications: Atorvastatin [Lipitor] 10 mg PO HS 02/14/18 [History] Cholecalciferol (D-3) [Vitamin D] 2,000 unit PO DAILY 02/14/18 [History] Citalopram Hydrobromide [Citalopram HBr] 20 mg PO BID 02/14/18 [History] Fesoterodine Fumarate [Toviaz] 4 mg PO DAILY 02/14/18 [History] Furosemide [Lasix] 20 mg PO DAILY PRN 02/14/18 [History] Pantoprazole Sodium [Protonix] 40 mg PO DAILY 02/14/18 [History] Verapamil [Isoptin] 120 mg PO BID 02/14/18 [History] Vit C/E/Zn/Coppr/Lutein/Zeaxan [Preservision Areds 2 Softgel] 1 cap PO DAILY 0 02/14/18 [History] Ubidecarenone [Co Q10] 200 mg PO DAILY 02/24/18 [History] Ferrous Sulfate [Iron] 325 mg PO BID 03/08/18 [History] Cyanocobalamin (Vitamin B-12) [Vitamin B12] 1 tab PO DAILY #30 tablet 03/20/18 [Rx] Cyanocobalamin (B-12) [Vitamin B12] 1,000 mcg IM QMONTH #12 vial 03/24/18 [Rx] Lenalidomide [Revlimid] 25 mg PO DAILY #14 capsule 05/12/18 [Rx] Ascorbic Acid [Vitamin C] 250 mg PO DAILY 05/30/18 [History] Dexamethasone [Decadron] 5 tab PO WE 05/30/18 [History] Metformin HCl 1,000 mg PO BID 05/30/18 [History] Potassium Chloride [K-Tab ER] 10 meq PO BID 05/30/18 [History] Acyclovir [Zovirax] 400 mg PO BID 30 Days #60 capsule 06/01/18 [Rx] Loperamide [Imodium] 2 mg PO Q4HR PRN 14 Days #30 capsule 06/01/18 [Rx] Allergies/Adverse Reactions: Allergy/AdvReac Type Severity Reaction Status Date / Time Amoxicillin [From Augmentin] Allergy Diarrhea Verified 05/30/18 15:05 clavulanic acid Allergy Diarrhea Verified 05/30/18 15:05 [From Augmentin] Sulfa (Sulfonamide Allergy Hives Verified 05/30/18 15:05 Antibiotics) Date of admission: 05/30/18 16:09 Primary care physician: Karthikeyan Quinones MD Consults: 05/30/18 17:57 Consult to Nutrition [CONS] Routine Comment: Consulting Provider: NUTRITION Reason for Dietary Consult: Diet Education 05/30/18 18:22 Consult to Oncology [CONS] Routine Consulting Provider: [facility] Reason for Consult: multiple myeloma Call Completed: Yes 05/31/18 09:52 Consult to Oncology [CONS] Routine Consulting Provider: [facility] Reason for Consult: multiple myeloma on chemotherapy Call Completed: No - Constitutional Vitals: Temp Pulse Resp BP Pulse Ox 97.9 F 65 15 142/75 96 06/01/18 07:27 06/01/18 07:27 06/01/18 07:27 06/01/18 07:27 06/01/18 07:27 Exam: General: Alert and oriented 4. In mild distress due to nausea and vomiting Skin:Normal color, no rash, no lesions. HEENT: Dry oral mucosa. EOM, pupils equal, round and reactive. Cardiovascular: RRR, Normal S1 & S2, no rubs, murmurs or gallops. Lungs: Clear to auscultation bilaterally no wheezes or crackles. Abdomen: Obese, Soft, non-tender, no rigidity. NABS in all 4 quadrants. Extremities: No deformity, no edema or tenderness, no joint swelling or clubbing. Neurological: Normal cognition and motor skills. Rest of the physical exam is non contributory - Patient Status Disposition: Home, Self-Care Condition: Good - Discharge Instructions Follow Up With: Karthikeyan Quinones MD [Primary Care Provider] - 06/06/18 1:15 pm Elias Boles MD [Partnered Physician] - 06/16/18 9:00 am
[2018-06-01 10:54] VITALS: BP 149/79
[2018-06-01] MEDS: Acyclovir 200 MG CAPSULE PO SCH (11:29)
== END 2018-06-01 12:31 | disposition home or self-care (01) ==
LOC: 3ANU 10:15 → EMEROOARM 10:15 → 3ANU 17:29
PROVIDERS: ADMIT Internal Medicine Nephrology; ATTEND Internal Medicine Nephrology

== ENCOUNTER 2018-07-17 20:51 | Observation (INO) ==
[2018-07-17 21:13] LABS: Basophils % 0.3 %; Hemoglobin 12.9 g/dL (11.5-15.4); Red Cell Distribution Width 19.5 % (11.5-14.5)
[2018-07-17 21:14] LABS: Eosinophils # 0.1 K/mcL (0.0-0.6); Eosinophils % 1.6 %; Hematocrit 39.8 % (35.3-44.9); Immature Granulocytes % 1.5 % (0-4); Immature Platelets 14.5 % (1.1-6.1); Lymphocytes # 1.4 K/mcL (0.6-4.6); Lymphocytes % 18.7 %; Mean Corpuscular HGB Conc 32.4 g/dL (31.6-35.5); Mean Corpuscular Hemoglobin 29.3 pg (28.0-33.3); Mean Corpuscular Volume 90.5 fL (83.0-100.0); Monocytes # 1.1 K/mcL (0.0-1.3); Neutrophils # 4.8 K/mcL (1.6-8.9); Nucleated Red Blood Cells 0.9 /100 WBC (0); Segmented Neutrophils % 62.9 %
[2018-07-17] MEDS ORDERED: 0.9 % Sodium Chloride 1,000 ML IVC ONE (21:17)
[2018-07-17 21:19] LABS: INR 1.1; Prothrombin Time 12.3 Seconds (9.4-12.1)
--- NOTE | 2018-07-17 21:23 | Emergency Department Note ---
Disposition Clinical Impression: Dizziness Multiple myeloma Qualifiers: Multiple myeloma remission status: unspecified Qualified Code(s): C90.00 - Multiple myeloma not having achieved remission Disposition: Admitted As Inpatient Condition: Fair Time of Disposition: 01:10 Dizziness HPI - General Chief Complaint: ED Dizziness Stated Complaint: DIZZINESS Time Seen by Provider: 07/17/18 21:08 Source: patient Mode of arrival: wheelchair Limitations: no limitations Nursing Notes Reviewed: Yes Vital Signs Reviewed: Yes - History of Present Illness HPI Narrative: Patient presents to the ED with chief complaint of dizziness. Reported that it started about 10:30 this morning. She states she feels like the room is spinning, but also like she is going to pass out. States that she is actively getting chemotherapy for multiple myeloma and is followed by oncology here. Denies any fever. Has had some chills. Complaining of generalized weakness. Is complaining of some right-sided facial and arm tingling, but she denies any numbness or focal weakness. She denies any chest pain or shortness of breath. No abdominal pain. Has chronic nausea but no vomiting. No recent diarrhea. No rashes. States that she has not felt like this before and does not feel right. No history of trauma or recent falls - Related Data Home Medications Medication Instructions Recorded Confirmed RX: Atorvastatin [Lipitor] 10 mg PO HS 02/14/18 07/04/18 RX: Cholecalciferol (D-3) [Vitamin 2,000 unit PO DAILY 02/14/18 07/04/18 D] RX: Citalopram Hydrobromide 20 mg PO BID 02/14/18 07/04/18 [Citalopram HBr] RX: Fesoterodine Fumarate [Toviaz] 4 mg PO DAILY 02/14/18 07/04/18 RX: Furosemide [Lasix] 20 mg PO DAILY PRN 02/14/18 07/04/18 RX: Pantoprazole Sodium [Protonix] 40 mg PO DAILY 02/14/18 07/04/18 RX: Verapamil [Isoptin] 120 mg PO BID 02/14/18 07/04/18 RX: Vit C/E/Zn/Coppr/Lutein/Zeaxan 1 cap PO DAILY 02/14/18 07/04/18 [Preservision Areds 2 Softgel] RX: Ubidecarenone [Co Q10] 200 mg PO DAILY 02/24/18 07/04/18 RX: Ferrous Sulfate [Iron] 325 mg PO BID 03/08/18 07/04/18 RX: Ascorbic Acid [Vitamin C] 250 mg PO DAILY 05/30/18 07/04/18 RX: Dexamethasone [Decadron] 5 tab PO WE 05/30/18 07/04/18 RX: Metformin HCl 1,000 mg PO BID 05/30/18 07/04/18 Previous Rx's Medication Instructions Recorded RX: Cyanocobalamin (Vitamin B-12) 1 tab PO DAILY #30 tablet 03/20/18 [Vitamin B12] RX: Cyanocobalamin (B-12) [Vitamin 1,000 mcg IM QMONTH #12 vial 03/24/18 B12] Cyanocobalamin (Vitamin B-12) 1 tab PO DAILY #30 tablet 07/04/18 [Vitamin B12] Ondansetron HCl [Zofran] 1 tab PO Q6H PRN #30 tablet 07/04/18 Prochlorperazine Maleate 1 tab PO Q6HR PRN #30 tablet 07/04/18 [Compazine] RX: Potassium Chloride [K-Tab ER] 10 meq PO BID #30 tablet.er 07/05/18 RX: Lenalidomide [Revlimid] 25 mg PO DAILY #14 capsule 07/17/18 Allergies Allergy/AdvReac Type Severity Reaction Status Date / Time Amoxicillin [From Augmentin] Allergy Diarrhea Verified 06/16/18 09:09 clavulanic acid Allergy Diarrhea Verified 06/16/18 09:09 [From Augmentin] Sulfa (Sulfonamide Allergy Hives Verified 06/16/18 09:09 Antibiotics) Review of Systems: As reviewed in the HPI. All other systems reviewed are negative or normal. Past Medical History - Past Medical History Attestation: Yes The following information was validated with the patient. Source: patient Medical history: Reports: arthritis, cancer, diabetes, GERD, hyperlipidemia, hypertension, other Surgical history: Reports: appendectomy, cholecystectomy, hysterectomy, knee replacement, orthopedic, other Psychiatric history: Reports: anxiety, depression - Social History Smoking Status: Former smoker Smokeless Tobacco Status: No Alcohol use: Reports: rarely Drug use: Reports: none Physical Exam CONSTITUTIONAL: [[place] appearing, alert and in no acute distress] EYES: [EOMI, clear conjunctiva, PERRLA] HENT: [Normocephalic, atraumatic, moist mucus membranes, normal oropharynx] NECK: [normal inspection, full ROM, trachea midline, no obvious swelling] PULMONARY: [normal lung sounds bilaterally, normal chest rise and fall, no respiratory distress or stridor, no wheezes, no rales, no rhonchi CARDIOVASCULAR: [regular rate, regular rhythm, normal heart sounds, no murmurs, distal extremities are warm and well perfused] GASTROINSTESTINAL: [soft, non-tender, non-rigid, non-distended, no guarding, no rebound, normal bowel sounds] GENITOURINARY/RECTAL: [deferred] NEUROLOGIC: [Alert, oriented x3, normal speech, moves all extremities, she does have some generalized weakness but her NIH is 0. She states that her right face and arm feel tingly, but she denies any decreased sensation.] EXTREMITIES: [Normal inspection, full ROM, no tenderness, no pedal edema, normal capillary refill] MUSCULOSKELETAL: [no gross deformities, atraumatic] SKIN: [No cyanosis, no diaphoresis, normal color, warm, no rash] PSYCHIATRIC: [anxious] - General Limitations: no limitations General appearance: alert Course Course Narrative: Patient presenting with dizziness. Is getting active chemotherapy with her last dose yesterday. She does have a normal neurological exam at this time. However, her finger to nose on the left is slightly more slow and very mildly abnormal. Her symptoms started at 10:30 AM and she is well outside of the window for TPA. We will get a noncontrast CT of her head to evaluate for intracranial hemorrhage. If this is negative. We will get a CT of her head and neck. If there is no vascular occlusion or acute abnormality. We will admit to the hospital service for MRI. Otherwise, we will transfer. - Reevaluation(s) Reevaluation #1: Patient's head CT and CTA were unremarkable. Has some chronic microvascular changes and changes consistent with her known multiple myeloma. We do think the patient will need to be admitted for MRI. Spoke with the hospitalist and they were agreeable with admission. Did request aspirin and maintenance IV fluids which were ordered. Patient family agreeable with plan Vital Signs Temperature 98.4 F 07/17/18 20:54 Pulse Rate 104 07/17/18 20:54 Respiratory Rate 22 07/17/18 20:54 Blood Pressure 150/84 07/17/18 20:54 O2 Sat by Pulse Oximetry 97 07/17/18 20:54 Temperature 98.4 F 07/17/18 20:54 Pulse Rate 104 07/17/18 20:54 Respiratory Rate 22 07/17/18 20:54 Blood Pressure 150/84 07/17/18 20:54 O2 Sat by Pulse Oximetry 97 07/17/18 20:54 Oxygen Delivery Oxygen Delivery Room Air Dizziness - Medical Records Medical records reviewed: Yes I reviewed the patient's medical records. - Lab Data Lab results reviewed: Yes I reviewed the patient's lab results. Result diagrams: 07/17/18 21:01 07/17/18 21:01 Lab Results 07/17/18 07/17/18 07/17/18 Range/Units 21:01 21:01 21:01 WBC 7.6 (4.3-11.1) K/mcL RBC 4.40 (3.82-4.97) M/mcL Hgb 12.9 (11.5-15.4) g/dL Hct 39.8 (35.3-44.9) % MCV 90.5 (83.0-100.0) fL MCH 29.3 (28.0-33.3) pg MCHC 32.4 (31.6-35.5) g/dL RDW 19.5 H (11.5-14.5) % Plt Count 115 L (140-400) K/mcL MPV TNP Immature Gran % 1.5 (0-4) % Seg Neutrophils % 62.9 % Lymphocytes % 18.7 % Monocytes % 15.0 % Eosinophils % 1.6 % Basophils % 0.3 % Neutrophils # 4.8 (1.6-8.9) K/mcL Lymphocytes # 1.4 (0.6-4.6) K/mcL Monocytes # 1.1 (0.0-1.3) K/mcL Eosinophils # 0.1 (0.0-0.6) K/mcL Basophils # 0.0 (0.0-0.2) K/mcL Nucleated RBCs/100 WBC 0.9 H (0) /100 WBC Immature Plt Fraction 14.5 H (1.1-6.1) % PT 12.3 H (9.4-12.1) Seconds INR 1.1 Sodium 138 (136-145) mEq/L Potassium 3.2 L (3.5-5.1) mEq/L Chloride 101 (98-107) mEq/L Carbon Dioxide 26 (23-29) mEq/L BUN 13 (8-23) mg/dL Creatinine 0.81 (0.60-1.20) mg/dL Est GFR ( Amer) > 60 (> 60) Est GFR (Non-Af Amer) > 60 (> 60) BUN/Creatinine Ratio 16 (6-26) Glucose 129 H (70-105) mg/dL Calculated Osmolality 288 (280-300) Lactic Acid (0.5-2.2) mmol/L Calcium 8.6 (8.6-10.3) mg/dL Total Bilirubin 0.7 (0.3-1.0) mg/dL AST 13 (13-39) Units/L ALT 17 (7-52) Units/L Alkaline Phosphatase 93 (34-104) Units/L Troponin I < 0.03 (< 0.04) ng/mL Serum Total Protein 6.4 (6.4-8.9) g/dL Albumin 4.0 (3.5-5.7) g/dL Globulin 2.4 (2.4-3.5) g/dL Albumin/Globulin Ratio 1.7 (1.1-2.2) 07/17/18 Range/Units 21:01 WBC (4.3-11.1) K/mcL RBC (3.82-4.97) M/mcL Hgb (11.5-15.4) g/dL Hct (35.3-44.9) % MCV (83.0-100.0) fL MCH (28.0-33.3) pg MCHC (31.6-35.5) g/dL RDW (11.5-14.5) % Plt Count (140-400) K/mcL MPV Immature Gran % (0-4) % Seg Neutrophils % % Lymphocytes % % Monocytes % % Eosinophils % % Basophils % % Neutrophils # (1.6-8.9) K/mcL Lymphocytes # (0.6-4.6) K/mcL Monocytes # (0.0-1.3) K/mcL Eosinophils # (0.0-0.6) K/mcL Basophils # (0.0-0.2) K/mcL Nucleated RBCs/100 WBC (0) /100 WBC Immature Plt Fraction (1.1-6.1) % PT (9.4-12.1) Seconds INR Sodium (136-145) mEq/L Potassium (3.5-5.1) mEq/L Chloride (98-107) mEq/L Carbon Dioxide (23-29) mEq/L BUN (8-23) mg/dL Creatinine (0.60-1.20) mg/dL Est GFR ( Amer) (> 60) Est GFR (Non-Af Amer) (> 60) BUN/Creatinine Ratio (6-26) Glucose (70-105) mg/dL Calculated Osmolality (280-300) Lactic Acid 3.4 H (0.5-2.2) mmol/L Calcium (8.6-10.3) mg/dL Total Bilirubin (0.3-1.0) mg/dL AST (13-39) Units/L ALT (7-52) Units/L Alkaline Phosphatase (34-104) Units/L Troponin I (< 0.04) ng/mL Serum Total Protein (6.4-8.9) g/dL Albumin (3.5-5.7) g/dL Globulin (2.4-3.5) g/dL Albumin/Globulin Ratio (1.1-2.2) - Radiology Data Radiology results reviewed: Yes I reviewed the patient's radiology results. - EKG Data EKG attestation: Yes I reviewed and interpreted this EKG. EKG results narrative: Sinus rhythm, rate 83, left axis deviation, prolonged QTC at 505, no acute ischemic changes Attestation Statement - Attestation Attestation: Resident Attestation: I examined this patient and my medical decision making was reviewed with the Resident Physician. I agree with the documented findings, disposition and treatment plan as described except to the extent set forth below. We independently had [id number] contact with the patient. Seen alongside resident physician Jesus Mariscal. Please see his note for further details and disposition. Patient presenting today for evaluation of vertiginous symptoms as well as left- sided paresthesias to the face and the arm. No significant weakness on exam. No facial droop. No weakness to the upper lower extremities. Patient does have replication of her vertiginous symptoms with vertical eye movements. Finger to nose on the left is slowed compared to the right and she tries to self correct. Initial CT negative. CTA head and neck. If negative admit for further stroke evaluation. Last known well was approximately 10 AM. Patient outside the window for TPA. Stroke alert was not activated secondary to this.
[2018-07-17 21:29] LABS: Platelet Count 115 K/mcL (140-400)
[2018-07-17 21:30] LABS: Alanine Aminotransferase 17 Units/L (7-52); Albumin/Globulin Ratio 1.7 (1.1-2.2); Alkaline Phosphatase 93 Units/L (34-104); Aspartate Amino Transferase 13 Units/L (13-39); BUN/Creatinine Ratio 16 (6-26); Bilirubin,Total 0.7 mg/dL (0.3-1.0); Blood Urea Nitrogen 13 mg/dL (8-23); Calcium 8.6 mg/dL (8.6-10.3); Carbon Dioxide 26 mEq/L (23-29); Chloride 101 mEq/L (98-107); Globulin 2.4 g/dL (2.4-3.5); Glucose 129 mg/dL (70-105); Osmolality,Calculated 288 (280-300); Potassium 3.2 mEq/L (3.5-5.1); Sodium 138 mEq/L (136-145); Total Protein 6.4 g/dL (6.4-8.9); Troponin I < 0.03 ng/mL (< 0.04); eGFR For Non-African Americans > 60 (> 60)
[2018-07-17] MEDS ORDERED: Isovue-370 500 ML INFUS..BTL IV ONE (22:37)
[2018-07-18] MEDS ORDERED: Aspirin 81 MG TAB.CHEW PO ONE (01:06)
[2018-07-18] MEDS ORDERED: 0.9 % Sodium Chloride 1,000 ML IVC SCH (01:15)
[2018-07-18] MEDS: 0.9 % Sodium Chloride 1,000 ML IVC SCH ×2 (01:23→01:24)
[2018-07-18 03:06] LABS: Bilirubin,Urine Negative (Negative); Blood,Urine Negative (Negative); Clarity,Urine Cloudy (Clear); Color,Urine Yellow (Yellow); Glucose,Urine (UA) Normal (Normal); Ketones,Urine Negative (Negative); Leukocyte Esterase,Urine Large (Negative); Nitrite,Urine Negative (Negative); Protein,Urine Trace mg/dL (Neg-Trace); Specific Gravity,Urine 1.026 (1.010-1.025); Urobilinogen,Urine Normal (Normal)
[2018-07-18 03:08] LABS: Bacteria,Urine Many per hpf (None-Few); Hyaline Casts,Urine None Seen per lpf (None-Few); RBC,Urine 0-3 per hpf (0-3); Squamous Epithelial Cell,Urine Many per lpf (None-Few)
[2018-07-18] MEDS ORDERED: Naloxone 0.4 MG/ML INJ IVP PRN (03:56)
[2018-07-18] MEDS ORDERED: D5% in Water 1,000 ML IVC PRN (03:56)
[2018-07-18] MEDS ORDERED: Dextrose Gel 15 GM/37.5 ML TUBE PO PRN ×2 (03:56)
[2018-07-18] MEDS ORDERED: *HR* Dextrose 50 % in Water (Syg) 50 ML SYRINGE IVP PRN (03:56)
[2018-07-18] MEDS ORDERED: Acetaminophen 325 MG TABLET PO PRN (03:57)
[2018-07-18] MEDS: *HR* Heparin 5,000 UNIT/ML VIAL SQ SCH ×2 (04:13→16:49)
[2018-07-18] MEDS: 0.9 % Sodium Chloride w KCl 20 MEQ/1,000 ML MLS IVC SCH ×2 (04:13→17:11)
--- NOTE | 2018-07-18 04:33 | Internal Med History&Physical ---
Date of Encounter: 07/18/18 Time of Encounter: 03:50 Internal Medicine - H&P: HPI Chief complaint: dizziness Admitted From: Emergency Dept Plans for Post Hospital Care: Home History of present illness: Ms. Wayne is a 73 year old female who [facility] with sudden onset of dizziness and vertigo yesterday. 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 She states her symptoms are very similar to her prior episode of vertigo many years ago. Because symptoms persisted, she came to ER. Workup in ER was negative by CT imaging. Nonetheless, she was admitted for further workup and MRI. Upon my assessment of the patient, patient states she feels somewhat better than earlier yesterday. However, she still feels dizzy and lightheaded especially when she turns her head and tries to sit up. When lying flat in bed she is asymptomatic. She denies any prior stroke or heart disease. However, she is diabetic and hypertensive, both of which can be risk factors. She denies any recent URI or head cold. Her glucose control has been fairly good with average glucose running 100-126. Past Med Surg Social Fam HX - Past Medical History Attestation: Yes The following information was validated with the patient. Source: patient, old records reviewed Medical history: arthritis, cancer (multiple myeloma), diabetes, GERD, hyperlipidemia, hypertension, other Additional medical history: sleep apnea. Psychiatric history: anxiety, depression - Past Surgical History Surgical History: appendectomy, cholecystectomy, hysterectomy, knee replacement, orthopedic, other Additional surgical history: BILATERAL KNEE REPLACEMENTS. LEFT ELBOW REPAIR - Social History Smoking Status: Former smoker Smokeless Tobacco Status: No Alcohol use: rarely Drug use: none Current living situation: Home Activity Level: Independent ambulation Recent Out of Country Travel Within the Last 8 Weeks: No - Family History Sister Hx Family Cardiac Disorders: Yes ([place]) Hx Family Cancer: Yes (Colon) Grandfather Hx Family Cardiac Disorders: Yes (Stroke) Internal Medicine - H&P: Meds Atorvastatin [Lipitor] 10 mg PO HS 02/14/18 [History] Cholecalciferol (D-3) [Vitamin D] 2,000 unit PO DAILY 02/14/18 [History] Citalopram Hydrobromide [Citalopram HBr] 20 mg PO BID 02/14/18 [History] Fesoterodine Fumarate [Toviaz] 4 mg PO DAILY 02/14/18 [History] Furosemide [Lasix] 20 mg PO DAILY PRN 02/14/18 [History] Pantoprazole Sodium [Protonix] 40 mg PO DAILY 02/14/18 [History] Verapamil [Isoptin] 120 mg PO BID 02/14/18 [History] Vit C/E/Zn/Coppr/Lutein/Zeaxan [Preservision Areds 2 Softgel] 1 cap PO DAILY 02/14/18 [History] Ubidecarenone [Co Q10] 200 mg PO DAILY 02/24/18 [History] Ferrous Sulfate [Iron] 325 mg PO BID 03/08/18 [History] Cyanocobalamin (Vitamin B-12) [Vitamin B12] 1 tab PO DAILY #30 tablet 03/20/18 [Rx] Cyanocobalamin (B-12) [Vitamin B12] 1,000 mcg IM QMONTH #12 vial 03/24/18 [Rx] Ascorbic Acid [Vitamin C] 250 mg PO DAILY 05/30/18 [History] Dexamethasone [Decadron] 5 tab PO WE 05/30/18 [History] Metformin HCl 1,000 mg PO BID 05/30/18 [History] Cyanocobalamin (Vitamin B-12) [Vitamin B12] 1 tab PO DAILY #30 tablet 07/04/18 [ Rx] Ondansetron HCl [Zofran] 1 tab PO Q6H PRN #30 tablet 07/04/18 [Rx] Prochlorperazine Maleate [Compazine] 1 tab PO Q6HR PRN #30 tablet 07/04/18 [Rx] Potassium Chloride [K-Tab ER] 10 meq PO BID #30 tablet.er 07/05/18 [Rx] Lenalidomide [Revlimid] 25 mg PO DAILY #14 capsule 07/17/18 [Rx] Allergy/AdvReac Type Severity Reaction Status Date / Time Amoxicillin [From Augmentin] Allergy Diarrhea Verified 06/16/18 09:09 clavulanic acid Allergy Diarrhea Verified 06/16/18 09:09 [From Augmentin] Sulfa (Sulfonamide Allergy Hives Verified 06/16/18 09:09 Antibiotics) - Constitutional Constitutional: no chills - EENT Eyes: no blurry vision, no change in vision Ears: no ear pain, no tinnitus Nose, mouth and throat: no nasal congestion, no nasal discharge, no sore throat - Cardiovascular Cardiovascular ROS IM: no chest pain, no dyspnea - Respiratory Respiratory: no cough, no chest congestion, no excessive phlegm production, no change in phlegm color - Gastrointestinal Gastrointestinal: nausea, no abdominal pain, no diarrhea, no vomiting - Genitourinary Genitourinary: no dysuria, no flank pain, no hematuria - Musculoskeletal Musculoskeletal ROS IM: arthralgias - Integumentary Integumentary IM: no rash, no jaundice - Neurological Neurological ROS: dizziness, vertigo, no focal weakness, no frequent falls, no headache(s), no numbness, no paresthesias - Psychiatric Psychiatric: no anxiety, no depression - Endocrine Endocrine IM: no polydipsia, no polyuria - Allergic/Immunologic Allergic/Immunologic: GI upset with certain foods, no wheezing - Constitutional Vitals: Temp Pulse Resp BP Pulse Ox 98 F 74 16 183/81 95 07/18/18 03:20 07/18/18 03:20 07/18/18 03:20 07/18/18 03:20 07/18/18 03:20 General appearance: Present: cooperative, A&O X 3, pleasant, answers questions appropriately Exam: see below - Head Head exam: Present: normal inspection - Eye Eye exam: Present: EOMI, PERRL. Absent: scleral icterus Pupils: Present: normal accommodation Additional comments: + nystagmus with head turning - ENT ENT exam: Present: mucous membranes dry, normal exam, normal oropharynx - Neck Neck exam general surgery: Present: full ROM, supple. Absent: tenderness, nuchal rigidity, thyromegaly - Respiratory Respiratory exam: Present: CTAB. Absent: chest wall tenderness, rales, rhonchi, wheezes - Cardiovascular Cardiovascular exam: Present: RRR, +S1, +S2. Absent: diastolic murmur, systolic murmur - GI/Abdominal GI/Abdominal exam: Present: normal bowel sounds, soft. Absent: hepatomegaly, mass, splenomegaly, tenderness - Extremities Exam Extremities exam: Present: full ROM, warm, radial pulses palpable and symmetrical. Absent: calf tenderness, pedal edema, tenderness - Back Exam Back exam: Absent: CVA tenderness (L), CVA tenderness (R) - Neurological Exam Neurological exam: Present: alert, oriented X3, strengths equal and symetr throughout. Absent: motor sensory deficit Additional comments: + nystagmus as above - Psychiatric Psychiatric exam: Present: normal affect, normal mood - Skin Skin exam: Present: dry, intact, warm Internal Med - H&P Results - Labs CBC & Chem 7: 07/17/18 21:01 07/17/18 21:01 Labs: Short CBC 07/17/18 Range/Units 21:01 WBC 7.6 (4.3-11.1) K/mcL Hgb 12.9 (11.5-15.4) g/dL Hct 39.8 (35.3-44.9) % Plt Count 115 L (140-400) K/mcL Neutrophils # 4.8 (1.6-8.9) K/mcL BMP 07/17/18 21:01 Sodium 138 Potassium 3.2 L Chloride 101 Carbon Dioxide 26 BUN 13 Creatinine 0.81 Glucose 129 H Calcium 8.6 Cardiac Enzymes 07/17/18 Range/Units 21:01 Troponin I < 0.03 (< 0.04) ng/mL Liver Function 07/17/18 Range/Units 21:01 Total Bilirubin 0.7 (0.3-1.0) mg/dL AST 13 (13-39) Units/L ALT 17 (7-52) Units/L Alkaline Phosphatase 93 (34-104) Units/L Albumin 4.0 (3.5-5.7) g/dL Urine 07/18/18 Range/Units 02:55 Urine Color Yellow (Yellow) Urine Clarity Cloudy A (Clear) Urine pH 7.0 (5.0-8.0) pH Units Ur Specific [place] 1.026 H (1.010-1.025) Urine Protein Trace (Neg-Trace) mg/dL Urine Glucose (UA) Normal (Normal) mg/dL - EKG Data -: EKG Interpreted by Myself - EKG Data Prior EKG available for review: no EKG comments: 07/18/18 04:58 NSR; QTc prologned; no acute ST-T changes - Impressions ITS Impressions Head CT 07/17/18 21:10 IMPRESSION: No acute intracranial abnormality. Severe chronic microangiopathic ischemic changes of cerebral white matter. Remote lacunar infarcts of the thalami and basal ganglia. As directed clinically, consider correlation with MRI brain to exclude occult acute on chronic ischemia given background of extensive chronic ischemic changes. D/ / Steven Noguera / Steven Noguera Interpreting Provider: Steven Noguera Chest X-Ray 07/17/18 21:11 IMPRESSION: No acute process. D/ / Fermin Mckeon MD / Fermin Mckeon MD Interpreting Provider: Fermin Mckeon MD Head CTA 07/17/18 22:37 IMPRESSION: CTA of the head and neck without acute arterial abnormality. Osseous demineralization with multiple lucent foci within the calvarium possibly representing venous lakes or multiple myeloma in the current clinical setting. D/ / Steven Noguera / Steven Noguera Interpreting Provider: Steven Noguera Neck CTA 07/17/18 22:37 IMPRESSION: CTA of the head and neck without acute arterial abnormality. Osseous demineralization with multiple lucent foci within the calvarium possibly representing venous lakes or multiple myeloma in the current clinical setting. D/ / Steven Noguera / Steven Noguera Interpreting Provider: Steven Noguera - Diagnostic Studies Chest x-ray Status: image reviewed by me (negative) - Assessment and plan (1) Dizziness Current Visit: Yes Status: Acute Assessment and plan: 1. Will order MRI to rule out cerebellar stroke. 2. Suspect vertigo clinically. 3. Will try Meclizine if MRI negative. 4. IVF hydration and hold diuretics. (2) Multiple myeloma Current Visit: Yes Status: Chronic Assessment and plan: 1. Follow up with Hem/ONC. 2. Resume home meds as appropriate once verified. Qualifiers: Multiple myeloma remission status: unspecified Qualified Code(s): C90.00 - Multiple myeloma not having achieved remission (3) Diabetes type 2, controlled Current Visit: Yes Status: Chronic Assessment and plan: 1. Hold oral home meds. 2. Will order SSI and monitor glucose closely with adjustment as needed. Qualifiers: Diabetes mellitus senior care insulin use: unspecified senior care insulin use status Diabetes mellitus complication status: with unspecified complications Qualified Code(s): E11.8 - Type 2 diabetes mellitus with unspecified complications (4) DVT prophylaxis Current Visit: Yes Status: Acute Assessment and plan: 1. Heparin SQ.
[2018-07-18 06:32] LABS: INR 1.1; Prothrombin Time 12.6 Seconds (9.4-12.1)
[2018-07-18 06:41] LABS: Estimated Average Glucose 146 mg/dl; Hemoglobin A1C 6.7 %
[2018-07-18 06:52] LABS: Troponin I 0.04 ng/mL (< 0.04)
[2018-07-18 07:25] LABS: Alanine Aminotransferase 14 Units/L (7-52); Albumin 3.4 g/dL (3.5-5.7); Albumin/Globulin Ratio 1.6 (1.1-2.2); Alkaline Phosphatase 80 Units/L (34-104); Aspartate Amino Transferase 12 Units/L (13-39); BUN/Creatinine Ratio 17 (6-26); Bilirubin,Total 0.9 mg/dL (0.3-1.0); Blood Urea Nitrogen 9 mg/dL (8-23); Calcium 7.6 mg/dL (8.6-10.3); Carbon Dioxide 25 mEq/L (23-29); Chloride 107 mEq/L (98-107); Chol/HDL Ratio 2.1 (0-4.9); Cholesterol 152 mg/dL (< 200); Globulin 2.1 g/dL (2.4-3.5); Glucose 121 mg/dL (70-105); HDL Cholesterol 71 mg/dL (40-59); LDL Cholesterol,Calculated 62 mg/dL (0-99); Osmolality,Calculated 294 (280-300); Sodium 142 mEq/L (136-145); Total Protein 5.5 g/dL (6.4-8.9); Triglycerides 94 mg/dL (< 150); eGFR For Non-African Americans > 60 (> 60)
--- NOTE | 2018-07-18 11:43 | Internal Med Progress Note ---
Hospitalist Progress Note - Encounter Date of Encounter: 07/18/18 Time of Encounter: 11:43 - Subjective Interval History: The patient presented yesterday with paresthesias as well as R UE paresthesias, RLE weakness and disequilibrium. This morning per my assessment she continues to endorse mild perioral paresthesias as well as paresthesias in her right hand and fingers. She is also continuing to have some right lower extremity weakness and disequilibrium. She does note that this is improving today in comparison to yesterday morning at 10 AM when her symptoms began. - Exam Vitals: Temp Pulse Resp BP Pulse Ox 98.6 F 79 15 148/81 96 07/18/18 06:38 07/18/18 06:38 07/18/18 06:38 07/18/18 06:38 07/18/18 06:38 Exam: PHYSICAL EXAMINATION: GENERAL: The patient is an elderly obese female, NAD, a and O 3 HEENT: Head is normocephalic and atraumatic. Extraocular muscles are intact. Pupils are equal, round, and reactive to light and accommodation. NECK: Supple. No carotid bruits. No lymphadenopathy or thyromegaly. LUNGS: Clear to auscultation B/L AP and L. HEART: Regular rate and rhythm, S1, S2 without murmur. ABDOMEN: Soft, nontender, and nondistended. Positive bowel sounds. No hepatosplenomegaly was noted. EXTREMITIES: Without any cyanosis, clubbing, rash, lesions or edema. NEUROLOGIC: MENTAL STATUS: AAOx3, LANG/SPEECH: fluent, follows 3-step commands CRANIAL NERVES: II: Pupils equal and reactive, no RAPD, no VF deficits III, IV, : EOM intact, no gaze preference or deviation, no nystagmus. V: normal sensation in LT V1, V2, and V3 segments bilaterally, abnormal on RT with perioral numbness and tingling VII: no asymmetry, no nasolabial fold flattening VIII: normal hearing to speech IX, X: normal palatal elevation, no uvular deviation XI: 5/5 head turn and 5/5 shoulder shrug bilaterally XII: midline tongue protrusion MOTOR: 5/5 muscle power in Rt shoulder abductors/adductors, elbow flexors/extensors, 5/5 in Rt hip flexors/extensors, knee flexors/extensors, ankle dorsiflexors and planter flexors. 5/5 muscle power in Lt shoulder abductors/adductors, elbow flexors/extensors, 5/5 in Lt hip flexors/extensors, knee flexors/extensors, ankle dorsiflexors and planter flexors. SENSORY: Abnormal to touch (right perioral and right hand paresthesias) No hemineglect, no extinction to double sided stimulation (visual & tactile) Romberg absent COORD: Normal finger to nose, no dysmetria STATION: normal stance, no truncal ataxia GAIT: Unable to tip-toe, d/t disequilibrium with ambulation PSYCHIATRIC: Appropriate affect SKIN: No ulceration or induration present. - Assessment and Plan (1) CVA (cerebral vascular accident) Current Visit: Yes Status: Acute Assessment and Plan: LKW AT 1000 yesterday morning at 1000 developed right-sided paresthesias including perioral or seizures, right upper extremity. She was also experiencing dizziness, right lower extremity weakness and diseq uilibrium MRI confirms ischemic stroke MRI with the following findings-acute lacunar infarct is seen within the left thalamus; acute lacunar infarct is also seen within the left parietal lobe white matter Patient's symptoms are persistent but she reports that they are improving compared to yesterday CTA of head and neck without flow limiting stenosis I have discussed these findings with neurology and have consulted neurology; appreciate recommendations I will start the patient on 325 mg aspirin daily as well as high-dose statin and order an echocardiogram Continued NIHSS every 4 hours Continue neuro checks (2) Diabetes type 2, controlled Current Visit: Yes Status: Chronic Assessment and Plan: Continue SSI and monitor glucose closely with adjustment as needed. (3) Multiple myeloma Current Visit: Yes Status: Chronic Assessment and Plan: Per Hx Follow up with Hem/ONC. Resume home meds as appropriate once verified. (4) Dizziness Current Visit: Yes Status: Acute Assessment and Plan: Most likely 2/2 CVA DVT Prophylaxis: SC Heparin - Time Spent with Patient Total time spent is greater than 50% in coordination of care (as documented) at patient's floor/unit and/or counseling patient: less than 15 minutes Plan of Care Discussed with: patient Internal Medicine: Result - Labs CBC & Chem 7: 07/17/18 21:01 07/18/18 05:54 Labs: Short CBC 07/17/18 Range/Units 21:01 WBC 7.6 (4.3-11.1) K/mcL Hgb 12.9 (11.5-15.4) g/dL Hct 39.8 (35.3-44.9) % Plt Count 115 L (140-400) K/mcL Neutrophils # 4.8 (1.6-8.9) K/mcL BMP 07/17/18 07/18/18 21:01 05:54 Sodium 138 142 Potassium 3.2 L 3.0 L Chloride 101 107 Carbon Dioxide 26 25 BUN 13 9 Creatinine 0.81 0.54 L Glucose 129 H 121 H Calcium 8.6 7.6 L Cardiac Enzymes 07/17/18 07/18/18 Range/Units 21:01 05:54 Troponin I < 0.03 0.04 H* (< 0.04) ng/mL Liver Function 07/17/18 07/18/18 Range/Units 21:01 05:54 Total Bilirubin 0.7 0.9 (0.3-1.0) mg/dL AST 13 12 L (13-39) Units/L ALT 17 14 (7-52) Units/L Alkaline Phosphatase 93 80 (34-104) Units/L Albumin 4.0 3.4 L (3.5-5.7) g/dL Urine 07/18/18 Range/Units 02:55 Urine Color Yellow (Yellow) Urine Clarity Cloudy A (Clear) Urine pH 7.0 (5.0-8.0) pH Units Ur Specific [place] 1.026 H (1.010-1.025) Urine Protein Trace (Neg-Trace) mg/dL Urine Glucose (UA) Normal (Normal) mg/dL - ABG Interpretation ABG results: PT/INR, D-dimer PT 12.6 Seconds (9.4-12.1) H 07/18/18 05:54 - Impressions Impressions Head CT 07/17/18 21:10 IMPRESSION: No acute intracranial abnormality. Severe chronic microangiopathic ischemic changes of cerebral white matter. Remote lacunar infarcts of the thalami and basal ganglia. As directed clinically, consider correlation with MRI brain to exclude occult acute on chronic ischemia given background of extensive chronic ischemic changes. D/ / Steven Noguera / Steven Noguera Interpreting Provider: Steven Noguera Chest X-Ray 07/17/18 21:11 IMPRESSION: No acute process. D/ / Fermin Mckeon MD / Fermin Mckeon MD Interpreting Provider: Fermin Mckeon MD Head CTA 07/17/18 22:37 IMPRESSION: CTA of the head and neck without acute arterial abnormality. Osseous demineralization with multiple lucent foci within the calvarium possibly representing venous lakes or multiple myeloma in the current clinical setting. D/ / Steven Noguera / Steven Noguera Interpreting Provider: Steven Noguera Neck CTA 07/17/18 22:37 IMPRESSION: CTA of the head and neck without acute arterial abnormality. Osseous demineralization with multiple lucent foci within the calvarium possibly representing venous lakes or multiple myeloma in the current clinical setting. D/ / Steven Noguera / Steven Noguera Interpreting Provider: Steven Noguera Brain MRI 07/18/18 01:48 IMPRESSION: 1. Acute lacunar infarcts are seen within the left thalamus and left parietal periventricular white matter. No significant mass effect or midline shift. 2. No acute infarct is seen within the cerebellar hemispheres. 3. Moderate chronic microvascular ischemic changes. These results were sent to the [facility] ([facility] on 07/18/2018 at 9:20 am to be communicated to the referring/covering health care provider/office. D/ / Goldy Echevarria MD / Goldy Echevarria MD Interpreting Provider: Goldy Echevarria MD Consult Discharge Plan - Plan Referrals: Karthikeyan Quinones MD [Primary Care Provider] - (1) CVA (cerebral vascular accident) Qualifiers: CVA mechanism: unspecified Qualified Code(s): I63.9 - Cerebral infarction, unspecified (2) Diabetes type 2, controlled Qualifiers: Diabetes mellitus usp insulin use: unspecified long term acute care registered nurse insulin use status Diabetes mellitus complication status: with unspecified complications Qualified Code(s): E11.8 - Type 2 diabetes mellitus with unspecified complicatio ns (3) Multiple myeloma Qualifiers: Multiple myeloma remission status: unspecified Qualified Code(s): C90.00 - Multiple myeloma not having achieved remission
[2018-07-18] MEDS: Insulin LISPRO 300 UNITS/3 ML VIAL SQ SCH ×3 (12:44→16:20)
[2018-07-18] MEDS: Aspirin 325 MG TABLET PO SCH (12:49)
--- NOTE | 2018-07-18 13:16 | Neurology - Consult Note ---
<Shahbaz Hartmann - Last Filed: 07/18/18 14:52> Date of Encounter: 07/18/18 Time of Encounter: 11:50 Assessment and Plan (1) CVA (cerebral vascular accident) Current Visit: Yes Status: Acute Patient presented with right facial paresthesias, RUE paresthesias, and disequilibrium which have now resolved. Her only residual complaint is mild perioral parasthesia. CT brain revealed no acute intracranial abnormality with severe chronic microangiopathic ischemic changes of cerebral white matter and remote lacunar infarcts of the thalami and basal ganglia. MRI brain revealed acute lacunar infarcts are seen within the left thalamus and left parietal periventricular white matter with no significant mass effect or midline shift. No acute infarct were seen within the cerebellar hemispheres. CTA of the head and neck revealed no acute arterial abnormality and osseous demineralization with multiple lucent foci within the calvarium compatible with multiple myeloma. Neurology was consulted for further recommendations. Echo pending. Increase home Aspirin dose to 325 mg daily. Lipid panel reviewed. Continue statin. PT/OT consulted. Qualifiers: CVA mechanism: unspecified Qualified Code(s): I63.9 - Cerebral infarction, unspecified (2) Multiple myeloma Current Visit: Yes Status: Chronic Management per hemo/onc. Qualifiers: Multiple myeloma remission status: unspecified Qualified Code(s): C90.00 - Multiple myeloma not having achieved remission (3) Hypertension Current Visit: No Status: Chronic Management per primary team. Qualifiers: Hypertension type: unspecified Qualified Code(s): I10 - Essential (primary) hypertension (4) HLD (hyperlipidemia) Current Visit: Yes Status: Chronic Lipid panel reviewed. Continue statin. Qualifiers: Hyperlipidemia type: unspecified Qualified Code(s): E78.5 - Hyperlipidemia, unspecified (5) Morbidly obese Current Visit: Yes Status: Chronic BMI 41.0 History of Present Illness Chief complaint: Dizziness HPI: Ms. Wayne is a 73 year old female with a past medical history of multiple myeloma, hypertension, hyperlipidemia, and diabetes mellitus who presented complaining of dizziness since yesterday. She reported walking around feeling like she was "a drunken mobility manager". Symptoms are worsened by turning her head or trying to sit up. Symptoms are relieved by resting in bed. Patient report symptoms are very similar to prior episode of vertigo many years ago. Patient reports vertigo has improved today. Patient denies associated numbness, weakness, vision changes, or difficulty swallowing. CT brain revealed no acute intracranial abnormality with severe chronic microangiopathic ischemic changes of cerebral white matter and remote lacunar infarcts of the thalami and basal ganglia. MRI brain revealed acute lacunar infarcts are seen within the left thalamus and left parietal periventricular white matter with no significant mass effect or midline shift. No acute infarct were seen within the cerebellar hemispheres. CTA of the head and neck revealed no acute arterial abnormality and osseous demineralization with multiple lucent foci within the calvarium compatible with multiple myeloma. Neurology was c onsulted for further recommendations. Past Med Surg Social Fam HX - Past Medical History Medical history: arthritis, cancer (multiple myeloma), diabetes, GERD, hyperlipidemia, hypertension, other Additional medical history: sleep apnea. Psychiatric history: anxiety, depression - Past Surgical History Surgical History: appendectomy, cholecystectomy, hysterectomy, knee replacement, orthopedic, other Additional surgical history: BILATERAL KNEE REPLACEMENTS. LEFT ELBOW REPAIR - Social History Smoking Status: Former smoker Smokeless Tobacco Status: No Alcohol use: rarely Drug use: none - Family History Sister Hx Family Cardiac Disorders: Yes ([place]) Hx Family Cancer: Yes (Colon) Grandfather Hx Family Cardiac Disorders: Yes (Stroke) Medications and Allergies Atorvastatin [Lipitor] 10 mg PO HS 02/14/18 [History] Cholecalciferol (D-3) [Vitamin D] 2,000 unit PO DAILY 02/14/18 [History] Citalopram Hydrobromide [Citalopram HBr] 20 mg PO BID 02/14/18 [History] Fesoterodine Fumarate [Toviaz] 4 mg PO DAILY 02/14/18 [History] Furosemide [Lasix] 20 mg PO DAILY PRN 02/14/18 [History] Pantoprazole Sodium [Protonix] 40 mg PO DAILY 02/14/18 [History] Verapamil [Isoptin] 120 mg PO BID 02/14/18 [History] Vit C/E/Zn/Coppr/Lutein/Zeaxan [Preservision Areds 2 Softgel] 1 cap PO DAILY 02/14/18 [History] Ubidecarenone [Co Q10] 200 mg PO DAILY 02/24/18 [History] Ferrous Sulfate [Iron] 325 mg PO BID 03/08/18 [History] Cyanocobalamin (Vitamin B-12) [Vitamin B12] 1 tab PO DAILY #30 tablet 03/20/18 [Rx] Cyanocobalamin (B-12) [Vitamin B12] 1,000 mcg IM QMONTH #12 vial 03/24/18 [Rx] Ascorbic Acid [Vitamin C] 250 mg PO DAILY 05/30/18 [History] Dexamethasone [Decadron] 5 tab PO WE 05/30/18 [History] Metformin HCl 1,000 mg PO BID 05/30/18 [History] Cyanocobalamin (Vitamin B-12) [Vitamin B12] 1 tab PO DAILY #30 tablet 07/04/18 [Rx] Ondansetron HCl [Zofran] 1 tab PO Q6H PRN #30 tablet 07/04/18 [Rx] Prochlorperazine Maleate [Compazine] 1 tab PO Q6HR PRN #30 tablet 07/04/18 [Rx] Potassium Chloride [K-Tab ER] 10 meq PO BID #30 tablet.er 07/05/18 [Rx] Lenalidomide [Revlimid] 25 mg PO DAILY #14 capsule 07/17/18 [Rx] Allergy/AdvReac Type Severity Reaction Status Date / Time Amoxicillin [From Augmentin] Allergy Diarrhea Verified 06/16/18 09:09 clavulanic acid Allergy Diarrhea Verified 06/16/18 09:09 [From Augmentin] Sulfa (Sulfonamide Allergy Hives Verified 06/16/18 09:09 Antibiotics) All Systems: The remainder of the systems were reviewed and are negative - Constitutional Constitutional ROS IM: no chills, no fever(s), no headache(s) - Nose, Mouth, Throat Nose, mouth and throat: disequilibrium, dizziness, no headache(s) - Cardiovascular Cardiovascular ROS IM: no chest pain, no palpitations - Respiratory Respiratory IM: no cough, no dyspnea - Gastrointestinal Gastrointestinal: no abdominal pain, no nausea, no vomiting - Genitourinary Genitourinary ROS: no urinary frequency, no urinary urgency - Musculoskeletal Musculoskeletal ROS IM: numbness, tingling - Integumentary Integumentary IM: no new lesions, no rash - Neurological Neurological ROS: disequilibrium, dizziness, no confusion - Psychiatric Psychiatric general PM: no anxiety, no depression Physical Examination - Vital Signs Vital Signs: Initial Vital Signs Temp Pulse Resp BP Pulse Ox 98.4 F 104 22 150/84 97 07/17/18 20:54 07/17/18 20:54 07/17/18 20:54 07/17/18 20:54 07/17/18 20:54 - Constitutional General appearance: comfortable - Neurologic Sensorimotor examination: intact Detailed motor examination: grossly full strength in all extremities, full strength in all major muscle groups Motor examination - right side: 5: deltoids, biceps, triceps, wrist flexion, wrist extension, property worker, hip flexors, tibialis Anterior, quadriceps, toe extension (EHL), plantarflexion Motor examination - left side: 12/10: deltoids, biceps, triceps, wrist flexion, wrist extension, hip flexors, property worker, quadriceps, tibialis Anterior, toe extension (EHL), plantarflexion Detailed sensory examination: intact, light touch Reflex and gait examination: normal gait Reflexes: Biceps: 2+, Triceps: 2+, Brachioradialis: 2+, Patella: 2+, Achilles: 2+ Mental Status Examination: awake, alert, oriented to person, oriented to place, oriented to time, follows commands appropriately, answers questions appropriately, no agnosia, no aphasia, no aproxia Cranial nerve examination: PERRL, EOMI, visual lombardi intact, sensory to face intact, mastication intact, no facial asymmetry is present, no dysarthria, hearing is intact symmetrically, flexes SCM and trapezius muscles symmetrically with full power, tongue protrudes midline, no atrophy or facial fasiculations present Cerebellar examination: no dysmetria, performs finger to nose and heel to brown symmetrically without ataxia, no gait ataxia, no truncal ataxia, no difficulty with rapid alternating movements Results - Laboratory Findings CBC and BMP: 07/17/18 21:01 07/18/18 05:54 Abnormal lab findings: Abnormal lab results RDW 19.5 % (11.5-14.5) H 07/17/18 21:01 Plt Count 115 K/mcL (140-400) L 07/17/18 21:01 Nucleated RBCs/100 WBC 0.9 /100 WBC (0) H 07/17/18 21:01 Immature Plt Fraction 14.5 % (1.1-6.1) H 07/17/18 21:01 PT 12.6 Seconds (9.4-12.1) H 07/18/18 05:54 Potassium 3.0 mEq/L (3.5-5.1) L 07/18/18 05:54 Creatinine 0.54 mg/dL (0.60-1.20) L 07/18/18 05:54 Glucose 121 mg/dL (70-105) H 07/18/18 05:54 POC Glucose 126 mg/dL (70-99) H 07/17/18 20:56 Hemoglobin A1c 6.7 % (-5.6) H 07/18/18 05:54 Calcium 7.6 mg/dL (8.6-10.3) L 07/18/18 05:54 AST 12 Units/L (13-39) L 07/18/18 05:54 Troponin I 0.04 ng/mL (< 0.04) H* 07/18/18 05:54 Serum Total Protein 5.5 g/dL (6.4-8.9) L 07/18/18 05:54 Albumin 3.4 g/dL (3.5-5.7) L 07/18/18 05:54 Globulin 2.1 g/dL (2.4-3.5) L 07/18/18 05:54 HDL Cholesterol 71 mg/dL (40-59) H 07/18/18 05:54 Urine Clarity Cloudy (Clear) A 07/18/18 02:55 Ur Specific [place] 1.026 (1.010-1.025) H 07/18/18 02:55 Ur Leukocyte Esterase Large (Negative) H 07/18/18 02:55 Urine Microscopic WBC 5-15 per hpf (0-3) H 07/18/18 02:55 Ur Squamous Epith Cells Many per lpf (None-Few) H 07/18/18 02:55 Urine Bacteria Many per hpf (None-Few) H 07/18/18 02:55 Ur Culture Indicated? NO. (NO) A 07/18/18 02:55 - Diagnostic Findings Additional findings: ITS Impressions Head CT 07/17/18 21:10 IMPRESSION: No acute intracranial abnormality. Severe chronic microangiopathic ischemic changes of cerebral white matter. Remote lacunar infarcts of the thalami and basal ganglia. As directed clinically, consider correlation with MRI brain to exclude occult acute on chronic ischemia given background of extensive chronic ischemic changes. D/ / Steven Noguera / Steven Noguera Interpreting Provider: Steven Noguera Chest X-Ray 07/17/18 21:11 IMPRESSION: No acute process. D/ / Fermin Mckeon MD / Fermin Mckeon MD Interpreting Provider: Fermin Mckeon MD Head CTA 07/17/18 22:37 IMPRESSION: CTA of the head and neck without acute arterial abnormality. Osseous demineralization with multiple lucent foci within the calvarium possibly representing venous lakes or multiple myeloma in the current clinical setting. D/ / Steven Noguera / Steven Noguera Interpreting Provider: Steven Noguera Neck CTA 07/17/18 22:37 IMPRESSION: CTA of the head and neck without acute arterial abnormality. Osseous demineralization with multiple lucent foci within the calvarium possibly representing venous lakes or multiple myeloma in the current clinical setting. D/ / Steven Noguera / Stveen Noguera Interpreting Provider: Steven Noguera Brain MRI 07/18/18 01:48 IMPRESSION: 1. Acute lacunar infarcts are seen within the left thalamus and left parietal periventricular white matter. No significant mass effect or midline shift. 2. No acute infarct is seen within the cerebellar hemispheres. 3. Moderate chronic microvascular ischemic changes. These results were sent to the [facility] ([facility]) on 07/18/2018 at 9:20 am to be communicated to the referring/covering health care provider/office. D/ / Goldy Echevarria MD / Goldy Echevarria MD Interpreting Provider: Goldy Echevarria MD Consult Discharge Plan - Plan Referrals: Karthikeyan Quinones MD [Primary Care Provider] - <Chaparro Rudd - Last Filed: 07/18/18 18:58> Date of Encounter: 07/18/18 Time of Encounter: 18:53 Assessment and Plan (1) CVA (cerebral vascular accident) Current Visit: Yes Status: Acute I agree with the neurology resident's assessment as stated above. Patient does have stroke risk factors namely hypertension as well as diabetes. The location of the infarct leads to small vessel events as a result of these risk factors. CTA of the head and neck were also unremarkable. I agree with aggressive risk factor management, which would include antihypertensives and statin therapy. She should maintain aspirin 325 mg daily. Echocardiogram is yet pending. I am doubtful however that this is secondary to a cardioembolic event. She will likely not need physical therapy at this juncture. I will reevaluate her at your request. Qualifiers: CVA mechanism: unspecified Qualified Code(s): I63.9 - Cerebral infarction, unspecified History of Present Illness HPI: The chart was reviewed, the patient was seen and examined along with the neurology resident.. I agree with the neurology resident's assessment as stated above. I did review the MRI scan of the brain personally which does reveal an acute infarct in the left thalamus also in the left parietal deep white matter. All Systems: The remainder of the systems were reviewed and are negative Review of Systems: The balance of the systems review is negative. Physical Examination - Vital Signs Vital Signs: Initial Vital Signs Temp Pulse Resp BP Pulse Ox 98.4 F 104 22 150/84 97 07/17/18 20:54 07/17/18 20:54 07/17/18 20:54 07/17/18 20:54 07/17/18 20:54 - Neurologic Detailed motor examination: full strength in all major muscle groups Motor examination - right side: 5/5: deltoids, biceps, triceps, wrist flexion, wrist extension, property worker, hip flexors, tibialis Anterior, quadriceps, toe extension (EHL), plantarflexion Motor examination - left side: 5/5: deltoids, biceps, triceps, wrist flexion, wrist extension, hip flexors, property worker, quadriceps, tibialis Anterior, toe extension (EHL), plantarflexion Mental Status Examination: awake, alert, oriented to person, oriented to place, oriented to time, follows commands appropriately, answers questions appropriately, no agnosia, no aphasia, no aproxia Cranial nerve examination: PERRL, EOMI, visual lombardi intact, corneal reflexes brisk symmetrically, sensory to face intact, mastication intact, no facial asymmetry is present, no dysarthria, hearing is intact symmetrically, soft palate elevates bilaterally upon phonation, gag reflex intact, flexes SCM and trapezius muscles symmetrically with full power, tongue protrudes midline, no atrophy or facial fasiculations present Cerebellar examination: no dysmetria, performs finger to nose and heel to brown symmetrically without ataxia, no gait ataxia, no truncal ataxia, no difficulty with rapid alternating movements Results - Laboratory Findings CBC and BMP: 07/17/18 21:01 07/18/18 05:54 Abnormal lab findings: Abnormal lab results RDW 19.5 % (11.5-14.5) H 07/17/18 21:01 Plt Count 115 K/mcL (140-400) L 07/17/18 21:01 Nucleated RBCs/100 WBC 0.9 /100 WBC (0) H 07/17/18 21:01 Immature Plt Fraction 14.5 % (1.1-6.1) H 07/17/18 21:01 PT 12.6 Seconds (9.4-12.1) H 07/18/18 05:54 Potassium 3.0 mEq/L (3.5-5.1) L 07/18/18 05:54 Creatinine 0.54 mg/dL (0.60-1.20) L 07/18/18 05:54 Glucose 121 mg/dL (70-105) H 07/18/18 05:54 POC Glucose 121 mg/dL (70-99) H 07/18/18 14:43 Hemoglobin A1c 6.7 % (-5.6) H 07/18/18 05:54 Calcium 7.6 mg/dL (8.6-10.3) L 07/18/18 05:54 AST 12 Units/L (13-39) L 07/18/18 05:54 Troponin I 0.04 ng/mL (< 0.04) H* 07/18/18 05:54 Serum Total Protein 5.5 g/dL (6.4-8.9) L 07/18/18 05:54 Albumin 3.4 g/dL (3.5-5.7) L 07/18/18 05:54 Globulin 2.1 g/dL (2.4-3.5) L 07/18/18 05:54 HDL Cholesterol 71 mg/dL (40-59) H 07/18/18 05:54 Urine Clarity Cloudy (Clear) A 07/18/18 02:55 Ur Specific [place] 1.026 (1.010-1.025) H 07/18/18 02:55 Ur Leukocyte Esterase Large (Negative) H 07/18/18 02:55 Urine Microscopic WBC 5-15 per hpf (0-3) H 07/18/18 02:55 Ur Squamous Epith Cells Many per lpf (None-Few) H 07/18/18 02:55 Urine Bacteria Many per hpf (None-Few) H 07/18/18 02:55 Ur Culture Indicated? NO. (NO) A 07/18/18 02:55
[2018-07-19] MEDS: *HR* Heparin 5,000 UNIT/ML VIAL SQ SCH (05:02)
[2018-07-19] MEDS: Insulin LISPRO 300 UNITS/3 ML VIAL SQ SCH ×2 (08:28→13:15)
[2018-07-19] MEDS: Aspirin 325 MG TABLET PO SCH (08:31)
[2018-07-19 11:22] VITALS: BP 149/75
--- NOTE | 2018-07-19 15:00 | Discharge Summary ---
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 Wayne is a 73 year old female who presented 07/17/18 with paresthesias as well as R UE paresthesias, RLE weakness and disequilibrium. MRI findings reveals acutely lacunar infarcts in the left, some left parietal periventricular white matter. Given her LKW she was outside of window for TPA. Neurology was consulted. Patient was started on 325 mg of aspirin daily as well as 40 mg of simvastatin every evening. Symptoms are continuing to improve and she is without neurological deficits. PT/OT has seen on day of discharge without any recommendations for continued physical therapy. She is instructed to adhere to lifestyle modifications and to continue taking the previously stated prescription. She has been instructed to follow-up with PCP within 1 week of discharge and to follow-up with neurology in 7-10 days of discharge. Additionally, she is instructed to return to the ED should she began to experience signs or symptoms of stroke. Discharge discussed with: patient, family, nurse - Time Spent with Patient Total time spent providing and/or coordinating discharge services: Less than 30 minutes - Discharge Medications Prescriptions: Aspirin 325 mg PO DAILY 30 Days #30 tablet Atorvastatin [Lipitor] 40 mg PO HS 30 Days #30 tablet Home Medications: Cholecalciferol (D-3) [Vitamin D] 1,000 unit PO DAILY 02/14/18 [History] Citalopram Hydrobromide [Citalopram HBr] 20 mg PO BID 02/14/18 [History] Fesoterodine Fumarate [Toviaz] 4 mg PO DAILY 02/14/18 [History] Furosemide [Lasix] 20 mg PO DAILY PRN 02/14/18 [History] Pantoprazole Sodium [Protonix] 40 mg PO DAILY 02/14/18 [History] Verapamil [Isoptin] 120 mg PO BID 02/14/18 [History] Vit C/E/Zn/Coppr/Lutein/Zeaxan [Preservision Areds 2 Softgel] 1 cap PO DAILY 02/14/18 [History] Ubidecarenone [Co Q10] 200 mg PO DAILY 02/24/18 [History] Cyanocobalamin (Vitamin B-12) [Vitamin B12] 1 tab PO DAILY #30 tablet 03/20/18 [Rx] Cyanocobalamin (B-12) [Vitamin B12] 1,000 mcg IM QMONTH #12 vial 03/24/18 [Rx] Ascorbic Acid [Vitamin C] 250 mg PO DAILY 05/30/18 [History] Dexamethasone [Decadron] 5 tab PO WE 05/30/18 [History] Metformin HCl 1,000 mg PO BID 05/30/18 [History] Ondansetron HCl [Zofran] 1 tab PO Q6H PRN #30 tablet 07/04/18 [Rx] Prochlorperazine Maleate [Compazine] 1 tab PO Q6HR PRN #30 tablet 07/04/18 [Rx] Potassium Chloride [K-Tab ER] 10 meq PO BID #30 tablet.er 07/05/18 [Rx] Lenalidomide [Revlimid] 25 mg PO DAILY #14 capsule 07/17/18 [Rx] Aspirin 325 mg PO DAILY 30 Days #30 tablet 07/19/18 [Rx] Atorvastatin [Lipitor] 40 mg PO HS 30 Days #30 tablet 07/19/18 [Rx] Allergies/Adverse Reactions: Allergy/AdvReac Type Severity Reaction Status Date / Time Amoxicillin [From Augmentin] Allergy Diarrhea Verified 07/19/18 13:58 clavulanic acid Allergy Diarrhea Verified 07/19/18 13:58 [From Augmentin] Sulfa (Sulfonamide Allergy See Verified 07/19/18 13:58 Antibiotics) Comments Date of admission: 07/18/18 01:24 Primary care physician: Karthikeyan Quinones MD Consults: 07/18/18 09:33 Consult to Neurology [CONS] Routine Consulting Provider: Neurology [facility] Reason for Consult: Acute lacunar infarcts see within the left thalamus and left parietal periventricular white matter Time Notified: 09:34 Call Completed: Yes 07/18/18 13:52 Consult to Physical Therapy [CONS] Routine Comment: Evaluate, develop and implement POC Reason for Consult: CVA Does patient have active BEDREST order?: No Is patient medically & hemodynamically stable?: Yes Patient assessed for mobility or mobilized this visit?: No OT [Consult to Occupational Therapy] [CONS] Routine Comment: Evaluate, develop and implement POC Reason for Consult: CVA Does patient have active BEDREST order?: No Is patient medically & hemodynamically stable?: Yes Patient assessed for mobility or mobilized this visit?: No Discharging clinician: Darrin Napoles Anticipated date of discharge: 07/19/18 - Constitutional Vitals: Temp Pulse Resp BP Pulse Ox 98.1 F 89 18 149/75 96 07/19/18 11:22 07/19/18 11:22 07/19/18 11:22 07/19/18 11:22 07/19/18 11:22 General appearance: Present: cooperative, A&O X 3, pleasant, answers questions appropriately Exam: PHYSICAL EXAMINATION: GENERAL: The patient is an elderly obese female, NAD, a and O 3 HEENT: Head is normocephalic and atraumatic. Extraocular muscles are intact. Pupils are equal, round, and reactive to light and accommodation. NECK: Supple. No carotid bruits. No lymphadenopathy or thyromegaly. LUNGS: Clear to auscultation B/L AP and L. HEART: Regular rate and rhythm, S1, S2 without murmurs, rubs or gallops. ABDOMEN: Soft, nontender, and nondistended. Positive bowel sounds. No hepatosplenomegaly was noted. EXTREMITIES: Without any cyanosis, clubbing, rash, lesions or edema. NEUROLOGIC: MENTAL STATUS: AAOx3, LANG/SPEECH: fluent, follows 3-step commands CRANIAL NERVES: II: Pupils equal and reactive, no RAPD, no VF deficits III, IV, : EOM intact, no gaze preference or deviation, no nystagmus. V: normal sensation in LT V1, V2, and V3 segments bilaterally, abnormal on RT with perioral numbness and tingling VII: no asymmetry, no nasolabial fold flattening VIII: normal hearing to speech IX, X: normal palatal elevation, no uvular deviation XI: 5/5 head turn and 5/5 shoulder shrug bilaterally XII: midline tongue protrusion MOTOR: 5/5 muscle power in Rt shoulder abductors/adductors, elbow flexors/extensors, 5/5 in Rt hip flexors/extensors, knee flexors/extensors, ankle dorsiflexors and planter flexors. 5/5 muscle power in Lt shoulder abductors/adductors, elbow flexors/extensors, 5/5 in Lt hip flexors/extensors, knee flexors/extensors, ankle dorsiflexors and planter flexors. SENSORY: Abnormal to touch (right perioral and right hand paresthesias) No hemineglect, no extinction to double sided stimulation (visual & tactile) Romberg absent COORD: Normal finger to nose, no dysmetria STATION: normal stance, no truncal ataxia GAIT: Unable to tip-toe, d/t disequilibrium with ambulation PSYCHIATRIC: Appropriate affect SKIN: No ulceration or induration present. - Patient Status Disposition: Home, Self-Care Condition: Fair Functional capacity at discharge: independent ambulation Overall status at discharge: patient is progressing back to baseline - Discharge Instructions Follow Up With: Karthikeyan Quinones MD [Primary Care Provider] - - Diet and Activity Activity: increase activity as tolerated, resume usual activities as tolerated Diet: diabetic diet, low fat, low cholesterol, low salt diet
--- NOTE | 2018-07-20 09:06 | Electrocardiograph Report ---
[address] [address] Test Date: 2018-07-17 Pat Name: Rachael Wayne Department: EXAMC3 Room: 3B Gender: Client Delivery Specialist: : 1945 Requested By: Henrique Kenyon Order Number: [id number] Reading MD: Vasquez Olson Measurements Intervals [place]oy Rate: 87 P: 83 WY: 139 QRS: -34 QRSD: 90 T: 80 QT: 422 QTc: 508 Interpretive Statements Sinus rhythm Right atrial enlargement Probable left ventricular hypertrophy Prolonged QT interval Electronically Signed On 07-20-2018 9:04:16 EST by Vasquez Olson
--- NOTE | 2018-07-20 12:01 | Physician Discharge Referral ---
Home Health/Hosp Referral Info Transfer to: Home Health Provider in Charge Post Discharge: PCP - Diagnosis (1) CVA (cerebral vascular accident) Priority: Primary Status: Acute (2) Diabetes type 2, controlled Priority: Secondary Status: Chronic (3) Multiple myeloma Priority: Secondary Status: Chronic (4) Dizziness Priority: Secondary Status: Acute - Respiratory Orders Smoking Cessation: Smoking cessation has been advised. For more information, call the [place] Tobacco Quit Line at 9-712-DYOB-NOW. - Diet/Nutrition Diet/Nutrition Orders: No Added Salt (DENILSON), Cardiac, No Concentrated Sweets - Services Needed Following services are medically necessary services: Physical Therapy, Occupational Therapy - Transfer Medications Prescriptions: Aspirin 325 mg PO DAILY 30 Days #30 tablet Atorvastatin [Lipitor] 40 mg PO HS 30 Days #30 tablet Home Medications: Cholecalciferol (D-3) [Vitamin D] 1,000 unit PO DAILY 02/14/18 [History] Citalopram Hydrobromide [Citalopram HBr] 20 mg PO BID 02/14/18 [History] Fesoterodine Fumarate [Toviaz] 4 mg PO DAILY 02/14/18 [History] Furosemide [Lasix] 20 mg PO DAILY PRN 02/14/18 [History] Pantoprazole Sodium [Protonix] 40 mg PO DAILY 02/14/18 [History] Verapamil [Isoptin] 120 mg PO BID 02/14/18 [History] Vit C/E/Zn/Coppr/Lutein/Zeaxan [Preservision Areds 2 Softgel] 1 cap PO DAILY 02/14/18 [History] Ubidecarenone [Co Q10] 200 mg PO DAILY 02/24/18 [History] Cyanocobalamin (Vitamin B-12) [Vitamin B12] 1 tab PO DAILY #30 tablet 03/20/18 [Rx] Cyanocobalamin (B-12) [Vitamin B12] 1,000 mcg IM QMONTH #12 vial 03/24/18 [Rx] Ascorbic Acid [Vitamin C] 250 mg PO DAILY 05/30/18 [History] Dexamethasone [Decadron] 20 mg PO QWEEK 05/30/18 [History] Metformin HCl 1,000 mg PO BID 05/30/18 [History] Ondansetron HCl [Zofran] 1 tab PO Q6H PRN #30 tablet 07/04/18 [Rx] Prochlorperazine Maleate [Compazine] 1 tab PO Q6HR PRN #30 tablet 07/04/18 [Rx] Potassium Chloride [K-Tab ER] 10 meq PO BID #30 tablet.er 07/05/18 [Rx] Lenalidomide [Revlimid] 25 mg PO DAILY #14 capsule 07/17/18 [Rx] Aspirin 325 mg PO DAILY 30 Days #30 tablet 07/19/18 [Rx] Atorvastatin [Lipitor] 40 mg PO HS 30 Days #30 tablet 07/19/18 [Rx] Bortezomib [Velcade] 1.3 mg SQ AD 07/19/18 [History] Zoledronic Acid/Mannitol-Water [Zometa 4 mg/100 ml Injection] 4 mg IV AD 07/19/18 [History] Allergies/Adverse Reactions: Allergy/AdvReac Type Severity Reaction Status Date / Time Amoxicillin [From Augmentin] Allergy Diarrhea Verified 07/19/18 13:58 clavulanic acid Allergy Diarrhea Verified 07/19/18 13:58 [From Augmentin] Sulfa (Sulfonamide Allergy See Verified 07/19/18 13:58 Antibiotics) Comments Certification: Further, I certify that my clinical findings support that this patient is homebound (i.e. absences from home require considerable and taxing effort and are for medical reasons or orthodoxy services or infrequently or short duration when for other reasons) because: Homebound Reason: Patient requires assistance of a person or device to safely leave home Attestation: My signature below is to certify that this patient is under my care and that I, or nurse practitioner, or a physician's medical assistant instructor working with me, has a [id number] encounter with this patient.
== END 2018-07-19 16:02 | disposition home or self-care (01) ==
LOC: 3BNU 20:51 → EMEROOARM 20:51 → 3BNU 07-18 01:48
PROVIDERS: ADMIT Internal Medicine; ATTEND Internal Medicine

== ENCOUNTER 2018-08-07 11:58 | Observation (INO) ==
--- NOTE | 2018-08-07 12:07 | Emergency Department Note ---
Disposition Clinical Impression: Lactic acidosis Abdominal pain Qualifiers: Abdominal location: unspecified location Qualified Code(s): R10.9 - Unspecified abdominal pain Disposition: Still a Patient Condition: Fair Referrals: Karthikeyan Quinones MD [Partnered Physician] - Forms: ED Satisfaction Letter, Work/School Release Abdominal Pain HPI - General Chief Complaint: ED Abdominal Pain Stated Complaint: contipation/vomiting Time Seen by Provider: 08/07/18 12:06 Source: patient Mode of arrival: ambulatory Limitations: no limitations Nursing Notes Reviewed: Yes Vital Signs Reviewed: Yes - History of Present Illness HPI Narrative: 73-year-old female presents to the emergency department complaining of constipation as well as vomiting. Patient does not history of multiple myelomas currently on chemotherapy which was changed partly 2 weeks ago. Said that she has not had a bowel movement since last Tuesday which is now at 8 days. She said she started multiple things including MiraLAX, Maalox, milk of magnesia, she did try 2 enemas last night unable to move anything neck suture rectal stimulation as well. Patient said that the abdominal pain is getting too much. She has had multiple surgeries including hysterectomy and lysis of adhesions. Otherwise there is no other complaints at this time she is not been passing any gas. There has no fevers, chills, headache, blurry vision, neck pain, back pain, chest pain, shortness of breath, no pain with urination. Here in any arms or legs or generalized weakness. Pain Scale: 8 - Related Data Home Medications Medication Instructions Recorded Confirmed Cholecalciferol (D-3) [Vitamin D] 1,000 unit PO DAILY 02/14/18 07/25/18 Citalopram Hydrobromide 20 mg PO BID 02/14/18 07/25/18 [Citalopram HBr] Fesoterodine Fumarate [Toviaz] 4 mg PO DAILY 02/14/18 07/25/18 Furosemide [Lasix] 20 mg PO DAILY PRN 02/14/18 07/25/18 Pantoprazole Sodium [Protonix] 40 mg PO DAILY 02/14/18 07/25/18 Verapamil [Isoptin] 120 mg PO BID 02/14/18 07/25/18 Vit C/E/Zn/Coppr/Lutein/Zeaxan 1 cap PO DAILY 02/14/18 07/25/18 [Preservision Areds 2 Softgel] Ubidecarenone [Co Q10] 200 mg PO DAILY 02/24/18 07/25/18 Ascorbic Acid [Vitamin C] 250 mg PO DAILY 05/30/18 07/25/18 Dexamethasone [Decadron] 20 mg PO QWEEK 05/30/18 07/25/18 Metformin HCl 1,000 mg PO BID 05/30/18 07/25/18 Bortezomib [Velcade] 1.3 mg SQ AD 07/19/18 07/25/18 Zoledronic Acid/Mannitol-Water 4 mg IV AD 07/19/18 07/25/18 [Zometa 4 mg/100 ml Injection] Previous Rx's Medication Instructions Recorded Cyanocobalamin (Vitamin B-12) 1 tab PO DAILY #30 tablet 03/20/18 [Vitamin B12] Cyanocobalamin (B-12) [Vitamin B12] 1,000 mcg IM QMONTH #12 vial 03/24/18 Ondansetron HCl [Zofran] 1 tab PO Q6H PRN #30 tablet 07/04/18 Prochlorperazine Maleate 1 tab PO Q6HR PRN #30 tablet 07/04/18 [Compazine] Potassium Chloride [K-Tab ER] 10 meq PO BID #30 tablet.er 07/05/18 Aspirin 325 mg PO DAILY 30 Days #30 tablet 07/19/18 Atorvastatin [Lipitor] 40 mg PO HS 30 Days #30 tablet 07/19/18 Polyethylene Glycol 3350 [MiraLAX] 17 gm PO DAILY #30 powd.pack 08/07/18 Allergies Allergy/AdvReac Type Severity Reaction Status Date / Time Amoxicillin [From Augmentin] Allergy Diarrhea Verified 07/25/18 09:17 clavulanic acid Allergy Diarrhea Verified 07/25/18 09:17 [From Augmentin] Sulfa (Sulfonamide Allergy See Verified 07/25/18 09:17 Antibiotics) Comments All systems ED: reviewed and negative except as stated. Review of Systems: As Per HPI Abdominal Pain PMH - Past Medical History Medical history: Reports: arthritis, cancer (multiple myeloma), diabetes, GERD, hyperlipidemia, hypertension, other Female Surgical History: Reports: appendectomy, cholecystectomy, hysterectomy, knee replacement, orthopedic, other, other Psychiatric history: Reports: anxiety, depression - Social History Smoking status: Former smoker Alcohol use: Reports: rarely Drug use: Reports: none Physical Exam - General Limitations: no limitations General appearance: alert, in no apparent distress - Head Head exam: atraumatic, normocephalic, normal inspection - Eye Eye exam: Present: normal appearance, PERRL, EOMI - ENT ENT exam: normal exam, normal oropharynx, mucous membranes moist - Neck Neck exam: Present: normal inspection, full ROM, trachea midline - Chest Chest inspection: Present: normal inspection, symmetric chest wall rise - Respiratory Respiratory exam: Present: normal lung sounds bilaterally - Cardiovascular Cardiovascular exam: Present: regular rate, normal rhythm, normal heart sounds - Abdominal Exam Abdominal exam: Present: soft, tenderness (Generalized tenderness), distention, normal bowel sounds. Absent: guarding, rebound, rigidity - Extremities Exam Extremities exam: Present: normal inspection, full ROM. Absent: tenderness, pedal edema - Back Exam Back exam: Present: normal inspection, full ROM. Absent: tenderness, CVA tenderness (R), CVA tenderness (L) - Neurological Exam Neurological exam: Present: alert, oriented X3 - Skin Skin exam: Present: warm, dry, intact, normal color Course Course Narrative: We will get BMP, CBC as well as a CT abdomen and pelvis without contrast to rule out rule out any signs of obstruction. We have patient IV fluids and Zofran for nausea. Patient okay with this plan. Disposition pending results and further testing pending results. - Consultations Consultation #1: Patient's CT came back reading with a mass in the right lower quadrant I called the on-call general surgeon Dr. Greer who recommended CT scan with oral contrast no IV. This was ordered at this time. Disposition pending results of that and to call him back. I also got an ultrasound of the abdomen and pelvis transvaginally to look at the mass to see if this is ovarian or cecal in etiology. Time: 17:00 Vital Signs Temperature 98.0 F 08/07/18 12:02 Pulse Rate 105 08/07/18 12:02 Respiratory Rate 16 08/07/18 12:02 Blood Pressure 146/89 08/07/18 12:02 O2 Sat by Pulse Oximetry 96 08/07/18 12:02 Temperature 97.7 F 08/07/18 16:33 Pulse Rate 84 08/07/18 16:33 Respiratory Rate 18 08/07/18 16:33 Blood Pressure 183/100 08/07/18 16:33 O2 Sat by Pulse Oximetry 99 08/07/18 16:33 Oxygen Delivery Oxygen Delivery Room Air Abdominal Pain - MDM Narrative Medical decision making narrative: Patient presented here with history of multiple myeloma for constipation. CT abdomen and pelvis with contrast did show possible mass in the cecum area. This is unsure if it is ovarian versus pericecal. Due to this I spoke with the surgeon who recommended CT I am and pelvis with oral contrast. This was ordered. I also ordered transvaginal ultrasound to get better view of the mass to see if it is ovarian in etiology. Both of these are still pending at this time. Patient did have a elevated lactate did get IV fluids patient also is given Zofran for pain control was did help. All other labs were within normal as there was no leukocytosis. Patient most likely will be admitted but pending the results of the scans patient may need transferred up to [facility] for further evaluation due to not having gynecology in case is ovarian in etiology. Patient will be signed out to the night team doctor Cesilia please see their note for further disposition. - Medical Records Medical records reviewed: Yes I reviewed the patient's medical records. - Lab Data Lab results reviewed: Yes I reviewed the patient's lab results. Result diagrams: 08/07/18 13:52 08/07/18 13:52 Lab Results 08/07/18 08/07/18 08/07/18 Range/Units 13:52 13:52 14:01 WBC 9.7 (4.3-11.1) K/mcL RBC 4.12 (3.82-4.97) M/mcL Hgb 12.5 (11.5-15.4) g/dL Hct 37.8 (35.3-44.9) % MCV 91.7 (83.0-100.0) fL MCH 30.3 (28.0-33.3) pg MCHC 33.1 (31.6-35.5) g/dL RDW 19.0 H (11.5-14.5) % Plt Count 232 (140-400) K/mcL MPV 10.9 (9.4-12.4) fL Immature Gran % 0.8 (0-4) % Seg Neutrophils % 68.7 % Lymphocytes % 17.8 % Monocytes % 12.1 % Eosinophils % 0.2 % Basophils % 0.4 % Neutrophils # 6.7 (1.6-8.9) K/mcL Lymphocytes # 1.7 (0.6-4.6) K/mcL Monocytes # 1.2 (0.0-1.3) K/mcL Eosinophils # 0.0 (0.0-0.6) K/mcL Basophils # 0.0 (0.0-0.2) K/mcL Nucleated RBCs/100 WBC 0.2 H (0) /100 WBC Sodium 138 (136-145) mEq/L Potassium 3.5 (3.5-5.1) mEq/L Chloride 99 (98-107) mEq/L Carbon Dioxide 27 (23-29) mEq/L BUN 14 (8-23) mg/dL Creatinine 0.87 (0.60-1.20) mg/dL Est GFR ( Amer) > 60 (> 60) Est GFR (Non-Af Amer) > 60 (> 60) BUN/Creatinine Ratio 16 (6-26) Glucose 106 H (70-105) mg/dL Calculated Osmolality 287 (280-300) Lactic Acid 4.2 H* (0.5-2.2) mmol/L Calcium 9.7 (8.6-10.3) mg/dL Total Bilirubin 0.5 (0.3-1.0) mg/dL AST 14 (13-39) Units/L ALT 11 (7-52) Units/L Alkaline Phosphatase 75 (34-104) Units/L Troponin I < 0.03 (< 0.04) ng/mL Serum Total Protein 6.5 (6.4-8.9) g/dL Albumin 4.0 (3.5-5.7) g/dL Globulin 2.5 (2.4-3.5) g/dL Albumin/Globulin Ratio 1.6 (1.1-2.2) Lipase 14 (11-82) Units/L - Radiology Data Radiology results reviewed: Yes I reviewed the patient's radiology results. - EKG Data EKG attestation: Yes I reviewed and interpreted this EKG. EKG results narrative: EKG done at 1513 review myself and attending shows sinus rhythm at a rate of 87, MN interval 156, QRS 94, QTc C5 24. Is no acute ST changes no acute T-wave changes no other signs of ischemia. No hypertrophy, heart strain, heart block. No WPW/Brugada/HOCM. EKG unchanged when compared with old one done
[2018-08-07] MEDS ORDERED: 0.9 % Sodium Chloride 1,000 ML IVC ONE (13:53)
[2018-08-07] MEDS ORDERED: Ondansetron 4 MG/2 ML VIAL IVP ONE (13:53)
[2018-08-07 14:12] LABS: Basophils % 0.4 %; Eosinophils % 0.2 %; Hematocrit 37.8 % (35.3-44.9); Hemoglobin 12.5 g/dL (11.5-15.4); Immature Granulocytes % 0.8 % (0-4); Lymphocytes # 1.7 K/mcL (0.6-4.6); Lymphocytes % 17.8 %; Mean Corpuscular HGB Conc 33.1 g/dL (31.6-35.5); Mean Corpuscular Hemoglobin 30.3 pg (28.0-33.3); Mean Corpuscular Volume 91.7 fL (83.0-100.0); Mean Platelet Volume 10.9 fL (9.4-12.4); Monocytes # 1.2 K/mcL (0.0-1.3); Monocytes % 12.1 %; Neutrophils # 6.7 K/mcL (1.6-8.9); Nucleated Red Blood Cells 0.2 /100 WBC (0); Platelet Count 232 K/mcL (140-400); Red Blood Count 4.12 M/mcL (3.82-4.97); Segmented Neutrophils % 68.7 %
[2018-08-07 14:49] LABS: Alanine Aminotransferase 11 Units/L (7-52); Albumin/Globulin Ratio 1.6 (1.1-2.2); Alkaline Phosphatase 75 Units/L (34-104); Aspartate Amino Transferase 14 Units/L (13-39); BUN/Creatinine Ratio 16 (6-26); Bilirubin,Total 0.5 mg/dL (0.3-1.0); Blood Urea Nitrogen 14 mg/dL (8-23); Calcium 9.7 mg/dL (8.6-10.3); Carbon Dioxide 27 mEq/L (23-29); Chloride 99 mEq/L (98-107); Globulin 2.5 g/dL (2.4-3.5); Glucose 106 mg/dL (70-105); Lipase 14 Units/L (11-82); Osmolality,Calculated 287 (280-300); Potassium 3.5 mEq/L (3.5-5.1); Sodium 138 mEq/L (136-145); Total Protein 6.5 g/dL (6.4-8.9); eGFR For Non-African Americans > 60 (> 60)
[2018-08-07] MEDS ORDERED: Isovue-370 500 ML INFUS..BTL IV ONE (14:49)
[2018-08-07 15:09] LABS: Troponin I < 0.03 ng/mL (< 0.04)
[2018-08-07] MEDS ORDERED: *HR* Morphine 2 MG/ML SYRINGE IVP ONE (15:26)
--- NOTE | 2018-08-07 15:48 | Emergency Department Note ---
Disposition Clinical Impression: Lactic acidosis Abdominal pain Qualifiers: Abdominal location: unspecified location Qualified Code(s): R10.9 - Unspecified abdominal pain Disposition: Still a Patient Forms: ED Satisfaction Letter, Work/School Release General Adult HPI - General Chief complaint: ED Abdominal Pain Stated complaint: contipation/vomiting Time Seen by Provider: 08/07/18 12:06 Source: patient Mode of arrival: ambulatory Limitations: no limitations - History of Present Illness Pain Scale: 8 - Related Data Home Medications Medication Instructions Recorded Confirmed Cholecalciferol (D-3) [Vitamin D] 1,000 unit PO DAILY 02/14/18 07/25/18 Citalopram Hydrobromide 20 mg PO BID 02/14/18 07/25/18 [Citalopram HBr] Fesoterodine Fumarate [Toviaz] 4 mg PO DAILY 02/14/18 07/25/18 Furosemide [Lasix] 20 mg PO DAILY PRN 02/14/18 07/25/18 Pantoprazole Sodium [Protonix] 40 mg PO DAILY 02/14/18 07/25/18 Verapamil [Isoptin] 120 mg PO BID 02/14/18 07/25/18 Vit C/E/Zn/Coppr/Lutein/Zeaxan 1 cap PO DAILY 02/14/18 07/25/18 [Preservision Areds 2 Softgel] Ubidecarenone [Co Q10] 200 mg PO DAILY 02/24/18 07/25/18 Ascorbic Acid [Vitamin C] 250 mg PO DAILY 05/30/18 07/25/18 Dexamethasone [Decadron] 20 mg PO QWEEK 05/30/18 07/25/18 Metformin HCl 1,000 mg PO BID 05/30/18 07/25/18 Bortezomib [Velcade] 1.3 mg SQ AD 07/19/18 07/25/18 Zoledronic Acid/Mannitol-Water 4 mg IV AD 07/19/18 07/25/18 [Zometa 4 mg/100 ml Injection] Previous Rx's Medication Instructions Recorded Cyanocobalamin (Vitamin B-12) 1 tab PO DAILY #30 tablet 03/20/18 [Vitamin B12] Cyanocobalamin (B-12) [Vitamin B12] 1,000 mcg IM QMONTH #12 vial 03/24/18 Ondansetron HCl [Zofran] 1 tab PO Q6H PRN #30 tablet 07/04/18 Prochlorperazine Maleate 1 tab PO Q6HR PRN #30 tablet 07/04/18 [Compazine] Potassium Chloride [K-Tab ER] 10 meq PO BID #30 tablet.er 07/05/18 Aspirin 325 mg PO DAILY 30 Days #30 tablet 07/19/18 Atorvastatin [Lipitor] 40 mg PO HS 30 Days #30 tablet 07/19/18 Polyethylene Glycol 3350 [MiraLAX] 17 gm PO DAILY #30 powd.pack 08/07/18 Allergies Allergy/AdvReac Type Severity Reaction Status Date / Time Amoxicillin [From Augmentin] Allergy Diarrhea Verified 07/25/18 09:17 clavulanic acid Allergy Diarrhea Verified 07/25/18 09:17 [From Augmentin] Sulfa (Sulfonamide Allergy See Verified 07/25/18 09:17 Antibiotics) Comments Past Medical History - Past Medical History Medical history: Reports: arthritis, cancer (multiple myeloma), diabetes, GERD, hyperlipidemia, hypertension, other Surgical history: Reports: appendectomy, cholecystectomy, hysterectomy, knee replacement, orthopedic, other Psychiatric history: Reports: anxiety, depression - Social History Smoking Status: Former smoker Smokeless Tobacco Status: No Alcohol use: Reports: rarely Drug use: Reports: none Physical Exam - General Limitations: no limitations General appearance: alert, in no apparent distress Course Vital Signs Temperature 98.0 F 08/07/18 12:02 Pulse Rate 105 08/07/18 12:02 Respiratory Rate 16 08/07/18 12:02 Blood Pressure 146/89 08/07/18 12:02 O2 Sat by Pulse Oximetry 96 08/07/18 12:02 Temperature 98.2 F 08/07/18 14:10 Pulse Rate 89 08/07/18 14:10 Respiratory Rate 20 08/07/18 14:10 Blood Pressure 174/102 08/07/18 14:10 O2 Sat by Pulse Oximetry 95 08/07/18 14:10 Oxygen Delivery Oxygen Delivery Room Air Medical Decision Making - Lab Data Result diagrams: 08/07/18 13:52 08/07/18 13:52 Lab Results 08/07/18 08/07/18 08/07/18 Range/Units 13:52 13:52 14:01 WBC 9.7 (4.3-11.1) K/mcL RBC 4.12 (3.82-4.97) M/mcL Hgb 12.5 (11.5-15.4) g/dL Hct 37.8 (35.3-44.9) % MCV 91.7 (83.0-100.0) fL MCH 30.3 (28.0-33.3) pg MCHC 33.1 (31.6-35.5) g/dL RDW 19.0 H (11.5-14.5) % Plt Count 232 (140-400) K/mcL MPV 10.9 (9.4-12.4) fL Immature Gran % 0.8 (0-4) % Seg Neutrophils % 68.7 % Lymphocytes % 17.8 % Monocytes % 12.1 % Eosinophils % 0.2 % Basophils % 0.4 % Neutrophils # 6.7 (1.6-8.9) K/mcL Lymphocytes # 1.7 (0.6-4.6) K/mcL Monocytes # 1.2 (0.0-1.3) K/mcL Eosinophils # 0.0 (0.0-0.6) K/mcL Basophils # 0.0 (0.0-0.2) K/mcL Nucleated RBCs/100 WBC 0.2 H (0) /100 WBC Sodium 138 (136-145) mEq/L Potassium 3.5 (3.5-5.1) mEq/L Chloride 99 (98-107) mEq/L Carbon Dioxide 27 (23-29) mEq/L BUN 14 (8-23) mg/dL Creatinine 0.87 (0.60-1.20) mg/dL Est GFR ( Amer) > 60 (> 60) Est GFR (Non-Af Amer) > 60 (> 60) BUN/Creatinine Ratio 16 (6-26) Glucose 106 H (70-105) mg/dL Calculated Osmolality 287 (280-300) Lactic Acid 4.2 H* (0.5-2.2) mmol/L Calcium 9.7 (8.6-10.3) mg/dL Total Bilirubin 0.5 (0.3-1.0) mg/dL AST 14 (13-39) Units/L ALT 11 (7-52) Units/L Alkaline Phosphatase 75 (34-104) Units/L Troponin I < 0.03 (< 0.04) ng/mL Serum Total Protein 6.5 (6.4-8.9) g/dL Albumin 4.0 (3.5-5.7) g/dL Globulin 2.5 (2.4-3.5) g/dL Albumin/Globulin Ratio 1.6 (1.1-2.2) Lipase 14 (11-82) Units/L Attestation Statement - Attestation Attestation: I examined this patient and my medical decision-making was reviewed with the Resident Physician. I agree with the documented findings, disposition and treatment plan as described except to the extent set forth below. 73 year old female prsents to the ED with complaints of abdominal pain and has not had a bowel movement in one week or gas passage. Patinet state that she has a previous history of abdominal surgeries. Patinet states that she has been nauseated secondary to it and currently is being treated for multiple myeloma and is finished with chemo but it currenlty geting injections. Her lactic acidosis is elevated. Concern is for small bowel obstruction and bowel necrosis. Likely will admit to medicine
--- NOTE | 2018-08-07 19:16 | Emergency Department Note ---
Disposition Clinical Impression: Lactic acidosis Abdominal pain Qualifiers: Abdominal location: unspecified location Qualified Code(s): R10.9 - Unspecified abdominal pain Constipation Qualifiers: Constipation type: unspecified constipation type Qualified Code(s): K59.00 - Constipation, unspecified Nausea and vomiting Qualifiers: Vomiting type: unspecified Vomiting Intractability: non-intractable Qualified Code(s): R11.2 - Nausea with vomiting, unspecified Disposition: Admitted As Inpatient Condition: Good Time of Disposition: 21:39 Abdominal Pain HPI - General Chief Complaint: ED Abdominal Pain Stated Complaint: contipation/vomiting Time Seen by Provider: 08/07/18 12:06 Source: patient Mode of arrival: ambulatory Limitations: no limitations Nursing Notes Reviewed: Yes Vital Signs Reviewed: Yes - History of Present Illness HPI Narrative: 73-year-old female that was a signout from the day team arrives to the emergency department with complaint of abdominal discomfort. Patient was also noted to have constipation. Briefly, this is a 73-year-old female with history of multiple myeloma arrives to the emergency department with constipation or vomiting. The patient is currently receiving chemotherapy for her multiple myeloma. CT scan with noncontrast revealed a pericecal mass. After speaking with general surgery, day team in general surgery came occlusion they will need to obtain a CT with oral contrast to determine if this is an ovarian mass despite patient's previous history of total hysterectomy. Patient had an ultrasound and CT scan with oral contrast pending. If pericecal mass that is not involving ovarian tissue, recommendation of admission and consultation with general surgery again here at [facility]. If concern for ovarian tissue, recommendation of transfer to higher level of acuity that has [facility] [employer] oncology. The patient states her nausea is well controlled on my evaluat ion in the room. She is not complaining of any abdominal discomfort at this time. Patient remains constipated. CT scan with oral contrast as well as ultrasounds pending. Pain Scale: 8 - Related Data Home Medications Medication Instructions Recorded Confirmed Cholecalciferol (D-3) [Vitamin D] 1,000 unit PO DAILY 02/14/18 07/25/18 Citalopram Hydrobromide 20 mg PO BID 02/14/18 07/25/18 [Citalopram HBr] Fesoterodine Fumarate [Toviaz] 4 mg PO DAILY 02/14/18 07/25/18 Furosemide [Lasix] 20 mg PO DAILY PRN 02/14/18 07/25/18 Pantoprazole Sodium [Protonix] 40 mg PO DAILY 02/14/18 07/25/18 Verapamil [Isoptin] 120 mg PO BID 02/14/18 07/25/18 Vit C/E/Zn/Coppr/Lutein/Zeaxan 1 cap PO DAILY 02/14/18 07/25/18 [Preservision Areds 2 Softgel] Ubidecarenone [Co Q10] 200 mg PO DAILY 02/24/18 07/25/18 Ascorbic Acid [Vitamin C] 250 mg PO DAILY 05/30/18 07/25/18 Dexamethasone [Decadron] 20 mg PO QWEEK 05/30/18 07/25/18 Metformin HCl 1,000 mg PO BID 05/30/18 07/25/18 Bortezomib [Velcade] 1.3 mg SQ AD 07/19/18 07/25/18 Zoledronic Acid/Mannitol-Water 4 mg IV AD 07/19/18 07/25/18 [Zometa 4 mg/100 ml Injection] Previous Rx's Medication Instructions Recorded Cyanocobalamin (Vitamin B-12) 1 tab PO DAILY #30 tablet 03/20/18 [Vitamin B12] Cyanocobalamin (B-12) [Vitamin B12] 1,000 mcg IM QMONTH #12 vial 03/24/18 Ondansetron HCl [Zofran] 1 tab PO Q6H PRN #30 tablet 07/04/18 Prochlorperazine Maleate 1 tab PO Q6HR PRN #30 tablet 07/04/18 [Compazine] Potassium Chloride [K-Tab ER] 10 meq PO BID #30 tablet.er 07/05/18 Aspirin 325 mg PO DAILY 30 Days #30 tablet 07/19/18 Atorvastatin [Lipitor] 40 mg PO HS 30 Days #30 tablet 07/19/18 Polyethylene Glycol 3350 [MiraLAX] 17 gm PO DAILY #30 powd.pack 08/07/18 Allergies Allergy/AdvReac Type Severity Reaction Status Date / Time Amoxicillin [From Augmentin] Allergy Diarrhea Verified 07/25/18 09:17 clavulanic acid Allergy Diarrhea Verified 07/25/18 09:17 [From Augmentin] Sulfa (Sulfonamide Allergy See Verified 07/25/18 09:17 Antibiotics) Comments All systems ED: reviewed and negative except as stated. Constitutional: Denies: fever, chills, weakness ENT ED: Denies: dysphagia Cardiovascular: Denies: chest pain Respiratory: Denies: dyspnea Gastrointestinal: Reports: abdominal pain, nausea, vomiting. Denies: diarrhea, constipation Genitourinary: Denies: urgency, dysuria Musculoskeletal: Denies: back pain Integumentary: Denies: rash Neurological: Denies: headache Abdominal Pain PMH - Past Medical History Medical history: Reports: arthritis, cancer (multiple myeloma), diabetes, GERD, hyperlipidemia, hypertension, other Female Surgical History: Reports: appendectomy, cholecystectomy, hysterectomy, knee replacement, orthopedic, other, other Psychiatric history: Reports: anxiety, depression - Social History Smoking status: Former smoker Alcohol use: Reports: rarely Drug use: Reports: none Physical Exam - General Limitations: no limitations General appearance: alert, in no apparent distress - Head Head exam: atraumatic, normocephalic, normal inspection - Eye Eye exam: Present: normal appearance, PERRL, EOMI - ENT ENT exam: normal exam, normal oropharynx, mucous membranes moist - Neck Neck exam: Present: normal inspection, full ROM, trachea midline - Chest Chest inspection: Present: normal inspection, symmetric chest wall rise - Respiratory Respiratory exam: Present: normal lung sounds bilaterally - Cardiovascular Cardiovascular exam: Present: normal rhythm, tachycardia, normal heart sounds - Abdominal Exam Abdominal exam: Present: soft, tenderness (Diffuse). Absent: distention, guarding, rebound, rigidity, Bravo's sign, Rovsing's sign - Extremities Exam Extremities exam: Present: normal inspection, full ROM. Absent: tenderness, ped al edema - Neurological Exam Neurological exam: Present: alert, oriented X3 - Skin Skin exam: Present: warm, dry, intact, normal color Course Vital Signs Temperature 98.0 F 08/07/18 12:02 Pulse Rate 105 08/07/18 12:02 Respiratory Rate 16 08/07/18 12:02 Blood Pressure 146/89 08/07/18 12:02 O2 Sat by Pulse Oximetry 96 08/07/18 12:02 Temperature 98.8 F 08/07/18 20:04 Pulse Rate 88 08/07/18 20:04 Respiratory Rate 18 08/07/18 20:04 Blood Pressure 157/93 08/07/18 20:04 O2 Sat by Pulse Oximetry 94 08/07/18 20:04 Oxygen Delivery Oxygen Delivery Room Air Abdominal Pain - MDM Narrative Medical decision making narrative: Patient's workup in the emergency department demonstrates findings consistent with a pericecal mass. The patient was noted to be constipated. No bowel obstruction was noted. The patient's nausea is well controlled. The patient was started on milk and molasses enema. Patient's nausea control Finneran. We will admit the patient to observation for nausea control and pain control. The case was discussed with on-call oncology who agreed to plan of care. Accepted by Dr. Faith. No further questions or concerns noted. - Lab Data Lab results reviewed: Yes I reviewed the patient's lab results. Result diagrams: 08/07/18 13:52 08/07/18 13:52 Lab Results 08/07/18 08/07/18 08/07/18 Range/Units 13:52 13:52 14:01 WBC 9.7 (4.3-11.1) K/mcL RBC 4.12 (3.82-4.97) M/mcL Hgb 12.5 (11.5-15.4) g/dL Hct 37.8 (35.3-44.9) % MCV 91.7 (83.0-100.0) fL MCH 30.3 (28.0-33.3) pg MCHC 33.1 (31.6-35.5) g/dL RDW 19.0 H (11.5-14.5) % Plt Count 232 (140-400) K/mcL MPV 10.9 (9.4-12.4) fL Immature Gran % 0.8 (0-4) % Seg Neutrophils % 68.7 % Lymphocytes % 17.8 % Monocytes % 12.1 % Eosinophils % 0.2 % Basophils % 0.4 % Neutrophils # 6.7 (1.6-8.9) K/mcL Lymphocytes # 1.7 (0.6-4.6) K/mcL Monocytes # 1.2 (0.0-1.3) K/mcL Eosinophils # 0.0 (0.0-0.6) K/mcL Basophils # 0.0 (0.0-0.2) K/mcL Nucleated RBCs/100 WBC 0.2 H (0) /100 WBC Sodium 138 (136-145) mEq/L Potassium 3.5 (3.5-5.1) mEq/L Chloride 99 (98-107) mEq/L Carbon Dioxide 27 (23-29) mEq/L BUN 14 (8-23) mg/dL Creatinine 0.87 (0.60-1.20) mg/dL Est GFR ( Amer) > 60 (> 60) Est GFR (Non-Af Amer) > 60 (> 60) BUN/Creatinine Ratio 16 (6-26) Glucose 106 H (70-105) mg/dL Calculated Osmolality 287 (280-300) Lactic Acid 4.2 H* (0.5-2.2) mmol/L Calcium 9.7 (8.6-10.3) mg/dL Total Bilirubin 0.5 (0.3-1.0) mg/dL AST 14 (13-39) Units/L ALT 11 (7-52) Units/L Alkaline Phosphatase 75 (34-104) Units/L Troponin I < 0.03 (< 0.04) ng/mL Serum Total Protein 6.5 (6.4-8.9) g/dL Albumin 4.0 (3.5-5.7) g/dL Globulin 2.5 (2.4-3.5) g/dL Albumin/Globulin Ratio 1.6 (1.1-2.2) Lipase 14 (11-82) Units/L 08/07/18 Range/Units 18:35 WBC (4.3-11.1) K/mcL RBC (3.82-4.97) M/mcL Hgb (11.5-15.4) g/dL Hct (35.3-44.9) % MCV (83.0-100.0) fL MCH (28.0-33.3) pg MCHC (31.6-35.5) g/dL RDW (11.5-14.5) % Plt Count (140-400) K/mcL MPV (9.4-12.4) fL Immature Gran % (0-4) % Seg Neutrophils % % Lymphocytes % % Monocytes % % Eosinophils % % Basophils % % Neutrophils # (1.6-8.9) K/mcL Lymphocytes # (0.6-4.6) K/mcL Monocytes # (0.0-1.3) K/mcL Eosinophils # (0.0-0.6) K/mcL Basophils # (0.0-0.2) K/mcL Nucleated RBCs/100 WBC (0) /100 WBC Sodium (136-145) mEq/L Potassium (3.5-5.1) mEq/L Chloride (98-107) mEq/L Carbon Dioxide (23-29) mEq/L BUN (8-23) mg/dL Creatinine (0.60-1.20) mg/dL Est GFR ( Amer) (> 60) Est GFR (Non-Af Amer) (> 60) BUN/Creatinine Ratio (6-26) Glucose (70-105) mg/dL Calculated Osmolality (280-300) Lactic Acid 2.4 H (0.5-2.2) mmol/L Calcium (8.6-10.3) mg/dL Total Bilirubin (0.3-1.0) mg/dL AST (13-39) Units/L ALT (7-52) Units/L Alkaline Phosphatase (34-104) Units/L Troponin I (< 0.04) ng/mL Serum Total Protein (6.4-8.9) g/dL Albumin (3.5-5.7) g/dL Globulin (2.4-3.5) g/dL Albumin/Globulin Ratio (1.1-2.2) Lipase (11-82) Units/L - Radiology Data Radiology results reviewed: Yes I reviewed the patient's radiology results. Pelvis Ultrasound 08/07/18 16:44 IMPRESSION: Probable cystic lesion of the pelvis, but characterization is incomplete. Consider contrast enhanced pelvic MRI for further characterization. D/ / Abdiel Justice / Abdiel Justice Interpreting Provider: Abdiel Justice Abdomen/Pelvis CT 08/07/18 19:00 IMPRESSION: 1. Indeterminate mass central within the pelvis is of indeterminate origin, possibly from the appendix/cecal tip versus an adnexal lesion or a primary mesenteric lesion. 2. Mild to moderate intra and extrahepatic bile duct dilatation status post cholecystectomy typical of reservoir effect. 3. Calcific atherosclerotic disease aorta. D/ / Carlos Yap / Carlos Yap Interpreting Provider: Carlos Yap
[2018-08-07] MEDS ORDERED: Milk and Molasses Enema 200 ML RC ONE (21:03)
--- NOTE | 2018-08-07 21:21 | Emergency Department Note ---
Disposition Clinical Impression: Lactic acidosis Abdominal pain Qualifiers: Abdominal location: unspecified location Qualified Code(s): R10.9 - Unspecified abdominal pain Constipation Qualifiers: Constipation type: unspecified constipation type Qualified Code(s): K59.00 - Constipation, unspecified Nausea and vomiting Qualifiers: Vomiting type: unspecified Vomiting Intractability: non-intractable Qualified Code(s): R11.2 - Nausea with vomiting, unspecified Disposition: Admitted As Inpatient Condition: Good General Adult HPI - General Chief complaint: ED Abdominal Pain Stated complaint: contipation/vomiting Time Seen by Provider: 08/07/18 12:06 Source: patient Mode of arrival: ambulatory Limitations: no limitations Nursing Notes Reviewed: Yes Vital Signs Reviewed: Yes - History of Present Illness Pain Scale: 2 - Related Data Home Medications Medication Instructions Recorded Confirmed Cholecalciferol (D-3) [Vitamin D] 1,000 unit PO DAILY 02/14/18 07/25/18 Citalopram Hydrobromide 20 mg PO BID 02/14/18 07/25/18 [Citalopram HBr] Fesoterodine Fumarate [Toviaz] 4 mg PO DAILY 02/14/18 07/25/18 Furosemide [Lasix] 20 mg PO DAILY PRN 02/14/18 07/25/18 Pantoprazole Sodium [Protonix] 40 mg PO DAILY 02/14/18 07/25/18 Verapamil [Isoptin] 120 mg PO BID 02/14/18 07/25/18 Vit C/E/Zn/Coppr/Lutein/Zeaxan 1 cap PO DAILY 02/14/18 07/25/18 [Preservision Areds 2 Softgel] Ubidecarenone [Co Q10] 200 mg PO DAILY 02/24/18 07/25/18 Ascorbic Acid [Vitamin C] 250 mg PO DAILY 05/30/18 07/25/18 Dexamethasone [Decadron] 20 mg PO QWEEK 05/30/18 07/25/18 Metformin HCl 1,000 mg PO BID 05/30/18 07/25/18 Bortezomib [Velcade] 1.3 mg SQ AD 07/19/18 07/25/18 Zoledronic Acid/Mannitol-Water 4 mg IV AD 07/19/18 07/25/18 [Zometa 4 mg/100 ml Injection] Previous Rx's Medication Instructions Recorded Cyanocobalamin (Vitamin B-12) 1 tab PO DAILY #30 tablet 03/20/18 [Vitamin B12] Cyanocobalamin (B-12) [Vitamin B12] 1,000 mcg IM QMONTH #12 vial 03/24/18 Ondansetron HCl [Zofran] 1 tab PO Q6H PRN #30 tablet 07/04/18 Prochlorperazine Maleate 1 tab PO Q6HR PRN #30 tablet 07/04/18 [Compazine] Potassium Chloride [K-Tab ER] 10 meq PO BID #30 tablet.er 07/05/18 Aspirin 325 mg PO DAILY 30 Days #30 tablet 07/19/18 Atorvastatin [Lipitor] 40 mg PO HS 30 Days #30 tablet 07/19/18 Polyethylene Glycol 3350 [MiraLAX] 17 gm PO DAILY #30 powd.pack 08/07/18 Allergies Allergy/AdvReac Type Severity Reaction Status Date / Time Amoxicillin [From Augmentin] Allergy Diarrhea Verified 07/25/18 09:17 clavulanic acid Allergy Diarrhea Verified 07/25/18 09:17 [From Augmentin] Sulfa (Sulfonamide Allergy See Verified 07/25/18 09:17 Antibiotics) Comments Constitutional: Denies: fever, chills, weakness ENT ED: Denies: dysphagia Cardiovascular: Denies: chest pain Respiratory: Denies: dyspnea Gastrointestinal: Reports: abdominal pain, nausea, vomiting. Denies: diarrhea, constipation Genitourinary: Denies: urgency, dysuria Musculoskeletal: Denies: back pain Integumentary: Denies: rash Neurological: Denies: headache Past Medical History - Past Medical History Medical history: Reports: arthritis, cancer (multiple myeloma), diabetes, GERD, hyperlipidemia, hypertension, other Surgical history: Reports: appendectomy, cholecystectomy, hysterectomy, knee replacement, orthopedic, other Psychiatric history: Reports: anxiety, depression - Social History Smoking Status: Former smoker Smokeless Tobacco Status: No Alcohol use: Reports: rarely Drug use: Reports: none Physical Exam - General Limitations: no limitations General appearance: alert, in no apparent distress Course Vital Signs Temperature 98.0 F 08/07/18 12:02 Pulse Rate 105 08/07/18 12:02 Respiratory Rate 16 08/07/18 12:02 Blood Pressure 146/89 08/07/18 12:02 O2 Sat by Pulse Oximetry 96 08/07/18 12:02 Temperature 98.8 F 08/07/18 20:04 Pulse Rate 88 08/07/18 20:04 Respiratory Rate 18 08/07/18 20:04 Blood Pressure 157/93 08/07/18 20:04 O2 Sat by Pulse Oximetry 94 08/07/18 20:04 Oxygen Delivery Oxygen Delivery Room Air Medical Decision Making - Medical Records Medical records reviewed: Yes I reviewed the patient's medical records. - Lab Data Lab results reviewed: Yes I reviewed the patient's lab results. Result diagrams: 08/07/18 13:52 08/07/18 13:52 Lab Results 08/07/18 08/07/18 08/07/18 Range/Units 13:52 13:52 14:01 WBC 9.7 (4.3-11.1) K/mcL RBC 4.12 (3.82-4.97) M/mcL Hgb 12.5 (11.5-15.4) g/dL Hct 37.8 (35.3-44.9) % MCV 91.7 (83.0-100.0) fL MCH 30.3 (28.0-33.3) pg MCHC 33.1 (31.6-35.5) g/dL RDW 19.0 H (11.5-14.5) % Plt Count 232 (140-400) K/mcL MPV 10.9 (9.4-12.4) fL Immature Gran % 0.8 (0-4) % Seg Neutrophils % 68.7 % Lymphocytes % 17.8 % Monocytes % 12.1 % Eosinophils % 0.2 % Basophils % 0.4 % Neutrophils # 6.7 (1.6-8.9) K/mcL Lymphocytes # 1.7 (0.6-4.6) K/mcL Monocytes # 1.2 (0.0-1.3) K/mcL Eosinophils # 0.0 (0.0-0.6) K/mcL Basophils # 0.0 (0.0-0.2) K/mcL Nucleated RBCs/100 WBC 0.2 H (0) /100 WBC Sodium 138 (136-145) mEq/L Potassium 3.5 (3.5-5.1) mEq/L Chloride 99 (98-107) mEq/L Carbon Dioxide 27 (23-29) mEq/L BUN 14 (8-23) mg/dL Creatinine 0.87 (0.60-1.20) mg/dL Est GFR ( Amer) > 60 (> 60) Est GFR (Non-Af Amer) > 60 (> 60) BUN/Creatinine Ratio 16 (6-26) Glucose 106 H (70-105) mg/dL Calculated Osmolality 287 (280-300) Lactic Acid 4.2 H* (0.5-2.2) mmol/L Calcium 9.7 (8.6-10.3) mg/dL Total Bilirubin 0.5 (0.3-1.0) mg/dL AST 14 (13-39) Units/L ALT 11 (7-52) Units/L Alkaline Phosphatase 75 (34-104) Units/L Troponin I < 0.03 (< 0.04) ng/mL Serum Total Protein 6.5 (6.4-8.9) g/dL Albumin 4.0 (3.5-5.7) g/dL Globulin 2.5 (2.4-3.5) g/dL Albumin/Globulin Ratio 1.6 (1.1-2.2) Lipase 14 (11-82) Units/L 08/07/18 Range/Units 18:35 WBC (4.3-11.1) K/mcL RBC (3.82-4.97) M/mcL Hgb (11.5-15.4) g/dL Hct (35.3-44.9) % MCV (83.0-100.0) fL MCH (28.0-33.3) pg MCHC (31.6-35.5) g/dL RDW (11.5-14.5) % Plt Count (140-400) K/mcL MPV (9.4-12.4) fL Immature Gran % (0-4) % Seg Neutrophils % % Lymphocytes % % Monocytes % % Eosinophils % % Basophils % % Neutrophils # (1.6-8.9) K/mcL Lymphocytes # (0.6-4.6) K/mcL Monocytes # (0.0-1.3) K/mcL Eosinophils # (0.0-0.6) K/mcL Basophils # (0.0-0.2) K/mcL Nucleated RBCs/100 WBC (0) /100 WBC Sodium (136-145) mEq/L Potassium (3.5-5.1) mEq/L Chloride (98-107) mEq/L Carbon Dioxide (23-29) mEq/L BUN (8-23) mg/dL Creatinine (0.60-1.20) mg/dL Est GFR ( Amer) (> 60) Est GFR (Non-Af Amer) (> 60) BUN/Creatinine Ratio (6-26) Glucose (70-105) mg/dL Calculated Osmolality (280-300) Lactic Acid 2.4 H (0.5-2.2) mmol/L Calcium (8.6-10.3) mg/dL Total Bilirubin (0.3-1.0) mg/dL AST (13-39) Units/L ALT (7-52) Units/L Alkaline Phosphatase (34-104) Units/L Troponin I (< 0.04) ng/mL Serum Total Protein (6.4-8.9) g/dL Albumin (3.5-5.7) g/dL Globulin (2.4-3.5) g/dL Albumin/Globulin Ratio (1.1-2.2) Lipase (11-82) Units/L - Radiology Data Radiology results reviewed: Yes I reviewed the patient's radiology results. Pelvis Ultrasound 08/07/18 16:44 IMPRESSION: Probable cystic lesion of the pelvis, but characterization is incomplete. Consider contrast enhanced pelvic MRI for further characterization. D/ / Abdiel Justice / Abdiel Justice Interpreting Provider: Abdiel Justice Abdomen/Pelvis CT 08/07/18 19:00 IMPRESSION: 1. Indeterminate mass central within the pelvis is of indeterminate origin, possibly from the appendix/cecal tip versus an adnexal lesion or a primary mesenteric lesion. 2. Mild to moderate intra and extrahepatic bile duct dilatation status post cholecystectomy typical of reservoir effect. 3. Calcific atherosclerotic disease aorta. D/ / Carlos Yap / Carlos Yap Interpreting Provider: Carlos Yap Attestation Statement - Attestation Attestation: I, James Morton MD, personally evaluated this patient and discussed their management with the resident physician. I reviewed the resident's note and agree with the documented findings, medical decision making, and plan of care. This patient was signed out at shift change from Dr. Gonzalez and Dr. Sheryl Engel. Please refer to their notes for complete details of the history and physical examination. Patient presented with abdominal pain and nausea and vomiting and constipation for a week. She had a CT which showed a mass in the right pelvis around the cecum area. At shift change she is awaiting a repeat CT with oral contrast as well as a pelvic ultrasound. On examination patient is a well-developed well-nourished elderly female in no acute distress. She is alert and oriented 3. There is no cyanosis or diaphoresis. Sounds are clear and equal bilaterally. Heart regular. Abdomen soft with normal bowel sounds. Labs and imaging reviewed. Dr. Greer was consulted again and informed of the results of the CT with contrast. He did not feel the patient had any acute surgical abnormality and could be followed up as an outpatient. Patient is elderly and lives alone. She continues to complain of nausea and some abdominal discomfort. She does not feel comfortable going home. The hospitalist, Dr. Faith, was consulted and accepted admission of the patient.
[2018-08-07] MEDS ORDERED: traMADol 50 MG TABLET PO PRN (22:35)
[2018-08-07] MEDS ORDERED: Naloxone 0.4 MG/ML INJ IVP PRN (22:35)
[2018-08-07] MEDS ORDERED: Acetaminophen 325 MG TABLET PO PRN (22:35)
--- NOTE | 2018-08-07 23:27 | Internal Med History&Physical ---
Date of Encounter: 08/07/18 Time of Encounter: 23:23 Internal Medicine - H&P: HPI Admitted From: Home Plans for Post Hospital Care: Home History of present illness: Ms. Wayne is a 73 year old female arrives to the emergency department with complaint of abdominal discomfort. Patient was also noted to have constipation. Briefly, this is a 73-year-old female with history of multiple myeloma arrives to the emergency department with constipation or vomiting. The patient is currently receiving chemotherapy for her multiple myeloma. CT scan with noncontrast revealed a pericecal mass. She had another CT with oral contrast which revealed undetermined origin of pelvic mass, could from appendix, cecum or mesentery. Oncology was consulted and recommended outpatient follow up. Surgery also recommended outpatient follow up. Pt also had elevated lactate. She has severe constipation, we will admit pt to manage GI symptoms and trend lactate. Past Med Surg Social Fam HX - Past Medical History Medical history: arthritis, cancer (multiple myeloma), diabetes, GERD, hyperlip idemia, hypertension, other Additional medical history: sleep apnea. Psychiatric history: anxiety, depression - Past Surgical History Surgical History: appendectomy, cholecystectomy, hysterectomy, knee replacement, orthopedic, other Additional surgical history: BILATERAL KNEE REPLACEMENTS. LEFT ELBOW REPAIR - Social History Smoking Status: Former smoker Smokeless Tobacco Status: No Alcohol use: rarely Drug use: none - Family History Sister Hx Family Cardiac Disorders: Yes (VT) Hx Family Cancer: Yes (Colon) Grandfather Hx Family Cardiac Disorders: Yes (Stroke) Internal Medicine - H&P: Meds Cholecalciferol (D-3) [Vitamin D] 1,000 unit PO DAILY 02/14/18 [History] Citalopram Hydrobromide [Citalopram HBr] 40 mg PO HS 02/14/18 [History] Fesoterodine Fumarate [Toviaz] 4 mg PO DAILY 02/14/18 [History] Furosemide [Lasix] 20 mg PO DAILY PRN 02/14/18 [History] Pantoprazole Sodium [Protonix] 40 mg PO DAILY 02/14/18 [History] Verapamil [Isoptin] 120 mg PO BID 02/14/18 [History] Vit C/E/Zn/Coppr/Lutein/Zeaxan [Preservision Areds 2 Softgel] 1 cap PO DAILY 02/14/18 [History] Ubidecarenone [Co Q10] 200 mg PO DAILY 02/24/18 [History] Cyanocobalamin (Vitamin B-12) [Vitamin B12] 1 tab PO DAILY #30 tablet 03/20/18 [Rx] Cyanocobalamin (B-12) [Vitamin B12] 1,000 mcg IM QMONTH #12 vial 03/24/18 [Rx] Ascorbic Acid [Vitamin C] 250 mg PO DAILY 05/30/18 [History] Dexamethasone [Decadron] 20 mg PO QWEEK 05/30/18 [History] Metformin HCl 1,000 mg PO BID 05/30/18 [History] Ondansetron HCl [Zofran] 1 tab PO Q6H PRN #30 tablet 07/04/18 [Rx] Prochlorperazine Maleate [Compazine] 1 tab PO Q6HR PRN #30 tablet 07/04/18 [Rx] Aspirin 325 mg PO DAILY 30 Days #30 tablet 07/19/18 [Rx] Atorvastatin [Lipitor] 40 mg PO HS 30 Days #30 tablet 07/19/18 [Rx] Bortezomib [Velcade] 1.3 mg SQ QWEEK 07/19/18 [History] Zoledronic Acid/Mannitol-Water [Zometa 4 mg/100 ml Injection] 4 mg IV Q12W 07/19/18 [History] Potassium Chloride [K-Tab ER] 20 meq PO BID 08/07/18 [History] Allergy/AdvReac Type Severity Reaction Status Date / Time Amoxicillin [From Augmentin] Allergy Diarrhea Verified 07/25/18 09:17 clavulanic acid Allergy Diarrhea Verified 07/25/18 09:17 [From Augmentin] Sulfa (Sulfonamide Allergy See Verified 07/25/18 09:17 Antibiotics) Comments All Systems PM: A 10-system review of systems was performed and is negative for pertinent findings except as documented above in the HPI. Review of systems: REVIEW OF SYSTEMS: CONSTITUTIONAL: No weight loss, fever, chills, weakness or fatigue. HEENT: Eyes: No visual loss, blurred vision, double vision or yellow sclerae. Ears, Nose, Throat: No hearing loss, sneezing, congestion, runny nose or sore throat. SKIN: No rash or itching. CARDIOVASCULAR: No chest pain, chest pressure or chest discomfort. No palpitations or edema. RESPIRATORY: No shortness of breath, cough or sputum. GASTROINTESTINAL: see HPI. GENITOURINARY: No dysuria, urgency, or frequency. NEUROLOGICAL: No headache, dizziness, syncope, paralysis, ataxia, numbness or tingling in the extremities. No change in bowel or bladder control. MUSCULOSKELETAL: No muscle, back pain, joint pain or stiffness. HEMATOLOGIC: No anemia, bleeding or bruising. LYMPHATICS: No enlarged nodes. No history of splenectomy. PSYCHIATRIC: No history of depression or anxiety. ENDOCRINOLOGIC: No reports of sweating, cold or heat intolerance. No polyuria or polydipsia. - Constitutional Vitals: Temp Pulse Resp BP Pulse Ox 97.5 F L 88 16 167/92 94 08/07/18 22:54 08/07/18 22:54 08/07/18 22:54 08/07/18 22:54 08/07/18 22:54 General appearance: Present: cooperative, A&O X 3, answers questions appropriately Exam: PHYSICAL EXAMINATION: GENERAL APPEARANCE: The patient is alert, oriented and in no acute distress. HEENT: Head is normocephalic. The sinuses are nontender. Pupils are equal and reactive. The nares are patent. Oropharynx clear without lesions. NECK: Supple without lymphadenopathy. HEART: Regular rate and rhythm. LUNGS: No crackles or wheezes are heard. ABDOMEN: Soft, nontender, nondistended with good bowel sounds heard. Inguinal area is normal. EXTREMITIES: Without cyanosis, clubbing or edema. NEUROLOGICAL: Gross nonfocal. SKIN: Warm and dry without any rash. Internal Med - H&P Results - Labs CBC & Chem 7: 08/07/18 13:52 08/07/18 13:52 Labs: Short CBC 08/07/18 Range/Units 13:52 WBC 9.7 (4.3-11.1) K/mcL Hgb 12.5 (11.5-15.4) g/dL Hct 37.8 (35.3-44.9) % Plt Count 232 (140-400) K/mcL Neutrophils # 6.7 (1.6-8.9) K/mcL BMP 08/07/18 13:52 Sodium 138 Potassium 3.5 Chloride 99 Carbon Dioxide 27 BUN 14 Creatinine 0.87 Glucose 106 H Calcium 9.7 Cardiac Enzymes 08/07/18 Range/Units 13:52 Troponin I < 0.03 (< 0.04) ng/mL Liver Function 08/07/18 Range/Units 13:52 Total Bilirubin 0.5 (0.3-1.0) mg/dL AST 14 (13-39) Units/L ALT 11 (7-52) Units/L Alkaline Phosphatase 75 (34-104) Units/L Albumin 4.0 (3.5-5.7) g/dL - Impressions ITS Impressions Abdomen/Pelvis CT 08/07/18 14:49 IMPRESSION: 1. No acute process. No evidence of bowel obstruction 2. Pericecal mass. Differential possibilities include mucocele of the appendix. This may also be related to remnant right ovary. Targeted ultrasound may be helpful to better characterize this finding 3. Mild bilateral hydroureteronephrosis with no obstructing stone. Correlate with any recent history of diuresis or increased urine output 4. Nonobstructing left nephrolithiasis 5. Status post cholecystectomy and hysterectomy D/ / Jose Antonio Mcgowan MD / Jose Antonio Mcgowan MD Interpreting Provider: Jose Antonio Mcgowan MD Pelvis Ultrasound 08/07/18 16:44 IMPRESSION: Probable cystic lesion of the pelvis, but characterization is incomplete. Consider contrast enhanced pelvic MRI for further characterization. D/ / Abdiel Justice / Abdiel Justice Interpreting Provider: Abdiel Justice Abdomen/Pelvis CT 08/07/18 19:00 IMPRESSION: 1. Indeterminate mass central within the pelvis is of indeterminate origin, possibly from the appendix/cecal tip versus an adnexal lesion or a primary mesenteric lesion. 2. Mild to moderate intra and extrahepatic bile duct dilatation status post cholecystectomy typical of reservoir effect. 3. Calcific atherosclerotic disease aorta. D/ / Carlos Yap / Carlos Yap Interpreting Provider: Carlos Yap - Assessment and plan (1) Abdominal pain Current Visit: Yes Status: Acute Assessment and plan: 73-year-old female with history of multiple myeloma, currently taking ch emotherapy, history of hypertension, hyperlipidemia, and a vitamin B12 deficiency presented with abdominal pain, nausea vomiting, and constipation. CT abdomen showed no bowel obstruction, or infection, incidental finding of a pelvic mass with indeterminate region. General surgery and oncology O's were consulted. - Patient GI symptoms most likely were attributed to recent chemotherapy, although a pelvic mass was detected on CT scan, there is no bowel obstruction caused by the mass. - Post Gen. surgery and oncology recommended outpatient follow-up for the newly detected pelvic mass. - We will manage the patient GI symptoms. Once improved, we will discharge the patient. Qualifiers: Abdominal location: unspecified location Qualified Code(s): R10.9 - Unspecified abdominal pain (2) Lactic acidosis Current Visit: Yes Status: Acute Assessment and plan: Likely caused by dehydration, continue IV fluid, continue cycling lactic acid. (3) Constipation Current Visit: Yes Status: Acute Assessment and plan: Received an enema, patient had a large bowel movement. Qualifiers: Constipation type: unspecified constipation type Qualified Code(s): K59.00 - Constipation, unspecified (4) CVA (cerebral vascular accident) Current Visit: No Status: Chronic Assessment and plan: Continue home medication aspirin. Qualifiers: CVA mechanism: unspecified Qualified Code(s): I63.9 - Cerebral infarction, unspecified (5) HLD (hyperlipidemia) Current Visit: No Status: Chronic Assessment and plan: Continue home medications. Qualifiers: Hyperlipidemia type: unspecified Qualified Code(s): E78.5 - Hyperlipidemia, unspecified (6) Multiple myeloma Current Visit: No Status: Chronic Assessment and plan: Continue follow-up with oncology as outpatient. Qualifiers: Multiple myeloma remission status: unspecified Qualified Code(s): C90.00 - Multiple myeloma not having achieved remission (7) B12 deficiency anemia Current Visit: No Status: Chronic Assessment and plan: Continue vitamin B12. Qualifiers: Qualified Code(s): D51.9 - Vitamin B12 deficiency anemia, unspecified (8) Diabetes type 2, controlled Current Visit: No Status: Chronic Assessment and plan: Hold metformin, started patient on insulin sliding scale. Qualifiers: Diabetes mellitus nursing home insulin use: unspecified nursing home insulin use status Diabetes mellitus complication status: with unspecified complications Qualified Code(s): E11.8 - Type 2 diabetes mellitus with unspecified complications (9) Hypertension Current Visit: No Status: Chronic Assessment and plan: BP controlled, hold Lasix due to dehydration, continue other BP medications. Qualifiers: Hypertension type: essential hypertension (10) CHF (congestive heart failure) Current Visit: No Status: Chronic Assessment and plan: Patient currently dehydrated, hold Lasix for now, we will resume once indicated. Qualifiers: Heart failure type: diastolic Heart failure chronicity: chronic Qualified Code(s): I50.32 - Chronic diastolic (congestive) heart failure (11) Pelvic mass Current Visit: Yes Status: Acute Assessment and plan: Management see above. (12) DVT prophylaxis Current Visit: Yes Status: Acute Assessment and plan: Heparin subcutaneous. - Time Spent With Patient Total time spent is greater than 50% in coordination of care (as documented) at patient's floor/unit and/or counseling patient: Greater than 35 minutes
[2018-08-07] MEDS ORDERED: Ondansetron 4 MG/2 ML VIAL IVP PRN (23:34)
[2018-08-07] MEDS ORDERED: Cyanocobalamin (B-12) 1,000 MCG/ML VIAL IM SCH (23:45)
[2018-08-07] MEDS ORDERED: D5% in Water 1,000 ML IVC PRN (23:53)
[2018-08-07] MEDS ORDERED: *HR* Dextrose 50 % in Water (Syg) 50 ML SYRINGE IVP PRN (23:53)
[2018-08-07] MEDS ORDERED: Dextrose Gel 15 GM/37.5 ML TUBE PO PRN ×2 (23:53)
[2018-08-08] MEDS: 0.45 % Sodium Chloride w/KCl 20 MEQ/1,000 ML MLS IVC SCH ×2 (00:32→11:20)
[2018-08-08 04:30] LABS: Hematocrit 35.4 % (35.3-44.9); Hemoglobin 11.8 g/dL (11.5-15.4); Mean Corpuscular HGB Conc 33.3 g/dL (31.6-35.5); Mean Corpuscular Hemoglobin 30.5 pg (28.0-33.3); Mean Corpuscular Volume 91.5 fL (83.0-100.0); Mean Platelet Volume 11.1 fL (9.4-12.4); Platelet Count 218 K/mcL (140-400); Red Blood Count 3.87 M/mcL (3.82-4.97); Red Cell Distribution Width 19.3 % (11.5-14.5)
[2018-08-08 04:51] LABS: BUN/Creatinine Ratio 13 (6-26); Blood Urea Nitrogen 11 mg/dL (8-23); Calcium 8.9 mg/dL (8.6-10.3); Carbon Dioxide 27 mEq/L (23-29); Chloride 99 mEq/L (98-107); Glucose 135 mg/dL (70-105); Osmolality,Calculated 285 (280-300); Potassium 3.6 mEq/L (3.5-5.1); Sodium 137 mEq/L (136-145); eGFR For Non-African Americans > 60 (> 60)
[2018-08-08] MEDS ORDERED: *HR* Heparin 5,000 UNIT/ML VIAL SQ SCH (06:00)
[2018-08-08] MEDS ORDERED: Cyanocobalamin (B-12) 1,000 MCG/ML VIAL IM SCH (09:00)
[2018-08-08] MEDS ORDERED: Ascorbic Acid 500 MG TABLET PO SCH (09:00)
[2018-08-08] MEDS ORDERED: Aspirin 325 MG TABLET PO SCH (09:00)
[2018-08-08] MEDS ORDERED: Cyanocobalamin (B-12) 1,000 MCG TABLET PO SCH (09:00)
[2018-08-08] MEDS ORDERED: Multivit/Ca/Min/Fe/FA 1 TAB TABLET PO SCH (09:00)
[2018-08-08] MEDS ORDERED: Cholecalciferol (D-3) 1,000 UNIT TABLET PO SCH (09:00)
[2018-08-08] MEDS: Insulin LISPRO 300 UNITS/3 ML VIAL SQ SCH ×2 (09:06→12:30)
[2018-08-08 11:02] VITALS: BP 163/105
--- NOTE | 2018-08-08 13:09 | Discharge Summary ---
- NOTES TO OUTPATIENT PROVIDER Notes to Outpatient Provider: f/u with oncology within 2 weeks. f/u with PCP within a week. Date of Encounter: 08/08/18 Time of Encounter: 13:05 - Discharge Diagnosis (1) Abdominal pain Priority: Primary Status: Resolved Qualifiers: Abdominal location: unspecified location Qualified Code(s): R10.9 - Unspecified abdominal pain (2) Lactic acidosis Priority: Primary Status: Resolved (3) Constipation Priority: Primary Status: Resolved Qualifiers: Constipation type: unspecified constipation type Qualified Code(s): K59.00 - Constipation, unspecified (4) CVA (cerebral vascular accident) Priority: Secondary Status: Chronic Qualifiers: CVA mechanism: unspecified Qualified Code(s): I63.9 - Cerebral infarction, unspecified (5) HLD (hyperlipidemia) Priority: Secondary Status: Chronic Qualifiers: Hyperlipidemia type: unspecified Qualified Code(s): E78.5 - Hyperlipidemia, unspecified (6) Multiple myeloma Priority: Secondary Status: Chronic Qualifiers: Multiple myeloma remission status: unspecified Qualified Code(s): C90.00 - Multiple myeloma not having achieved remission (7) B12 deficiency anemia Priority: Secondary Status: Chronic Qualifiers: Qualified Code(s): D51.9 - Vitamin B12 deficiency anemia, unspecified (8) Diabetes type 2, controlled Priority: Secondary Status: Chronic Qualifiers: Diabetes mellitus intermediate insulin use: unspecified intermediate insulin use status Diabetes mellitus complication status: with unspecified complications Qualified Code(s): E11.8 - Type 2 diabetes mellitus with unspecified complications (9) Hypertension Priority: Secondary Status: Chronic Qualifiers: Hypertension type: essential hypertension (10) CHF (congestive heart failure) Priority: Secondary Status: Chronic Qualifiers: Heart failure type: diastolic Heart failure chronicity: chronic Qualified Code(s): I50.32 - Chronic diastolic (congestive) heart failure (11) Pelvic mass Priority: Primary Status: Acute (12) DVT prophylaxis Priority: Primary Status: Acute Hospital course: Ms. Wayne is a 73 year old female arrives to the emergency department with complaint of abdominal discomfort. Patient was also noted to have constipation. Briefly, this is a 73-year-old female with history of multiple myeloma arrives to the emergency department with constipation or vomiting. The patient is currently receiving chemotherapy for her multiple myeloma. CT scan with noncontrast revealed a pericecal mass. She had another CT with oral contrast which revealed undetermined origin of pelvic mass, could from appendix, cecum or mesentery. Oncology was consulted and recommended outpatient follow up. Surgery also recommended outpatient follow up. Pt also had elevated lactate. She has severe constipation. She was admitted. She received IV fluid and laxatives. Lactic acidosis resolved and her bowel moved. On the discharge day, her vitals were stable. All the tests results were discussed with patient and family. She agrees to f/u with oncology for multiple myeloma and newly found pelvis mass. She will continue f/u with PCP for her care. Discharge discussed with: patient, family Time spent discussing smoking cessation with patient: more than 10 minutes - Time Spent with Patient Total time spent providing and/or coordinating discharge services: Greater than 30 minutes - Discharge Medications Prescriptions: Polyethylene Glycol 3350 [MiraLAX] 17 gm PO DAILY #30 powd.pack Home Medications: Cholecalciferol (D-3) [Vitamin D] 1,000 unit PO DAILY 02/14/18 [History] Citalopram Hydrobromide [Citalopram HBr] 40 mg PO HS 02/14/18 [History] Fesoterodine Fumarate [Toviaz] 4 mg PO DAILY 02/14/18 [History] Furosemide [Lasix] 20 mg PO DAILY PRN 02/14/18 [History] Pantoprazole Sodium [Protonix] 40 mg PO DAILY 02/14/18 [History] Verapamil [Isoptin] 120 mg PO BID 02/14/18 [History] Vit C/E/Zn/Coppr/Lutein/Zeaxan [Preservision Areds 2 Softgel] 1 cap PO DAILY 02/14/18 [History] Ubidecarenone [Co Q10] 200 mg PO DAILY 02/24/18 [History] Cyanocobalamin (Vitamin B-12) [Vitamin B12] 1 tab PO DAILY #30 tablet 03/20/18 [Rx] Cyanocobalamin (B-12) [Vitamin B12] 1,000 mcg IM QMONTH #12 vial 03/24/18 [Rx] Ascorbic Acid [Vitamin C] 250 mg PO DAILY 05/30/18 [History] Dexamethasone [Decadron] 20 mg PO QWEEK 05/30/18 [History] Metformin HCl 1,000 mg PO BID 05/30/18 [History] Ondansetron HCl [Zofran] 1 tab PO Q6H PRN #30 tablet 07/04/18 [Rx] Prochlorperazine Maleate [Compazine] 1 tab PO Q6HR PRN #30 tablet 07/04/18 [Rx] Aspirin 325 mg PO DAILY 30 Days #30 tablet 07/19/18 [Rx] Atorvastatin [Lipitor] 40 mg PO HS 30 Days #30 tablet 07/19/18 [Rx] Bortezomib [Velcade] 1.3 mg SQ QWEEK 07/19/18 [History] Zoledronic Acid/Mannitol-Water [Zometa 4 mg/100 ml Injection] 4 mg IV Q12W 07/19/18 [History] Potassium Chloride [K-Tab ER] 20 meq PO BID 08/07/18 [History] Acyclovir [Zovirax] 400 mg PO BID 08/08/18 [History] Polyethylene Glycol 3350 [MiraLAX] 17 gm PO DAILY #30 powd.pack 08/08/18 [Rx] Allergies/Adverse Reactions: Allergy/AdvReac Type Severity Reaction Status Date / Time Sulfa (Sulfonamide Allergy Hives Verified 08/08/18 11:11 Antibiotics) Amoxicillin [From Augmentin] AdvReac Diarrhea Verified 08/08/18 11:11 clavulanic acid AdvReac Diarrhea Verified 08/08/18 11:11 [From Augmentin] Date of admission: 08/07/18 21:39 Primary care physician: Karthikeyan Quinones MD Consults: 08/07/18 21:05 Consult to Oncology [CONS] Stat Consulting Provider: [facility] [place] Reason for Consult: New abdominal mass Call Completed: Yes Anticipated date of discharge: 08/08/18 - Constitutional Vitals: Temp Pulse Resp BP Pulse Ox 98.1 F 86 16 163/105 93 08/08/18 11:02 08/08/18 11:02 08/08/18 11:02 08/08/18 11:02 08/08/18 11:02 General appearance: Present: cooperative, A&O X 3, answers questions appropriately Exam: PHYSICAL EXAMINATION: GENERAL APPEARANCE: The patient is alert, oriented and in no acute distress. HEENT: Head is normocephalic. The sinuses are nontender. Pupils are equal and reactive. The nares are patent. Oropharynx clear without lesions. NECK: Supple without lymphadenopathy. HEART: Regular rate and rhythm. LUNGS: No crackles or wheezes are heard. ABDOMEN: Soft, nontender, nondistended with good bowel sounds heard. Inguinal area is normal. EXTREMITIES: Without cyanosis, clubbing or edema. NEUROLOGICAL: Gross nonfocal. SKIN: Warm and dry without any rash. - Patient Status Disposition: Home, Self-Care Condition: Good Functional capacity at discharge: independent ambulation Overall status at discharge: patient is progressing back to baseline - Discharge Instructions Follow Up With: Karthikeyan Quinones MD [Primary Care Provider] - - Diet and Activity Activity: increase activity as tolerated Diet: advance to your usual diet
[2018-08-08] MEDS ORDERED: Insulin LISPRO 300 UNITS/3 ML VIAL SQ SCH (21:00)
--- NOTE | 2018-08-09 16:28 | Electrocardiograph Report ---
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
== END 2018-08-08 13:50 | disposition home or self-care (01) ==
LOC: EMEROOARM 11:58 → 3BNU 11:58
PROVIDERS: ADMIT Family Medicine; ATTEND Family Medicine

== ENCOUNTER 2020-06-17 04:42 | Observation (INO) ==
[2020-06-17] MEDS ORDERED: Aspirin 81 MG TAB.CHEW PO ONE (04:46)
[2020-06-17 05:20] LABS: Basophils % 0.3 %; Eosinophils # 0.1 K/mcL (0.0-0.6); Hematocrit 37.6 % (35.3-44.9); Hemoglobin 12.1 g/dL (11.5-15.4); Immature Granulocytes % 0.3 % (0-4); Lymphocytes % 47.5 %; Mean Corpuscular HGB Conc 32.2 g/dL (31.6-35.5); Mean Corpuscular Volume 93.1 fL (83.0-100.0); Mean Platelet Volume 11.2 fL (9.4-12.4); Monocytes # 1.3 K/mcL (0.0-1.3); Monocytes % 11.3 %; Neutrophils # 4.6 K/mcL (1.6-8.9); Platelet Count 160 K/mcL (140-400); Red Blood Count 4.04 M/mcL (3.82-4.97); Red Cell Distribution Width 14.6 % (11.5-14.5); Segmented Neutrophils % 39.6 %; White Blood Count 11.7 K/mcL (4.3-11.1)
[2020-06-17 05:24] LABS: Lymphocytes # 5.6 K/mcL (0.6-4.6)
[2020-06-17] MEDS: Nitroglycerin 0.4 MG TAB.SUBL SL SCH ×2 (05:27→23:24)
[2020-06-17] MEDS ORDERED: Isovue-370 500 ML BOTTLE IVP ONE (05:28)
[2020-06-17 05:44] LABS: BUN/Creatinine Ratio 18 (6-26); Blood Urea Nitrogen 15 mg/dL (8-23); Calcium 8.7 mg/dL (8.6-10.3); Carbon Dioxide 27 mEq/L (23-29); Chloride 106 mEq/L (98-107); Glucose 125 mg/dL (70-105); Osmolality,Calculated 296 (280-300); Potassium 3.4 mEq/L (3.5-5.1); Sodium 142 mEq/L (136-145); Troponin I < 0.03 ng/mL (< 0.04); eGFR For African Americans > 60 (> 60); eGFR For Non-African Americans > 60 (> 60)
[2020-06-17 05:50] LABS: Platelet Estimate Normal (Normal); Reactive Lymphocytes Present (Not Present)
[2020-06-17] MEDS ORDERED: Morphine Sulfate 2 MG/ML SYRINGE IVP ONE ×2 (08:07→15:02)
[2020-06-17] MEDS ORDERED: *HR* Heparin 5,000 UNIT/ML VIAL IVP ONE (08:23)
[2020-06-17] MEDS ORDERED: *HR* Heparin 5,000 UNIT/ML VIAL IVP PRN ×2 (08:23)
[2020-06-17] MEDS: Heparin 25,000UNIT/250ML 1/2NS 25,000 UNIT/250 ML IV.SOLN IVC SCH (08:39)
[2020-06-17 09:05] LABS: Hematocrit 36.1 % (35.3-44.9); Hemoglobin 11.8 g/dL (11.5-15.4); Mean Corpuscular HGB Conc 32.7 g/dL (31.6-35.5); Mean Corpuscular Hemoglobin 31.2 pg (28.0-33.3); Mean Corpuscular Volume 95.5 fL (83.0-100.0); Mean Platelet Volume 11.8 fL (9.4-12.4); Platelet Count 143 K/mcL (140-400); Red Blood Count 3.78 M/mcL (3.82-4.97); Red Cell Distribution Width 14.6 % (11.5-14.5); White Blood Count 10.2 K/mcL (4.3-11.1)
[2020-06-17 09:11] LABS: INR 1.3; Prothrombin Time 15.1 Seconds (9.4-12.1)
[2020-06-17 09:19] LABS: Heparin anti-factor XA UFH > 2.00 IU/mL (0.30-0.70)
[2020-06-17] MEDS ORDERED: Perflutren Lipid Microsphere 1.3 ML in 0.9 % Sodium Chloride 8.7 ML IVP PRN (10:14)
[2020-06-17] MEDS: Nitroglycerin 0.4 MG TAB.SUBL SL PRN ×3 (14:48→14:58)
[2020-06-17] MEDS ORDERED: Dextrose Gel 15 GM/37.5 ML TUBE PO PRN ×2 (16:07)
[2020-06-17] MEDS ORDERED: *HR* Dextrose 50 % in Water (Vial) 50 ML VIAL IVP PRN (16:07)
[2020-06-17] MEDS ORDERED: D5% in Water 1,000 ML IVC PRN (16:07)
[2020-06-17] MEDS: Insulin LISPRO 300 UNITS/3 ML VIAL SQ SCH ×2 (17:07→19:47)
[2020-06-17] MEDS: lisinopriL 10 MG TABLET PO SCH (19:52)
[2020-06-17] MEDS: traZODone 50 MG TABLET PO SCH (19:53)
[2020-06-17] MEDS: *HR* OxyCODONE/APAP 5/325 TABLET PO PRN (19:53)
[2020-06-17] MEDS: Famotidine 20 MG TABLET PO SCH (19:53)
[2020-06-18] MEDS: *HR* OxyCODONE/APAP 5/325 TABLET PO PRN ×3 (03:45→23:08)
[2020-06-18 04:22] LABS: Basophils % 0.2 %; Eosinophils # 0.1 K/mcL (0.0-0.6); Eosinophils % 1.2 %; Hematocrit 35.4 % (35.3-44.9); Hemoglobin 11.5 g/dL (11.5-15.4); Immature Granulocytes % 0.2 % (0-4); Lymphocytes # 5.4 K/mcL (0.6-4.6); Lymphocytes % 44.9 %; Mean Corpuscular HGB Conc 32.5 g/dL (31.6-35.5); Mean Corpuscular Hemoglobin 30.5 pg (28.0-33.3); Mean Corpuscular Volume 93.9 fL (83.0-100.0); Mean Platelet Volume 11.8 fL (9.4-12.4); Monocytes # 2.4 K/mcL (0.0-1.3); Monocytes % 19.8 %; Platelet Count 150 K/mcL (140-400); Red Blood Count 3.77 M/mcL (3.82-4.97); Red Cell Distribution Width 14.8 % (11.5-14.5); Segmented Neutrophils % 33.7 %
[2020-06-18 04:24] LABS: INR 1.2; Prothrombin Time 14.2 Seconds (9.4-12.1)
[2020-06-18 04:40] LABS: Alanine Aminotransferase 12 Units/L (7-52); Albumin 3.9 g/dL (3.5-5.7); Albumin/Globulin Ratio 1.9 (1.1-2.2); Alkaline Phosphatase 87 Units/L (34-104); Aspartate Amino Transferase 14 Units/L (13-39); BUN/Creatinine Ratio 17 (6-26); Bilirubin,Total 0.5 mg/dL (0.3-1.0); Blood Urea Nitrogen 11 mg/dL (8-23); Calcium 8.4 mg/dL (8.6-10.3); Carbon Dioxide 25 mEq/L (23-29); Chloride 107 mEq/L (98-107); Globulin 2.1 g/dL (2.4-3.5); Glucose 131 mg/dL (70-105); Magnesium 1.8 mg/dL (1.6-2.6); Osmolality,Calculated 291 (280-300); Potassium 3.4 mEq/L (3.5-5.1); Sodium 140 mEq/L (136-145); eGFR For African Americans > 60 (> 60); eGFR For Non-African Americans > 60 (> 60)
[2020-06-18] MEDS: Heparin 25,000UNIT/250ML 1/2NS 25,000 UNIT/250 ML IV.SOLN IVC SCH (08:24)
[2020-06-18] MEDS: Insulin LISPRO 300 UNITS/3 ML VIAL SQ SCH ×4 (08:31→20:15)
[2020-06-18] MEDS: Cyanocobalamin (B-12) 1,000 MCG TABLET PO SCH (08:32)
[2020-06-18] MEDS: Tolterodine LA (24 HR) 4 MG CAP.ER.24H PO SCH (08:32)
[2020-06-18] MEDS: Ascorbic Acid 500 MG TABLET PO SCH (08:32)
[2020-06-18] MEDS: lisinopriL 10 MG TABLET PO SCH ×2 (08:32→20:15)
[2020-06-18] MEDS: Cholecalciferol (D-3) 1,000 UNIT (25MCG) TABLET PO SCH (08:32)
[2020-06-18] MEDS: Famotidine 20 MG TABLET PO SCH (08:32)
[2020-06-18] MEDS ORDERED: Aspirin 81 MG TAB.CHEW PO SCH (09:00)
[2020-06-18] MEDS: Apixaban 5 MG TABLET PO SCH ×2 (11:12→20:15)
[2020-06-18] MEDS: Pantoprazole 40 MG VIAL IVP SCH (16:35)
[2020-06-18] MEDS: traZODone 50 MG TABLET PO SCH (20:15)
[2020-06-19] MEDS: Pantoprazole 40 MG VIAL IVP SCH (05:20)
[2020-06-19] MEDS ORDERED: Regadenoson 0.4 MG/5 ML SYRINGE IVP ONE (06:06)
[2020-06-19 08:03] LABS: Hematocrit 38.3 % (35.3-44.9); Hemoglobin 12.1 g/dL (11.5-15.4); Mean Corpuscular HGB Conc 31.6 g/dL (31.6-35.5); Mean Corpuscular Hemoglobin 29.7 pg (28.0-33.3); Mean Corpuscular Volume 93.9 fL (83.0-100.0); Mean Platelet Volume 11.7 fL (9.4-12.4); Platelet Count 153 K/mcL (140-400); Red Blood Count 4.08 M/mcL (3.82-4.97); Red Cell Distribution Width 15.1 % (11.5-14.5); White Blood Count 10.1 K/mcL (4.3-11.1)
[2020-06-19] MEDS: *HR* OxyCODONE/APAP 5/325 TABLET PO PRN ×2 (08:14→15:14)
[2020-06-19] MEDS ORDERED: lisinopriL 20 MG TABLET PO SCH (09:00)
[2020-06-19] MEDS: Cholecalciferol (D-3) 1,000 UNIT (25MCG) TABLET PO SCH (09:31)
[2020-06-19] MEDS: Cyanocobalamin (B-12) 1,000 MCG TABLET PO SCH (09:31)
[2020-06-19] MEDS: Tolterodine LA (24 HR) 4 MG CAP.ER.24H PO SCH (09:32)
[2020-06-19] MEDS: Apixaban 5 MG TABLET PO SCH (09:32)
[2020-06-19] MEDS: Ascorbic Acid 500 MG TABLET PO SCH (09:34)
[2020-06-19] MEDS: Insulin LISPRO 300 UNITS/3 ML VIAL SQ SCH ×2 (09:36→12:05)
[2020-06-19 10:34] VITALS: BP 145/86
[2020-06-19 10:37] LABS: BUN/Creatinine Ratio 17 (6-26); Blood Urea Nitrogen 13 mg/dL (8-23); Calcium 9.2 mg/dL (8.6-10.3); Carbon Dioxide 26 mEq/L (23-29); Chloride 105 mEq/L (98-107); Glucose 141 mg/dL (70-105); Osmolality,Calculated 288 (280-300); Potassium 3.8 mEq/L (3.5-5.1); Sodium 138 mEq/L (136-145); eGFR For African Americans > 60 (> 60); eGFR For Non-African Americans > 60 (> 60)
== END 2020-06-19 16:31 | disposition home or self-care (01) ==
LOC: EMEROOARM 04:42 → 3BNU 04:42
PROVIDERS: ADMIT Family Medicine; ATTEND Family Medicine